=== PATIENT | female | born 1995 | race Caucasian/White ===

== ENCOUNTER 2018-06-13 21:42 | Emergency (ER) | payer OTHER ==
[2018-06-13 23:50] LABS: Absolute Monocytes 0.6 K/uL (0.1-1.3); Absolute Neutrophil 5.9 K/uL (1.8-8.0); Eosinophils % 3.8 % (0-4.4); Hematocrit 41.2 % (36.0-45.0); Lymphocytes % 21.9 % (15.3-44.8); MPV 10.6 fL (7.6-11.3); Monocytes % 7.2 % (3.3-12.3); RBC Red Blood Cell Count 4.42 M/uL (3.86-4.86)
[2018-06-14 00:04] LABS: Protime INR 1.05
[2018-06-14 00:08] LABS: ALT/SGPT 23 U/L (12-78); AST/SGOT 10 U/L (15-37); Albumin 4.3 g/dL (3.4-5.0); Alkaline Phosphatase 73 U/L (45-117); BUN Blood Urea Nitrogen 16 mg/dL (7-18); Bicarbonate 26 mmol/L (21-32); Bilirubin Direct 0.2 mg/dL (0-0.2); Bilirubin Total 0.7 mg/dL (0.2-1.0); Glucose Level 89 mg/dL (74-106); Lipase 139 U/L (73-393); Magnesium 2.2 mg/dL (1.8-2.4); NT PRO-BNP 113 pg/mL (<125); Potassium 3.8 mmol/L (3.5-5.1); Protein, Total 7.5 g/dL (6.4-8.2); Sodium Level 142 mmol/L (136-145); Troponin (Emerg Dept Use Only) < 0.02 ng/mL (0.0-0.045)
[2018-06-14] MEDS ORDERED: MORPHINE 4 MG/ML SYR ONE (01:23)
[2018-06-14] MEDS ORDERED: ONDANSETRON 4 MG/2 ML VIAL ONE (01:24)
--- NOTE | 2018-06-14 01:24 | ER ---
Nurse's Notes [facility] Name: Tiffany Madrid Age: 23 yrs Sex: Female : 1995 Arrival Date: 06/13/2018 Time: 21:46 Bed 24 Private MD: Diagnosis: Malaise and fatigue;Lupus erythematosus Presentation: 06/13 22:17 Presenting complaint: Patient states: Chest pain that is when when she coughs or takes aj1 a deep breath, dizziness, shortness of breath for the past week. Reports non-productive cough, denies fever. Transition of care: patient was not received from another setting of care. Onset of symptoms was June 07, 2017. Risk Assessment: Do you want to hurt yourself or someone else? Patient reports no desire to harm self or others. Initial Sepsis Screen: Does the patient meet any 2 criteria? No. Patient's initial sepsis screen is negative. Does the patient have a suspected source of infection? No. Patient's initial sepsis screen is negative. Care prior to arrival: None. 22:17 Method Of Arrival: Wheelchair aj1 22:17 Acuity: KELSEY 3 aj1 Triage Assessment: 22:20 General: Appears in no apparent distress. uncomfortable, Behavior is calm, cooperative, aj1 appropriate for age. Pain: Complains of pain in chest Pain currently is 8 out of 10 on a pain scale. Neuro: Level of Consciousness is awake, alert, obeys commands. Cardiovascular: Reports chest pain, Patient's skin is warm and dry. Respiratory: Reports cough that is non-productive, Airway is patent Respiratory effort is even, unlabored, Respiratory pattern is regular, symmetrical. 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 - Social history:: Smoking status: Patient/guardian denies using tobacco. - Ebola Screening: : Patient denies travel to an Ebola-affected area in the 21 days before illness onset. - Family history:: not pertinent. Screenin:00 Abuse screen: Denies threats or abuse. Denies injuries from another. Nutritional ca1 screening: No deficits noted. Tuberculosis screening: No symptoms or risk factors identified. Fall Risk None identified. IV access (20 points). Assessment: 23:00 General: Appears in no apparent distress. ill, Behavior is calm, cooperative, ca1 appropriate for age. Pain: Complains of pain in back Pain currently is 7 out of 10 on a pain scale. Neuro: Level of Consciousness is awake, alert, obeys commands, Oriented to person, place, time, situation. Cardiovascular: Heart tones S1 S2 present Capillary refill < 3 seconds Patient's skin is warm and dry. Cardiovascular: Rhythm is sinus rhythm. Respiratory: Airway is patent Respiratory effort is even, unlabored, Respiratory pattern is regular, symmetrical, Breath sounds are clear bilaterally. GI: Abdomen is round non-distended, Bowel sounds present X 4 quads. Abd is soft and non tender X 4 quads. : No signs and/or symptoms were reported regarding the genitourinary system. EENT: No signs and/or symptoms were reported regarding the EENT system. Derm: Skin is intact, Skin is pink, warm \T\ dry. Musculoskeletal: Circulation, motion, and sensation intact. 06/14 00:15 Reassessment: Patient appears in no apparent distress at this time. Patient and/or ca1 family updated on plan of care and expected duration. Pain level reassessed. Patient is alert, oriented x 3, equal unlabored respirations, skin warm/dry/pink. Vital Signs: 06/13 22:20 BP 105 / 66; Pulse 75; Resp 18; Temp 98.4(TE); Pulse Ox 100% on R/A; Height 5 ft. 11 aj1 in. (180.34 cm) (R); Pain 8/10; 23:27 BP 106 / 63; Pulse 65; Resp 18; Pulse Ox 100% on R/A; ca1 06/14 00:15 BP 101 / 76; Pulse 62; Resp 19; Pulse Ox 100% on R/A; ca1 00:43 BP 98 / 66; Pulse 62; Resp 18; Pulse Ox 100% on R/A; ca1 01:29 BP 97 / 75; Pulse 65; Resp 19; Temp 97.6; Pulse Ox 99% ; lt1 ED Course: 06/13 21:46 Patient arrived in ED. ag3 22:19 Triage completed. aj1 22:20 Arm band placed on Patient placed in waiting room. aj1 23:00 Patient has correct armband on for positive identification. Placed in gown. Bed in low ca1 position. Call light in reach. Side rails up X 1. classroom monitor on. Pulse ox on. NIBP on. Warm blanket given. 23:03 Demarco Valentine MD is Attending Physician. saman 23:27 Deana Hussein, ALEX is Primary Nurse. ca1 23:30 Inserted saline lock: 20 gauge in right antecubital area, using aseptic technique. ca1 Blood collected. 23:41 XRAY Chest (1 view) In Process Unspecified. EDMS 02 01:41 No provider procedures requiring assistance completed. IV discontinued, intact, mg2 bleeding controlled, No redness/swelling at site. Pressure dressing applied. Administered Medications: 01:15 Drug: morphine 4 mg Route: IVP; Site: right antecubital; ca1 01:41 Follow up: Response: No adverse reaction; Marked relief of symptoms mg2 01:20 Not Given (Patient Refused; pt has adverse reaction to Zofran, drops BP. ): Zofran 4 mg ca1 IVP once; over 2 minutes 01:40 Drug: SOLU-Medrol 125 mg Route: IVP; Site: right antecubital; mg2 01:41 Follow up: Response: No adverse reaction; Medication administered at discharge. mg2 Outcome: 01:24 Discharge ordered by . saman 01:41 Discharged to home ambulatory, with family. mg2 01:41 Condition: stable 01:41 Discharge instructions given to patient, family, Instructed on discharge instructions, follow up and referral plans. medication usage, Demonstrated understanding of instructions, follow-up care, medications, Prescriptions given X 2. 02:01 Patient left the ED. mg2 Signatures: Dispatcher [employer] EDIN Aislinn Miller RN RN aj1 Demarco Valentine MD MD cha Gardose, Michele, RN RN mg2 Nuha [address] ag3 Deana Hussein RN RN ca1 PerdueBety 1
--- NOTE | 2018-06-14 01:25 | EDPHYS ---
Physician Documentation [facility] Name: Tiffany Madrid Age: 23 yrs Sex: Female : 1995 Arrival Date: 06/13/2018 Time: 21:46 Bed 24 Private MD: ED Physician Demarco Valentine HPI: 06/13 23:19 This 23 yrs old Female presents to ER via Wheelchair with complaints of Pain saman All Over. 23:19 maliase. Onset: The symptoms/episode began/occurred today. Severity of symptoms: At saman their worst the symptoms were moderate in the emergency department the symptoms are unchanged. The patient has not experienced similar symptoms in the past. 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 - Social history:: Smoking status: Patient/guardian denies using tobacco. - Ebola Screening: : Patient denies travel to an Ebola-affected area in the 21 days before illness onset. - Family history:: not pertinent. ROS: 23:19 Constitutional: Negative for fever, chills, and weight loss, Eyes: Negative for injury, saman pain, redness, and discharge, ENT: Negative for injury, pain, and discharge, Neck: Negative for injury, pain, and swelling, Cardiovascular: Negative for chest pain, palpitations, and edema, Respiratory: Negative for shortness of breath, cough, wheezing, and pleuritic chest pain, Abdomen/GI: Negative for abdominal pain, nausea, vomiting, diarrhea, and constipation, Back: Negative for injury and pain, : Negative for injury, bleeding, discharge, and swelling, MS/Extremity: Negative for injury and deformity, Skin: Negative for injury, rash, and discoloration, Neuro: Negative for headache, weakness, numbness, tingling, and seizure, Psych: Negative for depression, anxiety, suicide ideation, homicidal ideation, and hallucinations, Allergy/Immunology: Negative for hives, rash, and allergies, Endocrine: Negative for neck swelling, polydipsia, polyuria, polyphagia, and marked weight changes, Hematologic/Lymphatic: Negative for swollen nodes, abnormal bleeding, and unusual bruising. Exam: 23:19 Constitutional: This is a well developed, well nourished patient who is awake, alert, saman and in no acute distress. Head/Face: Normocephalic, atraumatic. Eyes: Pupils equal round and reactive to light, extra-ocular motions intact. Lids and lashes normal. Conjunctiva and sclera are non-icteric and not injected. Cornea within normal limits. Periorbital areas with no swelling, redness, or edema. ENT: Nares patent. No nasal discharge, no septal abnormalities noted. Tympanic membranes are normal and external auditory canals are clear. Oropharynx with no redness, swelling, or masses, exudates, or evidence of obstruction, uvula midline. Mucous membranes moist. Neck: Trachea midline, no thyromegaly or masses palpated, and no cervical lymphadenopathy. Supple, full range of motion without nuchal rigidity, or vertebral point tenderness. No Meningismus. Chest/axilla: Normal chest wall appearance and motion. Nontender with no deformity. No lesions are appreciated. Cardiovascular: Regular rate and rhythm with a normal S1 and S2. No gallops, murmurs, or rubs. Normal PMI, no JVD. No pulse deficits. Respiratory: Lungs have equal breath sounds bilaterally, clear to auscultation and percussion. No rales, rhonchi or wheezes noted. No increased work of breathing, no retractions or nasal flaring. Abdomen/GI: Soft, non-tender, with normal bowel sounds. No distension or tympany. No guarding or rebound. No evidence of tenderness throughout. Back: No spinal tenderness. No costovertebral tenderness. Full range of motion. Skin: Warm, dry with normal turgor. Normal color with no rashes, no lesions, and no evidence of cellulitis. MS/ Extremity: Pulses equal, no cyanosis. Neurovascular intact. Full, normal range of motion. Neuro: Awake and alert, GCS 15, oriented to person, place, time, and situation. Cranial nerves II-XII grossly intact. Motor strength 5/5 in all extremities. Sensory grossly intact. Cerebellar exam normal. Normal gait. Psych: Awake, alert, with orientation to person, place and time. Behavior, mood, and affect are within normal limits. 06/14 01:24 Musculoskeletal/extremity: DVT Exam: No signs of deep vein thrombosis. no pain, no saman swelling, no tenderness, negative Homans' sign noted on exam, no appreciated bluish discoloration, no erythema, no increased warmth. Vital Signs: 06/13 22:20 BP 105 / 66; Pulse 75; Resp 18; Temp 98.4(TE); Pulse Ox 100% on R/A; Height 5 ft. 11 aj1 in. (180.34 cm) (R); Pain 8/10; 23:27 BP 106 / 63; Pulse 65; Resp 18; Pulse Ox 100% on R/A; ca1 06/14 00:15 BP 101 / 76; Pulse 62; Resp 19; Pulse Ox 100% on R/A; ca1 00:43 BP 98 / 66; Pulse 62; Resp 18; Pulse Ox 100% on R/A; ca1 01:29 BP 97 / 75; Pulse 65; Resp 19; Temp 97.6; Pulse Ox 99% ; lt1 MDM: 06/13 23:03 Patient medically screened. [facility] 23:20 Data reviewed: vital signs, nurses notes, lab test result(s), EKG, radiologic studies, saman plain films. 06/13 23:18 Order name: Basic Metabolic Panel; Complete Time: 01:20 [facility] 06/13 23:18 Order name: CBC with Diff; Complete Time: 01:20 [facility] 06/13 23:18 Order name: LFT's; Complete Time: 01:20 [facility] 06/13 23:18 Order name: Magnesium; Complete Time: :20 [facility] 06/13 23:18 Order name: NT PRO-BNP; Complete Time: 01:20 [facility] 06/13 23:18 Order name: PT-INR; Complete Time: 01:20 [facility] 06/13 23:18 Order name: Troponin (emerg Dept Use Only); Complete Time: :20 [facility] 06/13 23:18 Order name: XRAY Chest (1 view) [facility] 06/13 23:18 Order name: Lipase; Complete Time: 01:20 [facility] 06/13 23:18 Order name: Flu; Complete Time: 01:20 [facility] 06/13 23:18 Order name: UDS [facility] 06/13 23:18 Order name: D-Dimer; Complete Time: 01:20 [facility] 06/14 00:46 Order name: Urine Dipstick--Ancillary (enter results) [facility] 06/14 00:46 Order name: Urine --Ancillary (enter results) [facility] 06/13 23:18 Order name: EKG; Complete Time: 23:19 [facility] 06/13 23:18 Order name: Cardiac monitoring; Complete Time: 23:34 [facility] 06/13 23:18 Order name: EKG - Nurse/Tech; Complete Time: 00:34 [facility] 06/13 23:18 Order name: IV Saline Lock; Complete Time: 00:34 [facility] 06/13 23:18 Order name: Labs collected and sent; Complete Time: 00:34 [facility] 06/13 23:18 Order name: O2 Per Protocol; Complete Time: :34 [facility] 06/13 23:18 Order name: O2 Sat Monitoring; Complete Time: 00:35 [facility] 06/13 23:18 Order name: Urine Dipstick-Ancillary (obtain specimen); Complete Time: 00: [facility] 06/13 23:18 Order name: Urine Test (obtain specimen); Complete Time: 00:34 [facility] Administered Medications: 06/14 01:15 Drug: morphine 4 mg Route: IVP; Site: right antecubital; ca1 01:41 Follow up: Response: No adverse reaction; Marked relief of symptoms mg2 01:20 Not Given (Patient Refused; pt has adverse reaction to Zofran, drops BP. ): Zofran 4 mg ca1 IVP once; over 2 minutes 01:40 Drug: SOLU-Medrol 125 mg Route: IVP; Site: right antecubital; mg2 01:41 Follow up: Response: No adverse reaction; Medication administered at discharge. mg2 Disposition: 06/14/18 01:24 Discharged to Home. Impression: Malaise and fatigue, Lupus erythematosus. - Condition is Stable. - Discharge Instructions: Systemic Lupus Erythematosus, Adult, Weakness, Weakness, [id number]. - Prescriptions for Ibuprofen 600 mg Oral Tablet - take 1 tablet by ORAL route every 6 hours As needed take with food; 20 tablet. Medrol (Romie) 4 mg Oral Tablets, Dose Pack - take 1 tablet by ORAL route as directed - follow package instructions; 1 packet. - Medication Reconciliation Form, Thank You Letter, Antibiotic Education, Prescription Opioid Use, Work release form form. - Follow up: Private Physician; When: 2 - 3 days; Reason: Recheck today's complaints, Continuance of care, Re-evaluation by your physician. - Problem is new. - Symptoms have improved. Signatures: Dispatcher [employer] Aislinn Rivero RN RN aj1 Demarco Valentine MD MD cha Gardose, Michele, RN RN mg2 Jovita, ALEX Leblanc RN ca1 Corrections: (The following items were deleted from the chart) 02:01 01:24 06/14/2018 01:24 Discharged to Home. Impression: Malaise and fatigue; Lupus mg2 erythematosus. Condition is Stable. Forms are Medication Reconciliation Form, Thank You Letter, Antibiotic Education, Prescription Opioid Use. Follow up: Private Physician; When: 2 - 3 days; Reason: Recheck today's complaints, Continuance of care, Re-evaluation by your physician. Problem is new. Symptoms have improved. saman
[2018-06-14 01:34] LABS: Urine Blood NEGATIVE (NEG); Urine Glucose NEGATIVE (NEG); Urine Protein NEGATIVE (NEG); Urine Specific Gravity >1.030 (1.005-1.030); Urine pH 5.5 (5.0-7.0)
[2018-06-14] MEDS ORDERED: METHYLPREDNISOLONE 125 MG INJ ONE (01:44)
[2018-06-14 01:48] LABS: Barbiturates NEGATIVE (NEGATIVE); Benzodiazepines NEGATIVE (NEGATIVE); Cocaine NEGATIVE (NEGATIVE); METHAMPHETAM NEGATIVE (NEGATIVE); Methadone NEGATIVE (NEGATIVE); Opiates NEGATIVE (NEGATIVE); Phencyclidine NEGATIVE (NEGATIVE); THC Cannibis POSITIVE (NEGATIVE)
--- NOTE | 2018-06-14 07:03 | RAD REPORT ---
EXAM DESCRIPTION: RAD - Chest Single View - 06/13/2018 11:43 pm CLINICAL HISTORY: Cough, chest pain COMPARISON: November 2014 TECHNIQUE: AP portable chest image was obtained 2339 hours . FINDINGS: Lungs are clear. Heart and vasculature are normal. No measurable pleural effusion and no p neumothorax. No acute bony abnormality seen. No acute aortic findings suspected. IMPRESSION: No acute cardiopulmonary process. No suspicious change from comparison.
--- NOTE | 2018-06-14 09:49 | EKG ---
Test Date: 2018-06-13 Test Time: 23:52:28 Bar Examiner: THEO MEASUREMENT RESULTS: Intervals: Rate: 57 IA: 136 QRSD: 74 QT: 408 QTc: 397 Aiken: P: 39 IA: 136 QRS: -5 T: 8 INTERPRETIVE STATEMENTS: Sinus bradycardia with sinus arrhythmia Otherwise normal ECG Compared to ECG 12/12/2014 13:47:47 Sinus tachycardia no longer present Electronically Signed On 06-14-18 08:33:24 SERVICE OBSERVER CHIEF by Fernie Maguire
== END 2018-06-14 02:01 | disposition home or self-care (01) ==
LOC: ER 21:42
DX: L93.0 Discoid lupus erythematosus (principal); R53.83 Other fatigue; Z88.8 Allergy status to other drugs, medicaments and biological substances
CPT/HCPCS: 36415; 71045; 80048; 80076; 80307; 81003; 81025; 83690; 83735; 83880; 84484; 85025; 85379; 85610; 87804; 93005; 96374; 96375; 99284; J2405; J2930

== ENCOUNTER 2018-07-18 16:32 | Emergency (ER) | payer OTHER ==
[2018-07-18 18:09] LABS: Urine Bacteria <20 /HPF (<20); Urine Culture Reflex Order NOT NEEDED; Urine RBC NONE SEEN /HPF (NONE SEEN)
[2018-07-18] MEDS ORDERED: KETOROLAC 30 MG/ML INJ ONE (18:20)
--- NOTE | 2018-07-18 18:40 | RAD REPORT ---
EXAM DESCRIPTION: RAD - Chest Pa And Lat (2 Views) - 07/18/2018 6:33 pm CLINICAL HISTORY: lump to chest Chest pain. COMPARISON: Chest Single View dated 06/13/2018; CHEST PA AND LAT 2 VIEW dated 12/12/2014 FINDINGS: The lungs are clear. The heart is normal in size. No displaced fractures. IMPRESSION: No acute or concerning finding suspected.
[2018-07-18] MEDS ORDERED: CYCLOBENZAPRINE 10 MG TAB ONE (19:15)
[2018-07-18 19:16] LABS: Urine Blood NEGATIVE (NEG); Urine Glucose NEGATIVE (NEG); Urine Protein NEGATIVE (NEG); Urine Specific Gravity 1.025 (1.005-1.030)
--- NOTE | 2018-07-18 20:21 | ER ---
Nurse's Notes [facility] Name: Tiffany Madrid Age: 23 yrs Sex: Female : 1995 Arrival Date: 07/18/2018 Time: 16:34 Bed 17 Private MD: Mansoor Hein Diagnosis: Muscle spasm Presentation: 07/18 16:38 Presenting complaint: Patient states: "I have a lump on my shoulder, it showed up 2.5 sv weeks ago." Pt is pointing to the right upper chest wall. Transition of care: patient was not received from another setting of care. Onset of symptoms was June 2018. Care prior to arrival: None. 16:38 Method Of Arrival: Ambulatory sv 16:38 Acuity: KELSEY 4 sv 19:30 Risk Assessment: Do you want to hurt yourself or someone else? Patient reports no jd3 desire to harm self or others. Initial Sepsis Screen: Does the patient meet any 2 criteria? No. Patient's initial sepsis screen is negative. Does the patient have a suspected source of infection? No. Patient's initial sepsis screen is negative. 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 - Social history:: Smoking status: Patient/guardian denies using tobacco. - Ebola Screening: : Patient negative for fever greater than or equal to 101.5 degrees Fahrenheit, and additional compatible Ebola Virus Disease symptoms. Screenin:00 Abuse screen: Denies threats or abuse. Denies injuries from another. Nutritional ss screening: No deficits noted. Tuberculosis screening: Never had TB. Fall Risk None identified. Assessment: 18:00 General: Appears in no apparent distress. comfortable, well groomed, well developed, ss well nourished, Behavior is calm, cooperative. Pain: Complains of pain in anterior aspect of right upper chest Pain currently is 5 out of 10 on a pain scale. Quality of pain is described as tender, Pain began 2.5 weeks ago Is continuous. Neuro: Level of Consciousness is awake, alert, obeys commands, Oriented to person, place, time, situation, Speech is normal. Cardiovascular: Capillary refill < 3 seconds is brisk in bilateral fingers. Respiratory: Reports pain with respiration Airway is patent Respiratory effort is even, unlabored, Respiratory pattern is regular, symmetrical, Breath sounds are clear bilaterally. Denies cough. GI: No signs and/or symptoms were reported involving the gastrointestinal system. : No signs and/or symptoms were reported regarding the genitourinary system. EENT: Nares are clear Oral mucosa is moist. Throat is clear. Derm: Skin is intact, is healthy with good turgor, Skin is dry. Musculoskeletal: Circulation, motion, and sensation intact. Range of motion: intact in all extremities, Swelling present in mild swelling noted to R upper anterior chest wall. Denies injury. No crepitus noted. 19:10 Reassessment: Patient appears in no apparent distress at this time. Patient and/or ss family updated on plan of care and expected duration. Pain level reassessed. Patient is alert, oriented x 3, equal unlabored respirations, skin warm/dry/pink. PT reports that her pain is not any better yet, Flexeril administered as ordered. 19:27 Reassessment: Patient appears in no apparent distress at this time. No changes from jd3 previously documented assessment. Patient and/or family updated on plan of care and expected duration. Pain level reassessed. Patient is alert, oriented x 3, equal unlabored respirations, skin warm/dry/pink. 20:35 Reassessment: Patient appears in no apparent distress at this time. Patient and/or jd3 family updated on plan of care and expected duration. Pain level reassessed. Patient is alert, oriented x 3, equal unlabored respirations, skin warm/dry/pink. Vital Signs: 16:39 BP 123 / 79; Pulse 92; Resp 18; Temp 98.7(O); Pulse Ox 100% ; Height 5 ft. 10 in. sv (177.80 cm); 19:27 Pulse 60; Resp 16 S; Pulse Ox 100% on R/A; jd3 20:36 BP 104 / 68; Pulse 59; Resp 17 S; Pulse Ox 100% on R/A; jd3 ED Course: 16:34 Patient arrived in ED. mr 16:35 Cecilio Hein MD is Private Physician. mr 16:35 Mansoor Hein DO is Private Physician. mr 16:38 Triage completed. sv 16:39 Arm band placed on. sv 17:04 [facility] Virgen [facility]C [facility]. snw 17:05 Demarco Valentine MD is Attending Physician. snw 17:40 Shaniqua Delgado, ALEX is Primary Nurse. ss 17:54 Urine collected: clean catch specimen, clear. mh5 17:55 Patient has correct armband on for positive identification. Placed in gown. Bed in low mh5 position. Call light in reach. Side rails up X 1. Adult w/ patient. Warm blanket given. Pulse ox on. NIBP on. 17:55 Urine Microscopic Only Sent. mh5 18:32 Chest Pa And Lat (2 Views) XRAY In Process Unspecified. EDMS 20:20 Mansoor Hein DO is Referral Physician. snw 20:35 No provider procedures requiring assistance completed. Patient did not have IV access jd3 during this emergency room visit. Administered Medications: 18:13 Drug: TORadol 60 mg Route: IM; Site: right gluteus; ss 19:09 Follow up: Response: No adverse reaction ss 19:09 Drug: Flexeril 10 mg Route: PO; ss 20:37 Follow up: Response: No adverse reaction jd3 Outcome: 20:20 Discharge ordered by . snw 20:36 Discharged to home ambulatory, with family. jd3 20:36 Condition: stable 20:36 Discharge instructions given to patient, family, Instructed on discharge instructions, follow up and referral plans. medication usage, Demonstrated understanding of instructions, follow-up care, medications, Prescriptions given X 2. 20:37 Patient left the ED. jd3 Signatures: Dispatcher [employer] EDNV Suyapa Sol RN RN Loretta Virgen FNP-C HEDIS MANAGER-[facility] Enriqueta Olivarez mr Shaniqua Delgado, ALEX JOHNSON Madison Cash [facility] Gildardo Ma RN RN jd3 Corrections: (The following items were deleted from the chart) 19:11 19:10 Reassessment: Patient appears in no apparent distress at this time. Patient ss and/or family updated on plan of care and expected duration. Pain level reassessed. Patient is alert, oriented x 3, equal unlabored respirations, skin warm/dry/pink. ss
--- NOTE | 2018-07-18 20:21 | EDPHYS ---
Physician Documentation [facility] Name: Tiffany Madrid Age: 23 yrs Sex: Female : 1995 Arrival Date: 07/18/2018 Time: 16:34 Bed 17 Private MD: Laila Heinh ED Physician Demarco Valentine HPI: 07/18 17:23 This 23 yrs old Female presents to ER via Ambulatory with complaints of Lump snw on chest. 17:23 Onset: The symptoms/episode began/occurred 2.5 week(s) ago, and became persistent. snw Associated signs and symptoms: Pertinent positives: The patient does not have any pertinent positive signs or symptoms associated with pediatric illness. Modifying factors: the patient symptoms are aggravated by movement. The patient has not experienced similar symptoms in the past. It is unknown whether or not the patient has recently seen a physician. 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 - Social history:: Smoking status: Patient/guardian denies using tobacco. - Ebola Screening: : Patient negative for fever greater than or equal to 101.5 degrees Fahrenheit, and additional compatible Ebola Virus Disease symptoms. ROS: 17:22 Constitutional: Negative for fever, chills, and weight loss, Eyes: Negative for injury, snw pain, redness, and discharge, ENT: Negative for injury, pain, and discharge, Neck: Negative for injury, pain, and swelling, Cardiovascular: Negative for chest pain, palpitations, and edema, Respiratory: Negative for shortness of breath, cough, wheezing, and pleuritic chest pain, Abdomen/GI: Negative for abdominal pain, nausea, vomiting, diarrhea, and constipation, Back: Negative for injury and pain, : Negative for injury, bleeding, discharge, and swelling, MS/Extremity: Negative for injury and deformity, right chest wall with tenderness, decreased ROM, palpable area of tenderness and edema Skin: Negative for injury, rash, and discoloration, Neuro: Negative for headache, weakness, numbness, tingling, and seizure. Exam: 17:20 Constitutional: This is a well developed, well nourished patient who is awake, alert, snw and in no acute distress. Head/Face: Normocephalic, atraumatic. Eyes: Pupils equal round and reactive to light, extra-ocular motions intact. Lids and lashes normal. Conjunctiva and sclera are non-icteric and not injected. Cornea within normal limits. Periorbital areas with no swelling, redness, or edema. ENT: Nares patent. No nasal discharge, no septal abnormalities noted. Tympanic membranes are normal and external auditory canals are clear. Oropharynx with no redness, swelling, or masses, exudates, or evidence of obstruction, uvula midline. Mucous membranes moist. Neck: Trachea midline, no thyromegaly or masses palpated, and no cervical lymphadenopathy. Supple, full range of motion without nuchal rigidity, or vertebral point tenderness. No Meningismus. Chest/axilla: tender chest wall with normal appearance, decreased motion to right upper chest and extremity. tender with no deformity. No lesions are appreciated. Cardiovascular: Regular rate and rhythm with a normal S1 and S2. No gallops, murmurs, or rubs. Normal PMI, no JVD. No pulse deficits. Respiratory: Lungs have equal breath sounds bilaterally, clear to auscultation and percussion. No rales, rhonchi or wheezes noted. No increased work of breathing, no retractions or nasal flaring. Abdomen/GI: Soft, non-tender, with normal bowel sounds. No distension or tympany. No guarding or rebound. No evidence of tenderness throughout. Back: No spinal tenderness. No costovertebral tenderness. Full range of motion. Skin: Warm, dry with normal turgor. Normal color with no rashes, no lesions, and no evidence of cellulitis. MS/ Extremity: Pulses equal, no cyanosis. Neurovascular intact. Full, normal range of motion. Neuro: Awake and alert, GCS 15, oriented to person, place, time, and situation. Cranial nerves II-XII grossly intact. Motor strength 5/5 in all extremities. Sensory grossly intact. Cerebellar exam normal. Normal gait. Vital Signs: 16:39 BP 123 / 79; Pulse 92; Resp 18; Temp 98.7(O); Pulse Ox 100% ; Height 5 ft. 10 in. sv (177.80 cm); 19:27 Pulse 60; Resp 16 S; Pulse Ox 100% on R/A; jd3 20:36 BP 104 / 68; Pulse 59; Resp 17 S; Pulse Ox 100% on R/A; jd3 MDM: 17:11 Patient medically screened. snw 20:22 Data reviewed: vital signs, nurses notes. Data interpreted: Pulse oximetry: on room air snw is 100 %. Interpretation: normal. Counseling: I had a detailed discussion with the patient and/or guardian regarding: the historical points, exam findings, and any diagnostic results supporting the discharge/admit diagnosis, lab results, radiology results, the need for outpatient follow up, to return to the emergency department if symptoms worsen or persist or if there are any questions or concerns that arise at home. Special discussion: Based on the history and exam findings, there is no indication for further emergent testing or inpatient evaluation. I discussed with the patient/guardian the need to see the primary care provider for further evaluation of the symptoms. 07/18 17:20 Order name: Urine Microscopic Only; Complete Time: 18:13 snw 07/18 18:17 Order name: Urine Dipstick--Ancillary (enter results); Complete Time: 19:17 bd 07/18 17:20 Order name: Chest Pa And Lat (2 Views) XRAY; Complete Time: 18:47 snw 07/18 18:17 Order name: Urine --Ancillary (enter results); Complete Time: 19:17 bd 07/18 17:20 Order name: Urine Test (obtain specimen); Complete Time: 17:55 snw 07/18 17:20 Order name: Urine Dipstick-Ancillary (obtain specimen); Complete Time: 17:55 snw Administered Medications: 18:13 Drug: TORadol 60 mg Route: IM; Site: right gluteus; ss 19:09 Follow up: Response: No adverse reaction ss 19:09 Drug: Flexeril 10 mg Route: PO; ss 20:37 Follow up: Response: No adverse reaction jd3 Disposition: 07/19 08:07 Co-signature as Attending Physician, Demarco Valentine MD I agree with the assessment and saman plan of care. Disposition: 07/18/18 20:20 Discharged to Home. Impression: Muscle spasm. - Condition is Stable. - Discharge Instructions: Muscle Cramps and Spasms, Muscle Strain, Heat Therapy. - Prescriptions for Diclofenac Sodium 75 mg Oral Tablet Sustained Release - take 1 tablet by ORAL route 2 times per day; 30 tablet. orphenadrine citrate 100 mg Oral Tablet Sustained Release - take 1 tablet by ORAL route 2 times per day As needed; 20 tablet. - Medication Reconciliation Form, Thank You Letter, Antibiotic Education, Prescription Opioid Use form. - Work release form (07/19/18 09:12). [email or web address] - Follow up: Mansoor Hein DO; When: Tomorrow; Reason: Recheck today's complaints, Continuance of care, Re-evaluation by your physician. Follow up: Emergency Department; When: As needed; Reason: Worsening of condition. Signatures: Dispatcher [employer] EDSuyapa Gonzalez, RN RN Demarco Givens MD MD cha Therrien, Shelly, QUARRY EXTRACTION WORKER-C QUARRY EXTRACTION WORKER-Csnw Shaniqua Delgado RN RN ss Davies, Jonathon, RN RN jd3 Jackson, Kandis [email or web address] Corrections: (The following items were deleted from the chart) 07/18 18:18 18:17 URINE DIPSTICK--ANCILLARY+U.LAB.BRZ ordered. [facility] 20:37 20:20 07/18/2018 20:20 Discharged to Home. Impression: Muscle spasm. Condition is jd3 Stable. Forms are Medication Reconciliation Form, Thank You Letter, Antibiotic Education, Prescription Opioid Use. Follow up: Mansoor Hein; When: Tomorrow; Reason: Recheck today's complaints, Continuance of care, Re-evaluation by your physician. Follow up: Emergency Department; When: As needed; Reason: Worsening of condition. snw
== END 2018-07-18 20:37 | disposition home or self-care (01) ==
LOC: ER 16:32
DX: M62.838 Other muscle spasm (principal); Z88.8 Allergy status to other drugs, medicaments and biological substances
CPT/HCPCS: 71046; 81003; 81015; 81025; 96372; 99284

== ENCOUNTER 2018-08-26 01:01 | Emergency (ER) | payer OTHER ==
[2018-08-26] MEDS ORDERED: IPRATROPIUM BROM 0.5MG/2.5ML ONE (01:24)
[2018-08-26] MEDS ORDERED: ALBUTEROL 2.5 MG/3 ML NEB SOL ONE (01:24)
[2018-08-26] MEDS ORDERED: METHYLPREDNISOLONE 125 MG INJ ONE (01:57)
[2018-08-26] MEDS ORDERED: MORPHINE 2 MG/ML SYR ONE (02:25)
[2018-08-26 02:35] LABS: Protime INR 1.11
[2018-08-26 03:17] LABS: ALT/SGPT 28 U/L (12-78); AST/SGOT 13 U/L (15-37); Alkaline Phosphatase 78 U/L (45-117); BUN Blood Urea Nitrogen 15 mg/dL (7-18); Bicarbonate 24 mmol/L (21-32); Bilirubin Direct 0.2 mg/dL (0-0.2); Bilirubin Total 0.8 mg/dL (0.2-1.0); Glucose Level 89 mg/dL (74-106); Magnesium 2.3 mg/dL (1.8-2.4); NT PRO-BNP 149 pg/mL (<125); Potassium 3.5 mmol/L (3.5-5.1); Protein, Total 7.8 g/dL (6.4-8.2); Sodium Level 143 mmol/L (136-145); Troponin (Emerg Dept Use Only) < 0.02 ng/mL (0.0-0.045)
[2018-08-26] MEDS ORDERED: LEVALBUTEROL 1.25 MG/3 ML NEB ONE (03:21)
--- NOTE | 2018-08-26 03:42 | ER ---
Nurse's Notes [facility] Name: Tiffany Madrid Age: 23 yrs Sex: Female : 1995 Arrival Date: 08/26/2018 Time: 01:04 Bed 4 Private MD: Diagnosis: Unspecified asthma with (acute) exacerbation Presentation: 08/26 01:05 Presenting complaint: Patient states: that she has been having shortness of breath on fc and off x 4 days. It got really bad today after she got into an argument with S.O. and had a panic attack. 01:05 Transition of care: patient was not received from another setting of care. Onset of fc symptoms was August 23, 2018. Risk Assessment: Do you want to hurt yourself or someone else? Patient reports no desire to harm self or others. Initial Sepsis Screen: Does the patient meet any 2 criteria? RR > 20 per min. Yes Does the patient have a suspected source of infection? No. Patient's initial sepsis screen is negative. Care prior to arrival: None. 01:05 Method Of Arrival: Ambulatory 01:05 Acuity: KELSEY 3 fc Triage Assessment: 01:05 General: Appears uncomfortable, obese, Behavior is cooperative, appropriate for age, fc anxious. Pain: Complains of pain in chest Pain currently is 2 out of 10 on a pain scale. Quality of pain is described as aching, Pain began gradually, Is episodic. EENT: No deficits noted. Neuro: Level of Consciousness is awake, alert, obeys commands, Oriented to person, place, time, situation, Appropriate for age. Cardiovascular: Reports chest pain, shortness of breath, Heart tones S1 S2 Capillary refill < 3 seconds Pulses are all present. Rhythm is regular Chest pain is described as vague, quality is aching is located in chest wall began 1 hour prior to arrival. Respiratory: Reports shortness of breath labored breathing Airway is patent Trachea midline Respiratory effort is gasping, weak, Respiratory pattern is regular, tachypnea Breath sounds with wheezes bilaterally. Onset: The symptoms/episode began/occurred gradually, the patient has moderate shortness of breath. GI: No deficits noted. : No deficits noted. Derm: Skin is intact, Skin is clammy, Skin is pale, Skin temperature is warm. Musculoskeletal: Circulation, motion, and sensation intact. Capillary refill < 3 seconds, Range of motion: intact in all extremities. 01:33 General: Appears in no apparent distress. Behavior is calm, cooperative. Pain: Denies ak1 pain. EENT: No signs and/or symptoms were reported regarding the EENT system. Neuro: Level of Consciousness is awake, alert, obeys commands, Oriented to person, place, time, situation, Moves all extremities. Speech is normal. Cardiovascular: No deficits noted. Respiratory: Reports shortness of breath after argument with S.O. Respiratory: Onset: The symptoms/episode began/occurred today, the patient has mild shortness of breath. GI: No signs and/or symptoms were reported involving the gastrointestinal system. : No signs and/or symptoms were reported regarding the genitourinary system. Derm: No signs and/or symptoms reported regarding the dermatologic system. Musculoskeletal: No signs and/or symptoms reported regarding the musculoskeletal system. Historical: - Allergies: 01:25 Lorazepam; 01:25 meloxicam; 01:25 Phenergan; 01:25 Zofran; fc - Home Meds: 01:25 Metoprolol Tartrate Oral 2 times per day [Active]; albuterol sulfate 90 mcg/actuation Inhl HFAA 1 puff every 4-6 hours [Active]; - PMHx: 01:25 Asthma; Lupus; Anxiety; 01:28 [place]-H[place] Syndrome; fc - PSHx: 01:25 heart surg; bone marrow; fc - Immunization history:: Last tetanus immunization: up to date. - Social history:: Smoking status: Patient/guardian denies using tobacco, Patient/guardian denies using alcohol, street drugs. - Ebola Screening: : Patient negative for fever greater than or equal to 101.5 degrees Fahrenheit, and additional compatible Ebola Virus Disease symptoms Patient denies exposure to infectious person Patient denies travel to an Ebola-affected area in the 21 days before illness onset. Screenin:27 Abuse screen: Denies threats or abuse. Nutritional screening: No deficits noted. Tuberculosis screening: No symptoms or risk factors identified. Fall Risk None identified. Assessment: 01:20 Reassessment: Pt states that she had the CXR and does not want any other testing until fc her neb tx's are done and she see's how she feels. 01:34 Respiratory: Airway is patent pt receiving neb treatment Respiratory effort is ak1 unlabored. 03:53 Reassessment: Patient appears in no apparent distress at this time. No changes from ak1 previously documented assessment. pt resp even and unlabored. Vital Signs: 01:05 BP 111 / 75; Pulse 85; Resp 26; Temp 97.8(O); Pulse Ox 98% on R/A; Weight 99.79 kg (R); fc Height 5 ft. 10 in. (177.80 cm) (R); Pain 2/10; 02:04 BP 118 / 83; Pulse 98; Resp 26; Temp 98; Pulse Ox 96% on R/A; ak1 03:11 BP 117 / 77; Pulse 84; Resp 28; Pulse Ox 100% on R/A; ak1 03:11 Temp 97.6(T); ak1 03:43 BP 121 / 93; Pulse 89; Resp 18; Pulse Ox 97% on R/A; ak1 01:05 Body Mass Index 31.57 (99.79 kg, 177.80 cm) ED Course: 01:04 Patient arrived in ED. mr 01:05 Arm band placed on Patient placed in an exam room, on a stretcher. fc 01:05 Patient has correct armband on for positive identification. Placed in gown. Bed in low fc position. Call light in reach. environmental monitoring specialist on. Pulse ox on. NIBP on. 01:07 Ari Fuller NP is PHCP. pm1 01:07 Demarco Valentine MD is Attending Physician. pm1 01:18 X-ray(s) taken. fc 01:26 Chest Single View XRAY In Process Unspecified. EDMS 01:26 Triage completed. fc 01:34 Chante Calvo, RN is Primary Nurse. ak1 01:56 Initial lab(s) drawn, by ED staff, sent to lab. EKG done, by ED staff, reviewed by [email or web address] Demarco Valentine MD. Inserted saline lock: 20 gauge in right antecubital area, using aseptic technique. ,using aseptic technique. placed by Anselmo Nance Blood collected. 03:42 Live Smith MD is Referral Physician. pm1 03:44 No provider procedures requiring assistance completed. ak1 03:53 IV discontinued, intact, bleeding controlled, No redness/swelling at site. Pressure ak1 dressing applied. Administered Medications: 01:15 Drug: Albuterol - atroVENT (3:1) (2.5 mg - 0.5 mg) 3 ml Route: Nebulizer; fc 01:48 Follow up: Response: No adverse reaction; Wheezing diminished fc 01:38 CANCELLED (Patient Refused): SOLU-Medrol 125 mg IM once ak1 01:56 Drug: SOLU-Medrol 125 mg Route: IVP; Site: right antecubital; ak1 02:18 Follow up: Response: No adverse reaction ak1 02:18 Drug: morphine 2 mg Route: IVP; Site: right antecubital; ak1 03:01 Follow up: Response: No adverse reaction ak1 03:10 Drug: Xopenex 1.25 mg Route: Inhalation; ak1 Outcome: 03:42 Discharge ordered by MD. pm1 03:44 Discharged to home via wheelchair, with family. ak1 03:44 Condition: improved 03:44 Discharge instructions given to patient, family, Instructed on discharge instructions, follow up and referral plans. no drinking with medication, no driving heavy equipment, medication usage, Demonstrated understanding of instructions, follow-up care, medications, Prescriptions given X 4. 03:54 Patient left the ED. ak1 Signatures: Dispatcher [employer] Enriqueta Stovall Felicia, RN RN fc Krenek, Amber, RN RN ak1 Ari Fuller, SCREEN CUTTER AND TRIMMER SCREEN CUTTER AND TRIMMER pm1
--- NOTE | 2018-08-26 03:42 | EDPHYS ---
Physician Documentation [facility] Name: Tiffany Madrid Age: 23 yrs Sex: Female : 1995 Arrival Date: 08/26/2018 Time: 01:04 Bed 4 Private MD: ED Physician Demarco Valentine HPI: 08/26 02:15 This 23 yrs old Female presents to ER via Ambulatory with complaints of pm1 Breathing Difficulty. 02:15 The patient has shortness of breath at rest. Onset: The symptoms/episode began/occurred pm1 4 day(s) ago. Duration: The symptoms are intermittent. The patient's shortness of breath is aggravated by anxiety attack and argument with significant other today prior to arrival made her shortness of breath worse. Patient has asthma attacks at least two times per week. Patient takes albuterol inhaler only for asthma management. Associated signs and symptoms: Pertinent positives: non-productive cough, Pertinent negatives: productive cough, dizziness, fever, nausea, vomiting. Severity of symptoms: in the emergency department the symptoms are worse. The patient has experienced similar episodes in the past, multiple times. The patient has not recently seen a physician. 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 - Social history:: Smoking status: Patient/guardian denies using tobacco, Patient/guardian denies using alcohol, street drugs. - Ebola Screening: : Patient negative for fever greater than or equal to 101.5 degrees Fahrenheit, and additional compatible Ebola Virus Disease symptoms Patient denies exposure to infectious person Patient denies travel to an Ebola-affected area in the 21 days before illness onset. ROS: 02:15 Constitutional: Negative for fever, chills, and weight loss, Eyes: Negative for injury, pm1 pain, redness, and discharge, ENT: Negative for injury, pain, and discharge, Neck: Negative for injury, pain, and swelling, Abdomen/GI: Negative for abdominal pain, nausea, vomiting, diarrhea, and constipation, Back: Negative for injury and pain. 02:15 : Negative for injury, bleeding, discharge, and swelling. 02:15 MS/Extremity: Negative for injury and deformity, Skin: Negative for injury, rash, and discoloration, Neuro: Negative for headache, weakness, numbness, tingling, and seizure. 02:15 Cardiovascular: Positive for chest pain, Negative for edema, palpitations. 02:15 Respiratory: Positive for cough, with no reported sputum, shortness of breath, wheezing. 02:15 Psych: Positive for anxiety, Negative for drug dependence, alcohol dependence, auditory hallucinations, visual hallucinations, insomnia, suicide gesture, suicidal ideation. Exam: 02:15 Constitutional: This is a well developed, well nourished patient who is awake, alert, pm1 and in no acute distress. Head/Face: Normocephalic, atraumatic. Eyes: Pupils equal round and reactive to light, extra-ocular motions intact. Lids and lashes normal. Conjunctiva and sclera are non-icteric and not injected. Cornea within normal limits. Periorbital areas with no swelling, redness, or edema. ENT: Nares patent. No nasal discharge, no septal abnormalities noted. Tympanic membranes are normal and external auditory canals are clear. Oropharynx with no redness, swelling, or masses, exudates, or evidence of obstruction, uvula midline. Mucous membranes moist. Neck: Trachea midline, no thyromegaly or masses palpated, and no cervical lymphadenopathy. Supple, full range of motion without nuchal rigidity, or vertebral point tenderness. No Meningismus. Chest/axilla: Normal chest wall appearance and motion. Nontender with no deformity. No lesions are appreciated. Cardiovascular: Regular rate and rhythm with a normal S1 and S2. No gallops, murmurs, or rubs. Normal PMI, no JVD. No pulse deficits. 02:15 Abdomen/GI: Soft, non-tender, with normal bowel sounds. No distension or tympany. No guarding or rebound. No evidence of tenderness throughout. Back: No spinal tenderness. No costovertebral tenderness. Full range of motion. Skin: Warm, dry with normal turgor. Normal color with no rashes, no lesions, and no evidence of cellulitis. MS/ Extremity: Pulses equal, no cyanosis. Neurovascular intact. Full, normal range of motion. 02:15 Respiratory: the patient does not display signs of respiratory distress, Respirations: normal, Breath sounds: wheezing: expiratory is heard diffusely. 02:15 Neuro: Orientation: is normal, Motor: is normal, moves all fours, Sensation: is normal, no obvious gross deficits, Gait: is steady, at a normal pace, without difficulty. Vital Signs: 01:05 BP 111 / 75; Pulse 85; Resp 26; Temp 97.8(O); Pulse Ox 98% on R/A; Weight 99.79 kg (R); fc Height 5 ft. 10 in. (177.80 cm) (R); Pain 2/10; 02:04 BP 118 / 83; Pulse 98; Resp 26; Temp 98; Pulse Ox 96% on R/A; ak1 03:11 BP 117 / 77; Pulse 84; Resp 28; Pulse Ox 100% on R/A; ak1 03:11 Temp 97.6(T); ak1 03:43 BP 121 / 93; Pulse 89; Resp 18; Pulse Ox 97% on R/A; ak1 01:05 Body Mass Index 31.57 (99.79 kg, 177.80 cm) fc MDM: 01:09 Patient medically screened. saman 01:30 ED course: Patient did not want to get cardiac work up until breathing treatment pm1 completed. 03:36 Data reviewed: vital signs. Data interpreted: Pulse oximetry: on room air is 100 %. pm1 Interpretation: normal. Counseling: I had a detailed discussion with the patient and/or guardian regarding: the historical points, exam findings, and any diagnostic results supporting the discharge/admit diagnosis, lab results, radiology results, the need for outpatient follow up, to return to the emergency department if symptoms worsen or persist or if there are any questions or concerns that arise at home. 08/26 01:36 Order name: Basic Metabolic Panel; Complete Time: 03:21 pm1 08/26 01:36 Order name: LFT's; Complete Time: 03:21 pm1 08/26 01:36 Order name: Magnesium; Complete Time: 03:21 pm1 08/26 01:36 Order name: NT PRO-BNP; Complete Time: 03:21 pm08/26 01:36 Order name: PT-INR; Complete Time: 03:21 08/26 01:19 Order name: Chest Single View XRAY 08/26 01:36 Order name: Troponin (emerg Dept Use Only); Complete Time: 03:21 08/26 01:38 Order name: Acetaminophen; Complete Time: 03:36 pm08/26 01:38 Order name: ETOH Level; Complete Time: 03:36 pm08/26 01:38 Order name: Salicylate; Complete Time: 03:21 pm08/26 01:38 Order name: Urine Drug Screen 08/26 03:27 Order name: Urine Dipstick--Ancillary (enter results) 08/26 03:30 Order name: Urine --Ancillary (enter results) 08/26 01:36 Order name: EKG; Complete Time: 01:37 08/26 01:36 Order name: Cardiac monitoring; Complete Time: 01:47 08/26 01:36 Order name: EKG - Nurse/Tech; Complete Time: 01:55 08/26 01:36 Order name: IV Saline Lock; Complete Time: 01:47 08/26 01:36 Order name: Labs collected and sent; Complete Time: 01:47 08/26 01:36 Order name: O2 Per Protocol; Complete Time: 01:38 08/26 01:36 Order name: O2 Sat Monitoring; Complete Time: 01:38 pm08/26 03:10 Order name: Urine Dipstick-Ancillary (obtain specimen); Complete Time: 03:10 ak Administered Medications: 01:15 Drug: Albuterol - atroVENT (3:1) (2.5 mg - 0.5 mg) 3 ml Route: Nebulizer; fc 01:48 Follow up: Response: No adverse reaction; Wheezing diminished fc 01:38 CANCELLED (Patient Refused): SOLU-Medrol 125 mg IM once ak1 01:56 Drug: SOLU-Medrol 125 mg Route: IVP; Site: right antecubital; ak1 02:18 Follow up: Response: No adverse reaction ak1 02:18 Drug: morphine 2 mg Route: IVP; Site: right antecubital; ak1 03:01 Follow up: Response: No adverse reaction ak1 03:10 Drug: Xopenex 1.25 mg Route: Inhalation; ak1 Disposition: 08/26/18 03:42 Discharged to Home. Impression: Unspecified asthma with (acute) exacerbation. - Condition is Stable. - Discharge Instructions: Asthma, Adult, How to Use an Inhaler. - Prescriptions for Prednisone 20 mg Oral Tablet - take 3 tablet by ORAL route once daily for 5 days; 15 tablet. Albuterol Sulfate 90 mcg/actuation - inhale 1-2 puff by INHALATION route every 4-6 hours; 1 Inhaler. Zithromax Z- Romie 250 mg Oral Tablet - take 1 tablet by ORAL route as directed for 5 days Day 1 - take two (2) tablets one time. Day 2, 3, 4 , 5 take one (1) tablet once daily.; 6 tablet. Tramadol 50 mg Oral Tablet - take 1 tablet by ORAL route every 8 hours as needed; 12 tablet. - Medication Reconciliation Form, Thank You Letter, Antibiotic Education, Prescription Opioid Use form. - Work release form (08/26/18 03:59). fc - Follow up: Emergency Department; When: As needed; Reason: Worsening of condition. Follow up: Private Physician; When: 2 - 3 days; Reason: Recheck today's complaints, Continuance of care, Re-evaluation by your physician. Follow up: Live Smith MD; When: 2 - 3 days; Reason: Recheck today's complaints, Continuance of care, Re-evaluation by your physician. Addendum: 08/28/2018 11:02 Co-signature as Attending Physician, Demarco Valentine MD I agree with the assessment and c peters plan of care. Signatures: Dispatcher [employer] Demarco Ceron MD MD cha Chretien, Felicia, RN RN Chante Calvo RN RN ak1 Ari Fuller NP MANAGER QUALITY pm1 Corrections: (The following items were deleted from the chart) 08/26 01:38 01:11 SOLU-Medrol 125 mg IM once ordered. pm1 ak1 03:54 03:42 08/26/2018 03:42 Discharged to Home. Impression: Unspecified asthma with (acute) ak1 exacerbation. Condition is Stable. Forms are Medication Reconciliation Form, Thank You Letter, Antibiotic Education, Prescription Opioid Use. Follow up: Emergency Department; When: As needed; Reason: Worsening of condition. Follow up: Private Physician; When: 2 - 3 days; Reason: Recheck today's complaints, Continuance of care, Re-evaluation by your physician. Follow up: Live Smith; When: 2 - 3 days; Reason: Recheck today's complaints, Continuance of care, Re-evaluation by your physician. pm1
[2018-08-26 04:33] LABS: Barbiturates NEGATIVE (NEGATIVE); Benzodiazepines NEGATIVE (NEGATIVE); Cocaine NEGATIVE (NEGATIVE); METHAMPHETAM NEGATIVE (NEGATIVE); Methadone NEGATIVE (NEGATIVE); Opiates NEGATIVE (NEGATIVE); Phencyclidine NEGATIVE (NEGATIVE); THC Cannibis POSITIVE (NEGATIVE)
[2018-08-26 04:41] LABS: Urine Blood NEGATIVE (NEG); Urine Glucose NEGATIVE (NEG); Urine Protein NEGATIVE (NEG)
--- NOTE | 2018-08-26 07:47 | EKG ---
Test Date: 2018-08-26 Test Time: 01:50:44 Director Database: DAREN MEASUREMENT RESULTS: Intervals: Rate: 93 DC: 120 QRSD: 84 QT: 360 QTc: 447 [place]: P: 7 DC: 120 QRS: 21 T: 266 INTERPRETIVE STATEMENTS: Sinus rhythm with marked sinus arrhythmia ST & T wave abnormality, consider inferolateral ischemia Abnormal ECG Compared to ECG 06/13/2018 23:52:28 ST (T wave) deviation now present Possible ischemia now present Sinus bradycardia no longer present Electronically Signed On 08-26-18 07:46:32 CDT by Anderson Harrison
--- NOTE | 2018-08-26 11:15 | RAD REPORT ---
EXAM DESCRIPTION: RAD - Chest Single View - 08/26/2018 1:27 am CLINICAL HISTORY: COUGH Chest pain. COMPARISON: Chest Pa And Lat (2 Views) dated 07/18/2018; Chest Single View dated 06/13/2018; CHEST PA AND LAT 2 VIEW dated 12/12/2014 FINDINGS: Portable technique limits examination quality. Right parahilar lung markings are prominent suggesting a small infiltrate/ pneumonia in the right sup rahilar region. The lungs are otherwise clear. The heart is normal in size. No displaced fractures.
== END 2018-08-26 03:54 | disposition home or self-care (01) ==
LOC: ER 01:01
DX: J45.901 Unspecified asthma with (acute) exacerbation (principal); F41.9 Anxiety disorder, unspecified; M30.1 Polyarteritis with lung involvement [Churg-Strauss]; Z88.6 Allergy status to analgesic agent; Z88.8 Allergy status to other drugs, medicaments and biological substances
CPT/HCPCS: 36415; 71045; 80048; 80076; 80307; 80320; 80329; 81003; 81025; 83735; 83880; 84484; 85610; 93005; J2270; J2930

== ENCOUNTER 2018-09-30 23:03 | Emergency (ER) | payer OTHER ==
[2018-10-01 00:37] LABS: Protime INR 0.99
[2018-10-01 00:38] LABS: Absolute Lymphocytes (CBC) 1.6 K/uL (0.7-4.9); Absolute Monocytes 0.6 K/uL (0.1-1.3); Absolute Neutrophil 4.5 K/uL (1.8-8.0); Basophils % 1.3 % (0-1.3); Eosinophils % 4.8 % (0-4.4); Hematocrit 40.1 % (36.0-45.0); Lymphocytes % 22.5 % (15.3-44.8); MPV 10.5 fL (7.6-11.3); Monocytes % 8.4 % (3.3-12.3); RBC Red Blood Cell Count 4.43 M/uL (3.86-4.86)
[2018-10-01 00:44] LABS: Barbiturates NEGATIVE (NEGATIVE); Benzodiazepines NEGATIVE (NEGATIVE); Cocaine NEGATIVE (NEGATIVE); METHAMPHETAM NEGATIVE (NEGATIVE); Methadone NEGATIVE (NEGATIVE); Opiates NEGATIVE (NEGATIVE); Phencyclidine NEGATIVE (NEGATIVE); THC Cannibis POSITIVE (NEGATIVE)
[2018-10-01 01:01] LABS: ALT/SGPT 33 U/L (12-78); AST/SGOT 15 U/L (15-37); Albumin 3.6 g/dL (3.4-5.0); Alkaline Phosphatase 68 U/L (45-117); BUN Blood Urea Nitrogen 20 mg/dL (7-18); Bicarbonate 23 mmol/L (21-32); Bilirubin Direct 0.1 mg/dL (0-0.2); Bilirubin Total 0.6 mg/dL (0.2-1.0); Glucose Level 92 mg/dL (74-106); Magnesium 2.2 mg/dL (1.8-2.4); Potassium 3.9 mmol/L (3.5-5.1); Sodium Level 141 mmol/L (136-145); Troponin (Emerg Dept Use Only) < 0.02 ng/mL (0.0-0.045)
[2018-10-01] MEDS ORDERED: FENTANYL CITR 100 MCG/2 ML ONE (01:10)
[2018-10-01] MEDS ORDERED: NA CHLORIDE 0.9% 1,000 ML ONE (01:11)
[2018-10-01 01:33] LABS: Urine Blood NEGATIVE (NEG); Urine Glucose NEGATIVE (NEG); Urine Protein NEGATIVE (NEG); Urine Specific Gravity 1.025 (1.005-1.030); Urine pH 6.5 (5.0-7.0)
--- NOTE | 2018-10-01 02:00 | ER ---
Nurse's Notes [facility] Name: Tiffany Madrid Age: 23 yrs Sex: Female : 1995 Arrival Date: 09/30/2018 Time: 23:05 Bed 25 Private MD: Mansoor Hein Diagnosis: Vomiting;Cannabis abuse;Chest pain, unspecified Presentation: 10/01 00:14 Presenting complaint: Patient states: I have been vomiting for 24 hours. I am also ca1 having pain in my back, my chest and a headache. Transition of care: patient was not received from another setting of care. Onset of symptoms was October 01, 2018. Risk Assessment: Do you want to hurt yourself or someone else? Patient reports no desire to harm self or others. Initial Sepsis Screen: Does the patient meet any 2 criteria? No. Patient's initial sepsis screen is negative. Does the patient have a suspected source of infection? No. Patient's initial sepsis screen is negative. Care prior to arrival: None. 00:14 Method Of Arrival: Wheelchair ca1 00:14 Acuity: KELSEY 3 ca1 Triage Assessment: 00:20 General: Appears in no apparent distress. uncomfortable, Behavior is calm, cooperative, ca1 appropriate for age. Pain: Complains of pain in face, scalp, back and chest Pain currently is 8 out of 10 on a pain scale. Pain began 1 day ago. Neuro: Level of Consciousness is awake, alert, obeys commands, Oriented to person, place, time, situation, Reports headache. 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 - Social history:: Smoking status: Patient/guardian denies using tobacco. - Ebola Screening: : Patient negative for fever greater than or equal to 101.5 degrees Fahrenheit, and additional compatible Ebola Virus Disease symptoms Patient denies exposure to infectious person Patient denies travel to an Ebola-affected area in the 21 days before illness onset. Screenin:28 Abuse screen: Denies threats or abuse. Denies injuries from another. Nutritional ca1 screening: No deficits noted. Tuberculosis screening: No symptoms or risk factors identified. Fall Risk None identified. Assessment: 00:22 General: Appears in no apparent distress. comfortable, Behavior is calm, cooperative, ca1 appropriate for age. Pain: Complains of pain in chest and back and scalp and face Pain currently is 8 out of 10 on a pain scale. Pain began 1 day ago. Neuro: Level of Consciousness is awake, alert, obeys commands, Oriented to person, place, time, situation. Cardiovascular: Heart tones S1 S2 present Capillary refill < 3 seconds Patient's skin is warm and dry. Rhythm is sinus rhythm. Respiratory: Airway is patent Respiratory effort is even, unlabored, Respiratory pattern is regular, symmetrical, Breath sounds are clear bilaterally. GI: Abdomen is flat, non-distended, Bowel sounds present X 4 quads. Abd is soft and non tender X 4 quads. : No deficits noted. No signs and/or symptoms were reported regarding the genitourinary system. EENT: No deficits noted. No signs and/or symptoms were reported regarding the EENT system. Derm: Skin is intact, is healthy with good turgor, Skin is pink, warm \T\ dry. Musculoskeletal: 01:18 Reassessment: Patient appears in no apparent distress at this time. Patient and/or rv family updated on plan of care and expected duration. Pain level reassessed. Patient is alert, oriented x 3, equal unlabored respirations, skin warm/dry/pink. Vital Signs: 09/30 23:33 BP 103 / 73; Pulse 74; Resp 20; Temp 98.1(O); Pulse Ox 99% ; lt1 10/01 00:28 BP 113 / 69; Pulse 64; Resp 17 S; Pulse Ox 99% on R/A; ca1 00:42 BP 108 / 71; Pulse 64; Resp 18 S; Pulse Ox 98% on R/A; ca1 01:18 BP 104 / 66; Pulse 71; Resp 15; Pulse Ox 97% on R/A; rv 02:00 BP 106 / 73; Pulse 66; Resp 16; Temp 98; Pulse Ox 99% ; rv ED Course: 0602 23:05 Patient arrived in ED. es 23:07 Cecilio Hein MD is Private Physician. es 23:07 Mansoor Hein DO is Private Physician. es 23:33 EKG done, by ED staff. lt1 23:47 Ari Fuller NP is PHCP. pm1 23:47 Thompson Erickson MD is Attending Physician. pm1 06/03 00:00 Denaa Hussein, ALEX is Primary Nurse. ca1 00:08 No provider procedures requiring assistance completed. Inserted saline lock: 20 gauge ca1 in left antecubital area, using aseptic technique. Blood collected. 00:16 Triage completed. ca1 00:20 Arm band placed on right wrist. ca1 00:21 X-ray completed. Portable x-ray completed in exam room. Patient tolerated procedure kw well. 00:23 XRAY Chest (1 view) In Process Unspecified. EDMS 00:28 Patient has correct armband on for positive identification. Placed in gown. Bed in low ca1 position. Call light in reach. Side rails up X 1. clinical research monitor on. Pulse ox on. NIBP on. Warm blanket given. 02:40 IV discontinued, intact, bleeding controlled, No redness/swelling at site. Pressure rv dressing applied. Administered Medications: 00:58 Drug: NS 0.9% 1000 ml Route: IV; Rate: 1000 ml; Site: left antecubital; ca1 02:43 Follow up: IV Status: Completed infusion rv 00:59 Drug: fentaNYL (PF) 25 mcg Route: IVP; Site: left antecubital; ca1 02:43 Follow up: Response: Pain is decreased rv Outcome: 02:00 Discharge ordered by . pm1 02:40 Discharged to home ambulatory. rv 02:40 Condition: good 02:40 Discharge instructions given to patient, Instructed on discharge instructions, follow up and referral plans. medication usage, Demonstrated understanding of instructions, follow-up care, medications, Prescriptions given X 1. 02:42 Patient left the ED. rv Signatures: Dispatcher [employer] EDMS Danika Hall Kimberlee Ari Fuller NP CALCULATING MACHINE MECHANIC pm1 El Nagy RN RN rv Acob, Deana, RN RN ca1 Perdue, Bety lt1
--- NOTE | 2018-10-01 02:01 | EDPHYS ---
Physician Documentation [facility] Name: Tiffany Madrid Age: 23 yrs Sex: Female : 1995 Arrival Date: 09/30/2018 Time: 23:05 Bed 25 Private MD: Angel Luis [facility] ED Physician Thompson Erickson HPI: 10/01 00:05 This 23 yrs old Female presents to ER via Wheelchair with complaints of Chest pm1 pain. 00:05 The patient or guardian reports chest pain that is located primarily in the chest pm1 diffusely. The pain does not radiate. Associated signs and symptoms: Pertinent positives: headache, shortness of breath, vomiting, Back pain, Pertinent negatives: abdominal pain, cough, dizziness, nausea, palpitations, vomiting. The chest pain is described as sharp. Duration: The patient or guardian reports a single episode. Modifying factors: The symptoms are alleviated by nothing. the symptoms are aggravated by nothing. Severity of pain: in the emergency department the pain is unchanged. The patient has experienced similar episodes in the past, several times. The patient has not recently seen a physician. 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 - Social history:: Smoking status: Patient/guardian denies using tobacco. - Ebola Screening: : Patient negative for fever greater than or equal to 101.5 degrees Fahrenheit, and additional compatible Ebola Virus Disease symptoms Patient denies exposure to infectious person Patient denies travel to an Ebola-affected area in the 21 days before illness onset. ROS: 00:05 Constitutional: Negative for fever, chills, and weight loss, Eyes: Negative for injury, pm1 pain, redness, and discharge, ENT: Negative for injury, pain, and discharge, Neck: Negative for injury, pain, and swelling. 00:05 Abdomen/GI: Negative for abdominal pain, nausea, vomiting, diarrhea, and constipation, : Negative for injury, bleeding, discharge, and swelling. 00:05 MS/Extremity: Negative for injury and deformity, Skin: Negative for injury, rash, and discoloration, Neuro: Negative for headache, weakness, numbness, tingling, and seizure. 00:05 Cardiovascular: Positive for chest pain, Negative for edema, orthopnea, palpitations. 00:05 Respiratory: Positive for shortness of breath, Negative for cough, sputum production, wheezing. 00:05 Back: Positive for of the diffusely. Exam: 00:05 Constitutional: This is a well developed, well nourished patient who is awake, alert, pm1 and in no acute distress. Head/Face: Normocephalic, atraumatic. Eyes: Pupils equal round and reactive to light, extra-ocular motions intact. Lids and lashes normal. Conjunctiva and sclera are non-icteric and not injected. Cornea within normal limits. Periorbital areas with no swelling, redness, or edema. ENT: Nares patent. No nasal discharge, no septal abnormalities noted. Tympanic membranes are normal and external auditory canals are clear. Oropharynx with no redness, swelling, or masses, exudates, or evidence of obstruction, uvula midline. Mucous membranes moist. Neck: Trachea midline, no thyromegaly or masses palpated, and no cervical lymphadenopathy. Supple, full range of motion without nuchal rigidity, or vertebral point tenderness. No Meningismus. Cardiovascular: Regular rate and rhythm with a normal S1 and S2. No gallops, murmurs, or rubs. Normal PMI, no JVD. No pulse deficits. Respiratory: Lungs have equal breath sounds bilaterally, clear to auscultation and percussion. No rales, rhonchi or wheezes noted. No increased work of breathing, no retractions or nasal flaring. Abdomen/GI: Soft, non-tender, with normal bowel sounds. No distension or tympany. No guarding or rebound. No evidence of tenderness throughout. Back: No spinal tenderness. No costovertebral tenderness. Full range of motion. 00:05 Skin: Warm, dry with normal turgor. Normal color with no rashes, no lesions, and no evidence of cellulitis. MS/ Extremity: Pulses equal, no cyanosis. Neurovascular intact. Full, normal range of motion. 00:05 Chest/axilla: Inspection: normal, Palpation: crepitus, is not appreciated, tenderness, that is mild, of the mid-sternal area, that totally reproduces the patient's complaints. 00:05 Neuro: Orientation: is normal, Motor: is normal, moves all fours. Vital Signs: 09/30 23:33 BP 103 / 73; Pulse 74; Resp 20; Temp 98.1(O); Pulse Ox 99% ; lt1 10/01 00:28 BP 113 / 69; Pulse 64; Resp 17 S; Pulse Ox 99% on R/A; ca1 00:42 BP 108 / 71; Pulse 64; Resp 18 S; Pulse Ox 98% on R/A; ca1 01:18 BP 104 / 66; Pulse 71; Resp 15; Pulse Ox 97% on R/A; rv 02:00 BP 106 / 73; Pulse 66; Resp 16; Temp 98; Pulse Ox 99% ; rv MDM: 09/30 23:49 Patient medically screened. pm1 10/01 01:59 Data reviewed: vital signs. Data interpreted: Pulse oximetry: on room air is 97 %. pm1 Interpretation: normal. Counseling: I had a detailed discussion with the patient and/or guardian regarding: the historical points, exam findings, and any diagnostic results supporting the discharge/admit diagnosis, lab results, radiology results, the need for outpatient follow up, to return to the emergency department if symptoms worsen or persist or if there are any questions or concerns that arise at home. 10/01 00:04 Order name: Basic Metabolic Panel; Complete Time: 01:08 pm1 10/01 00:04 Order name: CBC with Diff; Complete Time: 00:46 pm1 10/01 00:04 Order name: LFT's; Complete Time: 01:08 pm1 10/01 00:04 Order name: Magnesium; Complete Time: 01:08 pm1 10/01 00:04 Order name: PT-INR; Complete Time: 00:46 pm1 10/01 00:04 Order name: Troponin (emerg Dept Use Only); Complete Time: 01:08 pm1 10/01 00:04 Order name: XRAY Chest (1 view) pm1 10/01 00:04 Order name: EKG; Complete Time: 00:08 pm10/01 00:04 Order name: Cardiac monitoring; Complete Time: 00:27 pm10/01 00:04 Order name: UDS; Complete Time: 01:08 pm10/01 00:45 Order name: Urine Dipstick--Ancillary (enter results); Complete Time: 01:58 mw2 10/01 00:45 Order name: Urine --Ancillary (enter results); Complete Time: 01:58 mw2 10/01 00:04 Order name: EKG - Nurse/Tech; Complete Time: 00:27 pm 06/ 00:04 Order name: IV Saline Lock; Complete Time: 00:27 pm10/01 00:04 Order name: Labs collected and sent; Complete Time: 00:27 pm10/01 00:04 Order name: O2 Per Protocol; Complete Time: 00:28 pm10/01 00:04 Order name: O2 Sat Monitoring; Complete Time: 00:28 pm03 00:04 Order name: Urine Dipstick-Ancillary (obtain specimen); Complete Time: 00:36 pm03 00:04 Order name: Urine Test (obtain specimen); Complete Time: 00:36 pm1 Administered Medications: 00:58 Drug: NS 0.9% 1000 ml Route: IV; Rate: 1000 ml; Site: left antecubital; ca1 02:43 Follow up: IV Status: Completed infusion rv 00:59 Drug: fentaNYL (PF) 25 mcg Route: IVP; Site: left antecubital; ca1 02:43 Follow up: Response: Pain is decreased rv Disposition: 02:50 Co-signature as Attending Physician, Thompson Erickson MD. [email or web address] Disposition: 10/01/18 02:00 Discharged to Home. Impression: Vomiting, Cannabis abuse, Chest pain, unspecified. - Condition is Stable. - Discharge Instructions: Nonspecific Chest Pain, Cannabis Use Disorder, Nausea and Vomiting, Adult. - Prescriptions for Skelaxin 800 mg Oral Tablet - take 1 tablet by ORAL route every 8 hours As needed; 30 tablet. - Medication Reconciliation Form, Thank You Letter, Antibiotic Education, Prescription Opioid Use, Work release form form. - Follow up: Emergency Department; When: As needed; Reason: Worsening of condition. Follow up: Private Physician; When: 2 - 3 days; Reason: Recheck today's complaints, Continuance of care, Re-evaluation by your physician. - Problem is new. - Symptoms have improved. Signatures: Dispatcher [employer] EDMS Thompson Erickson MD MD pkl Marinas, Patrick, TAX ECONOMIST TAX ECONOMIST pm1 El Nagy, ALEX RN rv Jovita, Deana RN RN ca1 Corrections: (The following items were deleted from the chart) 02:00 02:00 10/01/2018 02:00 Discharged to Home. Impression: Vomiting; Cannabis abuse. pm1 Condition is Stable. Forms are Medication Reconciliation Form, Thank You Letter, Antibiotic Education, Prescription Opioid Use. Follow up: Emergency Department; When: As needed; Reason: Worsening of condition. Follow up: Private Physician; When: 2 - 3 days; Reason: Recheck today's complaints, Continuance of care, Re-evaluation by your physician. Problem is new. Symptoms have improved. pm1 02:42 02:00 10/01/2018 02:00 Discharged to Home. Impression: Vomiting; Cannabis abuse; Chest rv pain, unspecified. Condition is Stable. Forms are Medication Reconciliation Form, Thank You Letter, Antibiotic Education, Prescription Opioid Use. Follow up: Emergency Department; When: As needed; Reason: Worsening of condition. Follow up: Private Physician; When: 2 - 3 days; Reason: Recheck today's complaints, Continuance of care, Re-evaluation by your physician. Problem is new. Symptoms have improved. pm1
--- NOTE | 2018-10-01 06:27 | EKG ---
Test Date: 2018-09-30 Test Time: 23:30:17 Transporter Radiology: IVÁN MEASUREMENT RESULTS: Intervals: Rate: 62 WY: 136 QRSD: 92 QT: 410 QTc: 416 [place]: P: 18 WY: 136 QRS: 13 T: 46 INTERPRETIVE STATEMENTS: Normal sinus rhythm Low voltage QRS Borderline ECG Compared to ECG 08/26/2018 01:50:44 Low QRS voltage now present Sinus arrhythmia no longer present ST (T wave) deviation no longer present Possible ischemia no longer present Electronically Signed On 10-01-18 06:26:35 CDT by Fernie Maguire
--- NOTE | 2018-10-01 08:36 | RAD REPORT ---
EXAM DESCRIPTION: RAD - Chest Single View - 10/01/2018 12:24 am CLINICAL HISTORY: CHEST PAIN Chest pain. COMPARISON: Chest Single View dated 08/26/2018; Chest Pa And Lat (2 Views) dated 07/18/2018; Chest Sin gle View dated 06/13/2018; CHEST PA AND LAT 2 VIEW dated 12/12/2014 FINDINGS: Portable technique limits examination quality. The lungs are grossly clear. The heart is normal in size. No displaced fractures. IMPRESSION: No acute intrathoracic process suspected.
== END 2018-10-01 02:42 | disposition home or self-care (01) ==
LOC: ER 23:03
DX: F12.10 Cannabis abuse, uncomplicated (principal); R11.10 Vomiting, unspecified; F41.9 Anxiety disorder, unspecified; M30.1 Polyarteritis with lung involvement [Churg-Strauss]; Z88.6 Allergy status to analgesic agent; Z88.8 Allergy status to other drugs, medicaments and biological substances
CPT/HCPCS: 36415; 71045; 80048; 80076; 80307; 81003; 81025; 83735; 84484; 85025; 85610; 93005; 96361; 96374; 99285; J3010; J7030

== ENCOUNTER 2018-10-25 22:16 | Emergency (ER) | payer OTHER, BC ==
[2018-10-25 23:35] LABS: Absolute Lymphocytes (CBC) 2.1 K/uL (0.7-4.9); Eosinophils % 26.4 % (0-4.4); Hematocrit 43.6 % (36.0-45.0); Lymphocytes % 16.6 % (15.3-44.8); MPV 10.3 fL (7.6-11.3); RBC Red Blood Cell Count 4.77 M/uL (3.86-4.86)
[2018-10-25] MEDS ORDERED: NA CHLORIDE 0.9% 1,000 ML ONE (23:35)
[2018-10-25 23:40] LABS: Protime INR 1.05
[2018-10-25] MEDS ORDERED: FENTANYL CITR 100 MCG/2 ML ONE (23:49)
[2018-10-26 00:03] LABS: ALT/SGPT 28 U/L (12-78); AST/SGOT 17 U/L (15-37); Alkaline Phosphatase 81 U/L (45-117); BUN Blood Urea Nitrogen 21 mg/dL (7-18); Bicarbonate 25 mmol/L (21-32); Bilirubin Direct 0.1 mg/dL (0-0.2); Bilirubin Total 0.5 mg/dL (0.2-1.0); Glucose Level 80 mg/dL (74-106); Lipase 160 U/L (73-393); Magnesium 2.2 mg/dL (1.8-2.4); NT PRO-BNP 379 pg/mL (<125); Potassium 3.7 mmol/L (3.5-5.1); Protein, Total 7.6 g/dL (6.4-8.2); Sodium Level 141 mmol/L (136-145); Troponin (Emerg Dept Use Only) < 0.02 ng/mL (0.0-0.045)
--- NOTE | 2018-10-26 00:16 | RAD REPORT ---
EXAM DESCRIPTION: Mandi Single View10/26/2018 12:11 am CLINICAL HISTORY: Cough COMPARISON: October 01, 2018 FINDINGS: The lungs appear clear of acute infiltrate. The heart is normal size IMPRESSION: No acute abnormalities displayed
[2018-10-26] MEDS ORDERED: METHYLPREDNISOLONE 125 MG INJ ONE (00:22)
[2018-10-26] MEDS ORDERED: IPRATROPIUM BROM 0.5MG/2.5ML ONE (00:23)
[2018-10-26] MEDS ORDERED: predniSONE 20 MG TAB ONE (00:23)
[2018-10-26] MEDS ORDERED: LEVALBUTEROL 1.25 MG/3 ML NEB ONE (00:23)
[2018-10-26] MEDS ORDERED: ASPIRIN 81 MG CHEWABLE TABLET ONE (01:09)
[2018-10-26 01:45] LABS: Blood Morphology Comment NOT SEEN (NOT SEEN); Platelet Estimate ADEQ
[2018-10-26 01:46] LABS: Urine Blood NEGATIVE (NEG); Urine Glucose NEGATIVE (NEG); Urine Protein NEGATIVE (NEG); Urine Specific Gravity 1.025 (1.005-1.030)
--- NOTE | 2018-10-26 01:51 | ER ---
Nurse's Notes [facility] Name: Tiffany Madrid Age: 23 yrs Sex: Female : 1995 Arrival Date: 10/25/2018 Time: 22:18 Bed 17 Private MD: Mansoor Hein Diagnosis: Dyspnea;Dizziness and giddiness;Lupus erythematosus Presentation: 10/25 22:34 Presenting complaint: Patient states: Body aches and shortness of breath x 2 days, tl2 increased usage of inhaler. cough, congestion, and sore throat. Denies fever. Transition of care: patient was not received from another setting of care. Onset of symptoms was October 23, 2018. Risk Assessment: Do you want to hurt yourself or someone else? Patient reports no desire to harm self or others. Initial Sepsis Screen: Does the patient meet any 2 criteria? No. Patient's initial sepsis screen is negative. Does the patient have a suspected source of infection? No. Patient's initial sepsis screen is negative. Care prior to arrival: None. 22:34 Method Of Arrival: Ambulatory tl2 22:34 Acuity: KELSEY 3 tl2 Triage Assessment: 22:36 Respiratory: Reports shortness of breath cough that is Onset: The symptoms/episode tl2 began/occurred yesterday, the patient has mild shortness of breath. 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 - Social history:: Smoking status: Patient uses tobacco products, Vape. - Ebola Screening: : No symptoms or risks identified at this time. - Family history:: not pertinent. Screenin:37 Abuse screen: Denies threats or abuse. Nutritional screening: No deficits noted. tl2 Tuberculosis screening: No symptoms or risk factors identified. Fall Risk None identified. Assessment: 22:38 Respiratory: Respiratory effort is. tl2 23:00 General: Appears in no apparent distress. uncomfortable, Behavior is calm, cooperative, jb4 appropriate for age. Pain: Complains of pain in left hip, right hip, right leg and left leg Pain does not radiate. Pain currently is 9 out of 10 on a pain scale. Quality of pain is described as aching. Neuro: Level of Consciousness is awake, alert, obeys commands, Oriented to person, place, time, situation. Cardiovascular: Patient's skin is warm and dry. Respiratory: Airway is patent Respiratory effort is even, unlabored, Respiratory pattern is regular, symmetrical, Breath sounds are clear bilaterally. Breath sounds are diminished bilaterally. GI: Reports nausea. : No signs and/or symptoms were reported regarding the genitourinary system. EENT: No signs and/or symptoms were reported regarding the EENT system. Derm: Skin is intact, Skin is pink, warm \T\ dry. Musculoskeletal: Circulation, motion, and sensation intact. 23:10 Cardiovascular: Rhythm is irregular. jb4 23:10 Reassessment: EKG taken to provider. jb4 23:57 Reassessment: Patient appears in no apparent distress at this time. Patient and/or jb4 family updated on plan of care and expected duration. Pain level reassessed. Patient is alert, oriented x 3, equal unlabored respirations, skin warm/dry/pink. Patient states feeling better. 10/26 00:58 Reassessment: Patient appears in no apparent distress at this time. Patient and/or jb4 family updated on plan of care and expected duration. Pain level reassessed. Patient is alert, oriented x 3, equal unlabored respirations, skin warm/dry/pink. Patient states feeling better. Respiratory: Breath sounds are clear bilaterally. 01:30 Reassessment: Pt reports an increase in back pain, provider notified, no new orders at jb4 this time. 01:58 Reassessment: Patient appears in no apparent distress at this time. Patient and/or jb4 family updated on plan of care and expected duration. Pain level reassessed. Patient is alert, oriented x 3, equal unlabored respirations, skin warm/dry/pink. 02:38 Reassessment: Patient appears in no apparent distress at this time. Patient and/or jb4 family updated on plan of care and expected duration. Pain level reassessed. Patient is alert, oriented x 3, equal unlabored respirations, skin warm/dry/pink. PT leaving ED ambulatory with significant other, steady gait, verbalized understanding of d/c and follow up instructions, denies questions or concerns. Patient states feeling better. Vital Signs: 10/25 22:36 BP 101 / 67; Pulse 81; Resp 18; Temp 97.9(O); Pulse Ox 95% on R/A; Weight 102.06 kg; tl2 Height 5 ft. 11 in. (180.34 cm); Pain 5/10; 23:00 BP 99 / 67; Pulse 74; Resp 18; Pulse Ox 98% on R/A; jb4 10/26 00:00 BP 106 / 65; Pulse 73; Resp 16; Pulse Ox 100% on R/A; jb4 01:45 BP 100 / 63; Pulse 77; Resp 20; Pulse Ox 96% on R/A; jb4 10/25 22:36 Body Mass Index 31.38 (102.06 kg, 180.34 cm) tl2 ED Course: 10/25 22:18 Patient arrived in ED. mr 22:18 Cecilio Hein MD is Private Physician. mr 22:19 Mansoor Hein DO is Private Physician. mr 22:27 Demarco Valentine MD is Attending Physician. saman 22:35 Triage completed. tl2 22:36 Arm band placed on right wrist. tl2 23:00 Patient has correct armband on for positive identification. Placed in gown. Bed in low jb4 position. Call light in reach. Side rails up X 1. 23:08 Karthik Beaulieu, RN is Primary Nurse. jb4 23:42 EKG done, by ED staff, reviewed by Demarco Valentine MD Flu and/or RSV swab sent to lab. ag4 Missed attempt(s): 22 gauge in right antecubital area. Inserted saline lock: 22 gauge in left antecubital area, using aseptic technique. Blood collected. 10/26 00:15 XRAY Chest (1 view) In Process Unspecified. EDMS 01:50 Mansoor Hein DO is Referral Physician. saman 01:50 Fernie Maguire MD is Referral Physician. saman 02:39 No provider procedures requiring assistance completed. IV discontinued, intact, jb4 bleeding controlled, No redness/swelling at site. Administered Medications: 10/25 23:30 Drug: NS 0.9% 1000 ml Route: IV; Rate: 1 bolus; Site: left antecubital; jb4 23:40 Drug: fentaNYL (PF) 25 mcg Route: IVP; Site: left antecubital; jb4 10/26 00:20 Follow up: Response: No adverse reaction; Pain is decreased jb4 10/25 23:50 Drug: fentaNYL (PF) 25 mcg Route: IVP; Site: left antecubital; jb4 10/26 00:20 Follow up: Response: No adverse reaction; Pain is decreased jb4 00:10 Drug: SOLU-Medrol 125 mg Route: IVP; Site: left antecubital; jb4 01:51 Follow up: Response: No adverse reaction jb4 00:10 Drug: Xopenex 1.25 mg Route: Inhalation; jb4 00:25 Follow up: Response: No adverse reaction; Marked relief of symptoms jb4 00:10 Drug: AtroVENT Aerosol 0.5 mg Route: Inhalation; jb4 00:25 Follow up: Response: No adverse reaction jb4 00:15 Drug: predniSONE 20 mg Route: PO; jb4 01:51 Follow up: Response: No adverse reaction jb4 00:58 Drug: Aspirin 162 mg Route: PO; jb4 01:49 Follow up: Response: No adverse reaction jb4 Outcome: 01:50 Discharge ordered by . saman 02:40 Discharged to home ambulatory, with significant other. jb4 02:40 Condition: stable 02:40 Discharge instructions given to patient, significant other, Instructed on discharge instructions, follow up and referral plans. medication usage, Demonstrated understanding of instructions, follow-up care, medications, Prescriptions given X 2. 02:40 Patient left the ED. jb4 Signatures: Dispatcher [employer] EDMS Demarco Valentine MD MD cha Rivera, Lala Jauregui RN RN tl2 Karthik Beaulieu RN RN jb4 Anselmo Hayes ag4 Corrections: (The following items were deleted from the chart) 00:00 10/25 23:50 fentaNYL (PF) 25 mcg IVP in right antecubital jb4 jb4
--- NOTE | 2018-10-26 01:51 | EDPHYS ---
Physician Documentation [facility] Name: Tiffany Madrid Age: 23 yrs Sex: Female : 1995 Arrival Date: 10/25/2018 Time: 22:18 Bed 17 Private MD: Angel Luis [facility] ED Physician Demarco Valentine HPI: 10/25 23:14 This 23 yrs old Female presents to ER via Ambulatory with complaints of saman Shortness Of Breath, Dizziness. 23:14 The patient has shortness of breath at rest, with light activity. Onset: The saman symptoms/episode began/occurred 2 day(s) ago. Duration: The symptoms are intermittent, with no pattern. The patient's shortness of breath has no apparent modifying factors. Associated signs and symptoms: The patient has no apparent associated signs or symptoms. Severity of symptoms: At their worst the symptoms were mild in the emergency department the symptoms are unchanged. The patient has not experienced similar symptoms in the past. PERMANENT WAVER: 22:36 LMP 10/19/2018 tl2 Historical: - Allergies: 22:36 Lorazepam; tl2 22:36 meloxicam; tl2 22:36 Phenergan; tl2 22:36 Zofran; tl2 - Home Meds: 22:36 Azathioprine Oral [Active]; Metoprolol Tartrate 150 mg Oral 1 tab 2 times per day tl2 [Active]; albuterol sulfate inhalation Inhl [Active]; - PMHx: 22:36 Anxiety; Asthma; Churg-Hudson Syndrome; Lupus; tl2 - PSHx: 22:36 Ear Tubes; tl2 - Immunization history:: Adult Immunizations up to date. - Social history:: Smoking status: Patient uses tobacco products, Vape. - Ebola Screening: : No symptoms or risks identified at this time. - Family history:: not pertinent. ROS: 23:14 Constitutional: Negative for fever, chills, and weight loss, Eyes: Negative for injury, saman pain, redness, and discharge, ENT: Negative for injury, pain, and discharge, Neck: Negative for injury, pain, and swelling, Cardiovascular: Negative for chest pain, palpitations, and edema, Abdomen/GI: Negative for abdominal pain, nausea, vomiting, diarrhea, and constipation, Back: Negative for injury and pain, : Negative for injury, bleeding, discharge, and swelling, MS/Extremity: Negative for injury and deformity, Skin: Negative for injury, rash, and discoloration, Neuro: Negative for headache, weakness, numbness, tingling, and seizure, Psych: Negative for depression, anxiety, suicide ideation, homicidal ideation, and hallucinations, Allergy/Immunology: Negative for hives, rash, and allergies, Endocrine: Negative for neck swelling, polydipsia, polyuria, polyphagia, and marked weight changes, Hematologic/Lymphatic: Negative for swollen nodes, abnormal bleeding, and unusual bruising. 23:14 Respiratory: Positive for cough, shortness of breath. Exam: 23:14 Constitutional: This is a well developed, well nourished patient who is awake, alert, saman and in no acute distress. Head/Face: Normocephalic, atraumatic. Eyes: Pupils equal round and reactive to light, extra-ocular motions intact. Lids and lashes normal. Conjunctiva and sclera are non-icteric and not injected. Cornea within normal limits. Periorbital areas with no swelling, redness, or edema. ENT: Nares patent. No nasal discharge, no septal abnormalities noted. Tympanic membranes are normal and external auditory canals are clear. Oropharynx with no redness, swelling, or masses, exudates, or evidence of obstruction, uvula midline. Mucous membranes moist. Neck: Trachea midline, no thyromegaly or masses palpated, and no cervical lymphadenopathy. Supple, full range of motion without nuchal rigidity, or vertebral point tenderness. No Meningismus. Chest/axilla: Normal chest wall appearance and motion. Nontender with no deformity. No lesions are appreciated. Cardiovascular: Regular rate and rhythm with a normal S1 and S2. No gallops, murmurs, or rubs. Normal PMI, no JVD. No pulse deficits. Respiratory: Lungs have equal breath sounds bilaterally, clear to auscultation and percussion. No rales, rhonchi or wheezes noted. No increased work of breathing, no retractions or nasal flaring. Abdomen/GI: Soft, non-tender, with normal bowel sounds. No distension or tympany. No guarding or rebound. No evidence of tenderness throughout. Back: No spinal tenderness. No costovertebral tenderness. Full range of motion. Female : Normal external genitalia. Skin: Warm, dry with normal turgor. Normal color with no rashes, no lesions, and no evidence of cellulitis. MS/ Extremity: Pulses equal, no cyanosis. Neurovascular intact. Full, normal range of motion. Neuro: Awake and alert, GCS 15, oriented to person, place, time, and situation. Cranial nerves II-XII grossly intact. Motor strength 5/5 in all extremities. Sensory grossly intact. Cerebellar exam normal. Normal gait. Psych: Awake, alert, with orientation to person, place and time. Behavior, mood, and affect are within normal limits. 23:30 Musculoskeletal/extremity: DVT Exam: No signs of deep vein thrombosis. no pain, no saman swelling, no tenderness, negative Homans' sign noted on exam, no appreciated bluish discoloration, no erythema, no increased warmth. Vital Signs: 22:36 BP 101 / 67; Pulse 81; Resp 18; Temp 97.9(O); Pulse Ox 95% on R/A; Weight 102.06 kg; tl2 Height 5 ft. 11 in. (180.34 cm); Pain 5/10; 23:00 BP 99 / 67; Pulse 74; Resp 18; Pulse Ox 98% on R/A; jb4 10/26 00:00 BP 106 / 65; Pulse 73; Resp 16; Pulse Ox 100% on R/A; jb4 01:45 BP 100 / 63; Pulse 77; Resp 20; Pulse Ox 96% on R/A; [facility] 10/25 22:36 Body Mass Index 31.38 (102.06 kg, 180.34 cm) tl2 MDM: 10/25 22:27 Patient medically screened. [facility] 23:18 Data reviewed: vital signs, nurses notes, lab test result(s), EKG, radiologic studies, [facility] CT scan, plain films. 10/25 23:13 Order name: Basic Metabolic Panel [facility] 10/25 23:13 Order name: CBC with Diff [facility] 10/25 23:13 Order name: LFT's [facility] 10/25 23:13 Order name: Magnesium [facility] 10/25 23:13 Order name: NT PRO-BNP; Complete Time: 00:08 [facility] 10/25 23:13 Order name: PT-INR; Complete Time: 23:55 [facility] 10/25 23:13 Order name: Troponin (emerg Dept Use Only); Complete Time: 00:08 [facility] 10/25 23:13 Order name: Lipase; Complete Time: 00:08 [facility] 10/25 23:13 Order name: Urine Culture [facility] 10/25 23:13 Order name: D-Dimer; Complete Time: 23:55 [facility] 10/25 23:14 Order name: Basic Metabolic Panel; Complete Time: 00:08 [facility] 10/25 23:14 Order name: CBC with Automated Diff; Complete Time: 01:49 [facility] 10/25 23:14 Order name: Liver (Hepatic) Function; Complete Time: 00:08 [facility] 10/25 23:14 Order name: Magnesium; Complete Time: 00:08 [facility] 10/25 23:13 Order name: XRAY Chest (1 view); Complete Time: 00:25 [facility] 10/25 23:30 Order name: Sed Rate [facility] 10/25 23:30 Order name: Sedimentation Rate, Westergren; Complete Time: 00:25 [facility] 10/25 23:48 Order name: Manual Differential; Complete Time: 01:49 [facility] 10/26 00:08 Order name: Flu [facility] 10/26 00:29 Order name: Troponin (emerg Dept Use Only): 100 am; Complete Time: 02:00 [facility] 10/26 01:25 Order name: Urine Dipstick--Ancillary (enter results); Complete Time: 01:49 [facility] 10/26 01:25 Order name: Urine --Ancillary (enter results); Complete Time: 01:49 [facility] 10/26 01:29 Order name: UDS; Complete Time: 02:00 [facility] 10/25 23:13 Order name: EKG; Complete Time: 23:15 [facility] 10/25 23:13 Order name: Cardiac monitoring; Complete Time: 23:41 [facility] 10/25 23:13 Order name: EKG - Nurse/Tech; Complete Time: 23:41 [facility] 10/25 23:13 Order name: IV Saline Lock; Complete Time: 23:27 [facility] 10/25 23:13 Order name: Labs collected and sent; Complete Time: 23:27 [facility] 10/25 23:13 Order name: O2 Per Protocol; Complete Time: 23:27 [facility] 10/25 23:13 Order name: O2 Sat Monitoring; Complete Time: 23:27 [facility] 10/25 23:13 Order name: Urine Dipstick-Ancillary (obtain specimen); Complete Time: 01:28 [facility] 10/25 23:30 Order name: Urine Test (obtain specimen); Complete Time: 02:37 [facility] 10/26 00:29 Order name: EKG; Complete Time: 00:30 [facility] 10/26 00:29 Order name: EKG - Nurse/Tech; Complete Time: 01:05 [facility] Administered Medications: 23:30 Drug: NS 0.9% 1000 ml Route: IV; Rate: 1 bolus; Site: left antecubital; [facility] 23:40 Drug: fentaNYL (PF) 25 mcg Route: IVP; Site: left antecubital; jb4 10/26 00:20 Follow up: Response: No adverse reaction; Pain is decreased [facility] 10/25 23:50 Drug: fentaNYL (PF) 25 mcg Route: IVP; Site: left antecubital; 4 10/26 00:20 Follow up: Response: No adverse reaction; Pain is decreased jb4 00:10 Drug: SOLU-Medrol 125 mg Route: IVP; Site: left antecubital; jb4 01:51 Follow up: Response: No adverse reaction jb4 00:10 Drug: Xopenex 1.25 mg Route: Inhalation; jb4 00:25 Follow up: Response: No adverse reaction; Marked relief of symptoms jb4 00:10 Drug: AtroVENT Aerosol 0.5 mg Route: Inhalation; jb4 00:25 Follow up: Response: No adverse reaction jb4 00:15 Drug: predniSONE 20 mg Route: PO; jb4 01:51 Follow up: Response: No adverse reaction jb4 00:58 Drug: Aspirin 162 mg Route: PO; jb4 01:49 Follow up: Response: No adverse reaction [facility] Disposition: 10/26/18 01:50 Discharged to Home. Impression: Dyspnea, Dizziness and giddiness, Lupus erythematosus. - Condition is Stable. - Discharge Instructions: Back Pain, Adult, Dizziness, Systemic Lupus Erythematosus, Adult, Back Pain, Adult, [id number], Aspirin and Your Heart, Dizziness, Uobx-uk-[id number]. - Prescriptions for Tylenol- Codeine #3 300-30 mg Oral Tablet - take 2 tablets by ORAL route every 6 hours As needed; 20 tablet. Medrol (Romie) 4 mg Oral Tablets, Dose Pack - take 1 tablet by ORAL route as directed - follow package instructions; 1 packet. - Medication Reconciliation Form, Thank You Letter, Antibiotic Education, Prescription Opioid Use, Work release form form. - Follow up: Mansoor Hein; When: 1 - 2 days; Reason: Recheck today's complaints, Continuance of care, Re-evaluation by your physician. Follow up: Fernie Maguire; When: 2 - 3 days; Reason: Recheck today's complaints, Re-evaluation by your physician. - Problem is new. - Symptoms have improved. Signatures: Dispatcher [employer] EDDE Demarco Valentine MD MD cha Knox, Taylor, RN RN tl2 Karthik Beaulieu, ALEX RN jb4 Corrections: (The following items were deleted from the chart) 02:40 01:50 10/26/2018 01:50 Discharged to Home. Impression: Dyspnea; Dizziness and jb4 giddiness; Lupus erythematosus. Condition is Stable. Discharge Instructions: Back Pain, Adult, Dizziness, Systemic Lupus Erythematosus, Adult, Back Pain, Adult, Cyoh-sr-Dffw, Dizziness, Lxde-ei-[id number], Aspirin and Your Heart. Prescriptions for Tylenol-Codeine #3 300-30 mg Oral Tablet - take 2 tablets by ORAL route every 6 hours As needed; 20 tablet, Medrol (Romie) 4 mg Oral Tablets, Dose Pack - take 1 tablet by ORAL route as directed - follow package instructions; 1 packet. and Forms are Medication Reconciliation Form, Thank You Letter, Antibiotic Education, Prescription Opioid Use. Follow up: Mansoor Hein; When: 1 - 2 days; Reason: Recheck today's complaints, Continuance of care, Re-evaluation by your physician. Follow up: Fernie Maguire; When: 2 - 3 days; Reason: Recheck today's complaints, Re-evaluation by your physician. Problem is new. Symptoms have improved. saman
[2018-10-26 01:58] LABS: Barbiturates NEGATIVE (NEGATIVE); Benzodiazepines NEGATIVE (NEGATIVE); Cocaine NEGATIVE (NEGATIVE); METHAMPHETAM NEGATIVE (NEGATIVE); Methadone NEGATIVE (NEGATIVE); Opiates NEGATIVE (NEGATIVE); Phencyclidine NEGATIVE (NEGATIVE); THC Cannibis NEGATIVE (NEGATIVE)
--- NOTE | 2018-10-26 08:25 | EKG ---
Test Date: 2018-10-26 Test Time: 01:02:05 Aws Developer: [email or web address] MEASUREMENT RESULTS: Intervals: Rate: 78 OK: 144 QRSD: 86 QT: 424 QTc: 483 [place]: P: 54 OK: 144 QRS: 36 T: 17 INTERPRETIVE STATEMENTS: Normal sinus rhythm Low voltage QRS Nonspecific ST and T wave abnormality Prolonged QT Abnormal ECG Compared to ECG 10/25/2018 23:34:36 Prolonged QT interval now present Sinus arrhythmia no longer present ST (T wave) deviation still present Electronically Signed On 10-26-18 08:24:44 CDT by Anderson Harrison
--- NOTE | 2018-10-26 08:26 | EKG ---
Test Date: 2018-10-25 Test Time: 23:34:36 Thoracic Medicine Specialist: [email or web address] MEASUREMENT RESULTS: Intervals: Rate: 73 KS: 128 QRSD: 82 QT: 406 QTc: 447 [place]: P: 21 KS: 128 QRS: 44 T: 51 INTERPRETIVE STATEMENTS: Normal sinus rhythm with sinus arrhythmia Low voltage QRS Nonspecific ST and T wave abnormality Abnormal ECG Compared to ECG 09/30/2018 23:30:17 ST (T wave) deviation now present Electronically Signed On 10-26-18 08:24:48 CDT by Anderson Harrison
== END 2018-10-26 02:40 | disposition home or self-care (01) ==
LOC: ER 22:16
DX: R42 Dizziness and giddiness (principal); L93.0 Discoid lupus erythematosus; F41.9 Anxiety disorder, unspecified; Z72.0 Tobacco use; Z88.6 Allergy status to analgesic agent; Z88.8 Allergy status to other drugs, medicaments and biological substances
CPT/HCPCS: 36415; 71045; 80048; 80076; 80307; 81003; 81025; 83690; 83735; 83880; 84484; 85025; 85379; 85610; 85652; 87086; 87088; 87804; 93005; 96374; 96375; 99284; J2930; J3010; J7030; J7512

== ENCOUNTER 2018-11-12 23:09 | Emergency (ER) | payer OTHER, BC ==
[2018-11-12] MEDS ORDERED: KETOROLAC 30 MG/ML INJ ONE (23:51)
--- NOTE | 2018-11-13 | ER ---
Nurse's Notes [facility] Name: Tiffany Madrid Age: 23 yrs Sex: Female : 1995 Arrival Date: 11/12/2018 Time: 23:14 Bed 17 Private MD: Diagnosis: Lower back pain;Paraspinal spasm Presentation: 11/12 23:31 Presenting complaint: Patient states: mid back pain, hx of chronic back pain related to lp1 Lupus, patient states pain is more severe at this time; Denies any trauma. Transition of care: patient was not received from another setting of care. Onset of symptoms was November 12, 2018. Risk Assessment: Do you want to hurt yourself or someone else? Patient reports no desire to harm self or others. Initial Sepsis Screen: Does the patient meet any 2 criteria? No. Patient's initial sepsis screen is negative. Does the patient have a suspected source of infection? No. Patient's initial sepsis screen is negative. Care prior to arrival: None. 23:31 Method Of Arrival: Wheelchair lp1 23:31 Acuity: KELSEY 4 lp1 Triage Assessment: 23:17 General: Appears in no apparent distress. uncomfortable, Behavior is cooperative, cc3 crying. Pain: Complains of pain in mid-back Pain currently is 10 out of 10 on a pain scale. EENT: No signs and/or symptoms were reported regarding the EENT system. Neuro: Level of Consciousness is awake, alert, obeys commands, Oriented to person, place, time, situation, Appropriate for age. Cardiovascular: Denies chest pain, Capillary refill < 3 seconds Patient's skin is warm and dry. Respiratory: Airway is patent Respiratory effort is even, unlabored, Respiratory pattern is regular, symmetrical. GI: Abdomen is round non-distended. : No signs and/or symptoms were reported regarding the genitourinary system. Derm: Skin is intact, is healthy with good turgor, Skin is pink, warm \T\ dry. normal. Musculoskeletal: Range of motion: limited in bilateral legs due to severe back pain. Historical: - Allergies: 23:37 Lorazepam; lp1 23:37 meloxicam; lp1 23:37 Phenergan; lp1 23:37 Zofran; lp1 - Home Meds: 23:37 Azathioprine Oral [Active]; Metoprolol Tartrate 150 mg Oral 1 tab 2 times per day lp1 [Active]; - PMHx: 23:37 Anxiety; Asthma; Churg-Hudosn Syndrome; Lupus; lp1 - PSHx: 23:37 Ear Tubes; lp1 - Immunization history:: Adult Immunizations up to date. - Social history:: Smoking status: Patient/guardian denies using tobacco. - Ebola Screening: : No symptoms or risks identified at this time. Screenin:38 Abuse screen: Denies threats or abuse. Denies injuries from another. Nutritional lp1 screening: No deficits noted. Tuberculosis screening: No symptoms or risk factors identified. Fall Risk None identified. Assessment: 23:17 General: see triage assessment. cc3 23:55 Reassessment: Patient appears in no apparent distress at this time. Patient and/or cc3 family updated on plan of care and expected duration. Pain level reassessed. Patient is alert, oriented x 3, equal unlabored respirations, skin warm/dry/pink. Patient tolerated to stand and walk around now and said she felt so much better, Dr. Lester informed. Patient states feeling better. Patient states symptoms have improved. 11/13 00:05 Reassessment: Patient appears in no apparent distress at this time. Patient and/or cc3 family updated on plan of care and expected duration. Pain level reassessed. Patient is alert, oriented x 3, equal unlabored respirations, skin warm/dry/pink. Dr. Lester discharged the patient home with prescriptions given. No IV cannula in situ. Patient left ER vitally stable and ambulatory with her friends. No valuables left in the patient's room. Patient states feeling better. Patient states symptoms have improved. Vital Signs: 11/12 23:37 Pulse 102; Resp 18; Pulse Ox 98% on R/A; Weight 102.06 kg; Height 5 ft. 11 in. (180.34 lp1 cm); Pain 10/10; 23:45 BP 114 / 72; cc3 11/13 00:00 BP 112 / 77; Pulse 97; Resp 17 S; Pulse Ox 98% on R/A; cc3 11/12 23:37 Body Mass Index 31.38 (102.06 kg, 180.34 cm) lp1 ED Course: 11/12 23:14 Patient arrived in ED. es 23:15 Guicho Lester MD is Attending Physician. ps1 23:17 Yuliya Mendez is Primary Nurse. cc3 23:35 Triage completed. lp1 23:37 Arm band placed on. lp1 23:38 Patient has correct armband on for positive identification. lp1 11/13 00:05 No provider procedures requiring assistance completed. Patient did not have IV access cc3 during this emergency room visit. Administered Medications: 11/12 23:35 Drug: TORadol 30 mg Route: IM; Site: left gluteus; cc3 23:50 Follow up: Response: No adverse reaction; Pain is decreased cc3 Outcome: 23:59 Discharge ordered by . ps1 11/13 00:05 Discharged to home ambulatory, with friend. cc3 Condition: stable Discharge instructions given to patient, Instructed on discharge instructions, follow up and referral plans. medication usage, Demonstrated understanding of instructions, follow-up care, medications, Prescriptions given X 3. 00:07 Patient left the ED. cc3 Signatures: Danika Hall Laura, RN RN lp1 Guicho Lester MD MD ps1 Yuliya Mendez cc3
--- NOTE | 2018-11-13 00:01 | EDPHYS ---
Physician Documentation [facility] Name: Tiffany Madrid Age: 23 yrs Sex: Female : 1995 Arrival Date: 11/12/2018 Time: 23:14 Bed 17 Private MD: ED Physician Guicho Lester HPI: 11/12 23:35 This 23 yrs old Female presents to ER via Wheelchair with complaints of Back ps1 Pain. 23:35 Back pain is atruamatic. Was bothering her all day but tensed up and had lower lumbar ps1 paraspinal spasm. She has a history of SLE and churgg hudson. On azathioprine. Pain rated as moderate. No fever. No urinary complaitns. Historical: - Allergies: 23:37 Lorazepam; lp1 23:37 meloxicam; lp1 23:37 Phenergan; lp1 23:37 Zofran; lp1 - Home Meds: 23:37 Azathioprine Oral [Active]; Metoprolol Tartrate 150 mg Oral 1 tab 2 times per day lp1 [Active]; - PMHx: 23:37 Anxiety; Asthma; Churg-Hudson Syndrome; Lupus; lp1 - PSHx: 23:37 Ear Tubes; lp1 - Immunization history:: Adult Immunizations up to date. - Social history:: Smoking status: Patient/guardian denies using tobacco. - Ebola Screening: : No symptoms or risks identified at this time. ROS: 23:35 Constitutional: Negative for fever, chills, and weight loss, Eyes: Negative for injury, ps1 pain, redness, and discharge, Cardiovascular: Negative for chest pain, palpitations, and edema, Respiratory: Negative for shortness of breath, cough, wheezing, and pleuritic chest pain, Abdomen/GI: Negative for abdominal pain, nausea, vomiting, diarrhea, and constipation, Skin: Negative for injury, rash, and discoloration, Neuro: Negative for headache, weakness, numbness, tingling, and seizure. 23:35 MS/Extremity: Negative for injury and deformity. 23:35 Back: Positive for decreased range of motion, pain with movement, of the left low back and left mid back. 23:35 MS/extremity: Exam: 23:35 Constitutional: This is a well developed, well nourished patient who is awake, alert, ps1 and in no acute distress. Head/Face: Normocephalic, atraumatic. Eyes: Pupils equal round and reactive to light, extra-ocular motions intact. Lids and lashes normal. Conjunctiva and sclera are non-icteric and not injected. Chest/axilla: Normal chest wall appearance and motion. Nontender with no deformity. No lesions are appreciated. Cardiovascular: Regular rate and rhythm. No gallops, murmurs, or rubs. Normal PMI, no JVD. No pulse deficits. Respiratory: Lungs have equal breath sounds bilaterally, clear to auscultation and percussion. No rales, rhonchi or wheezes noted. No increased work of breathing, no retractions or nasal flaring. Skin: Warm, dry with normal turgor. Normal color with no rashes, no lesions, and no evidence of cellulitis. MS/ Extremity: Pulses equal, no cyanosis. Neurovascular intact. Full, normal range of motion. 23:35 Back: pain, that is moderate, ROM is decreased, CVA tenderness, is absent, muscle spasm, is appreciated in the left low back and left mid back. Vital Signs: 23:37 Pulse 102; Resp 18; Pulse Ox 98% on R/A; Weight 102.06 kg; Height 5 ft. 11 in. (180.34 lp1 cm); Pain 10/10; 23:45 BP 114 / 72; cc3 07/16 00:00 BP 112 / 77; Pulse 97; Resp 17 S; Pulse Ox 98% on R/A; cc3 11/12 23:37 Body Mass Index 31.38 (102.06 kg, 180.34 cm) lp1 Procedures: 11/12 23:35 Performed osteopathic manipulation. patient evaluated in prone and seated position. Has ps1 paraspinal spasm in lumbar spine 2/2 L3-5 SRRL with compensatory changes in the thoracic spine. HVLA performed with increased ROM and reduction of pain. Patient tolerated procedure well. . MDM: 23:35 Data reviewed: vital signs, nurses notes, and as a result, I will discharge patient. ps1 Counseling: I had a detailed discussion with the patient and/or guardian regarding: the historical points, exam findings, and any diagnostic results supporting the discharge/admit diagnosis, to return to the emergency department if symptoms worsen or persist or if there are any questions or concerns that arise at home. 23:59 Patient medically screened. ps1 Administered Medications: 23:35 Drug: TORadol 30 mg Route: IM; Site: left gluteus; cc3 23:50 Follow up: Response: No adverse reaction; Pain is decreased cc3 Disposition: 11/12/18 23:59 Discharged to Home. Impression: Lower back pain, Paraspinal spasm. - Condition is Stable. - Prescriptions for Anaprox DS 550 mg Oral Tablet - take 1 tablet by ORAL route every 12 hours As needed; 20 tablet. Robaxin 500 mg Oral Tablet - take 2 tablet by ORAL route every 6 hours As needed; 40 tablet. Medrol (Romie) 4 mg Oral Tablets, Dose Pack - take 1 tablet by ORAL route as directed - follow package instructions; 1 packet. - Medication Reconciliation Form, Thank You Letter, Antibiotic Education, Prescription Opioid Use form. - Follow up: Private Physician; When: As needed; Reason: Recheck today's complaints, Continuance of care, Re-evaluation by your physician. Follow up: Emergency Department; When: As needed; Reason: Fever > 102 F, Worsening of condition. - Problem is new. - Symptoms have improved. Signatures: Kimberly Carney RN RN lp1 Guicho Lester MD MD ps1 Yuliya Mendez cc3 Corrections: (The following items were deleted from the chart) 11/13 00:07 11/12 23:59 11/12/2018 23:59 Discharged to Home. Impression: Lower back pain; cc3 Paraspinal spasm. Condition is Stable. Forms are Medication Reconciliation Form, Thank You Letter, Antibiotic Education, Prescription Opioid Use. Follow up: Private Physician; When: As needed; Reason: Recheck today's complaints, Continuance of care, Re-evaluation by your physician. Follow up: Emergency Department; When: As needed; Reason: Fever > 102 F, Worsening of condition. Problem is new. Symptoms have improved. ps1
== END 2018-11-13 00:07 | disposition home or self-care (01) ==
LOC: ER 23:09
DX: M54.5 Low back pain (principal); M62.830 Muscle spasm of back; F41.9 Anxiety disorder, unspecified; J45.909 Unspecified asthma, uncomplicated; Z88.6 Allergy status to analgesic agent; Z88.8 Allergy status to other drugs, medicaments and biological substances
CPT/HCPCS: 96372; 99283

== ENCOUNTER 2019-01-16 17:20 | Emergency (ER) | payer OTHER, BC ==
[2019-01-16] MEDS ORDERED: METHYLPREDNISOLONE 40 MG INJ ONE (18:34)
[2019-01-16] MEDS ORDERED: IPRATROPIUM BROM 0.5MG/2.5ML ONE (18:35)
[2019-01-16] MEDS ORDERED: ALBUTEROL 2.5 MG/3 ML NEB SOL ONE (18:35)
[2019-01-16 18:46] LABS: Urine Blood NEGATIVE (NEG); Urine Glucose NEGATIVE (NEG); Urine Protein NEGATIVE (NEG); Urine Specific Gravity 1.025 (1.005-1.030)
[2019-01-16 19:11] LABS: Protime INR 1.08
[2019-01-16 19:12] LABS: Absolute Lymphocytes (CBC) 1.9 K/uL (0.7-4.9); Basophils % 1.5 % (0-1.3); Hematocrit 44.1 % (36.0-45.0); Lymphocytes % 18.6 % (15.3-44.8); MPV 11.2 fL (7.6-11.3); RBC Red Blood Cell Count 4.72 M/uL (3.86-4.86)
[2019-01-16 19:23] LABS: ALT/SGPT 30 U/L (12-78); AST/SGOT 13 U/L (15-37); Alkaline Phosphatase 78 U/L (45-117); BUN Blood Urea Nitrogen 18 mg/dL (7-18); Bicarbonate 27 mmol/L (21-32); Bilirubin Direct 0.2 mg/dL (0-0.2); Bilirubin Total 0.6 mg/dL (0.2-1.0); Glucose Level 82 mg/dL (74-106); Magnesium 2.2 mg/dL (1.8-2.4); NT PRO-BNP 140 pg/mL (<125); Protein, Total 7.5 g/dL (6.4-8.2); Sodium Level 141 mmol/L (136-145); Troponin (Emerg Dept Use Only) < 0.02 ng/mL (0.0-0.045)
[2019-01-16] MEDS ORDERED: ACETAMINOPHEN 500 MG TAB ONE (19:32)
--- NOTE | 2019-01-16 21:18 | ER ---
Nurse's Notes [facility] Name: Tiffany Madrid Age: 24 yrs Sex: Female : 1995 Arrival Date: 01/16/2019 Time: 17:23 Bed 20 Private MD: Diagnosis: Unspecified asthma with (acute) exacerbation;Acute upper respiratory infection, unspecified;Syncope and collapse;Other chest pain Presentation: 01/16 17:28 Presenting complaint: Productive cough, pain with cough, SOB, subjective fever, and hb dizziness x 3-4 days, syncopal episode and sharp left sided chest pain today. Transition of care: patient was not received from another setting of care. Onset of symptoms was January 12, 2019. Risk Assessment: Do you want to hurt yourself or someone else? Patient reports no desire to harm self or others. Initial Sepsis Screen: Does the patient meet any 2 criteria? No. Patient's initial sepsis screen is negative. Does the patient have a suspected source of infection? No. Patient's initial sepsis screen is negative. Care prior to arrival: None. 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 - Social history:: Smoking status: Patient/guardian denies using tobacco. - Ebola Screening: : No symptoms or risks identified at this time. Screenin:42 Abuse screen: Denies threats or abuse. Denies injuries from another. Nutritional ca1 screening: No deficits noted. Tuberculosis screening: No symptoms or risk factors identified. Fall Risk None identified. Assessment: 17:42 General: Appears in no apparent distress. comfortable, Behavior is calm, cooperative, ca1 appropriate for age. General: Reports fever for 12-24 hours. Pain: Complains of pain in back Pain does not radiate. Pain currently is 8 out of 10 on a pain scale. Quality of pain is described as sharp, Pain began 1 day ago. Is intermittent. Neuro: Level of Consciousness is awake, alert, obeys commands, Oriented to person, place, time, situation, Appropriate for age. Cardiovascular: Heart tones S1 S2 present Capillary refill < 3 seconds Patient's skin is warm and dry. Pulses are all present. Rhythm is sinus rhythm. Respiratory: Reports cough that is non-productive, since 4 days ago pain with cough Airway is patent Respiratory effort is even, unlabored, Respiratory pattern is regular, symmetrical, Breath sounds with wheezes bilaterally. GI: Abdomen is round non-distended, Bowel sounds present X 4 quads. Abd is soft and non tender X 4 quads. : No deficits noted. No signs and/or symptoms were reported regarding the genitourinary system. EENT: No deficits noted. No signs and/or symptoms were reported regarding the EENT system. Derm: Skin is intact, is healthy with good turgor, Skin is pink, warm \T\ dry. Musculoskeletal: Circulation, motion, and sensation intact. Capillary refill < 3 seconds, Range of motion: intact in all extremities. 18:49 Reassessment: Patient appears in no apparent distress at this time. Patient and/or ca1 family updated on plan of care and expected duration. Pain level reassessed. Patient is alert, oriented x 3, equal unlabored respirations, skin warm/dry/pink. 19:47 Reassessment: Patient and/or family updated on plan of care and expected duration. Pain ea level reassessed. Patient is alert, oriented x 3, equal unlabored respirations, skin warm/dry/pink. Patient states feeling better. General: Appears in no apparent distress. Behavior is calm, cooperative, appropriate for age. Pain: Complains of pain in low back area. Neuro: Level of Consciousness is awake, alert, obeys commands, Oriented to person, place, time, situation. Cardiovascular: Patient's skin is warm and dry. Respiratory: Airway is patent Respiratory effort is even, unlabored, Respiratory pattern is regular, symmetrical. GI: Abdomen is non-distended, Bowel sounds. Derm: Skin is pink, warm \T\ dry. Musculoskeletal: Circulation, motion, and sensation intact. 20:55 Reassessment: Patient and/or family updated on plan of care and expected duration. Pain ea level reassessed. Patient is alert, oriented x 3, equal unlabored respirations, skin warm/dry/pink. Patient states feeling better. 21:43 Reassessment: Patient and/or family updated on plan of care and expected duration. Pain ea level reassessed. Patient is alert, oriented x 3, equal unlabored respirations, skin warm/dry/pink. Discharge instruction given to patient, verbalized the understanding of instruction pt left ED ambulatory accompanied by family, pt tolerating well. Patient states feeling better. Vital Signs: 17:30 BP 127 / 79; Pulse 91; Resp 20; Temp 98.1; Pulse Ox 95% on R/A; Weight 97.52 kg; Height hb 5 ft. 11 in. (180.34 cm); Pain 7/10; 18:49 BP 109 / 53; Pulse 84; Resp 16 S; Pulse Ox 100% on Nebulizer Mask; ca1 19:50 BP 120 / 74; Pulse 91; Resp 18; Temp 98; Pulse Ox 98% on R/A; ea 21:24 BP 116 / 67; Pulse 74; Resp 16; Pulse Ox 97% on R/A; mt 17:30 Body Mass Index 29.99 (97.52 kg, 180.34 cm) hb ED Course: 17:23 Patient arrived in ED. mr 17:24 Cecilio Hein MD is Private Physician. mr 17:29 Triage completed. hb 17:30 Arm band placed on. hb 17:34 Deana Hussein, RN is Primary Nurse. ca1 17:42 Patient has correct armband on for positive identification. Placed in gown. Bed in low ca1 position. Call light in reach. Side rails up X 1. surveillance system monitor on. Pulse ox on. NIBP on. Warm blanket given. Pillow given. 17:42 Patient maintains SpO2 saturation greater than 95% on room air. ca1 17:47 Demarco Carrasco PA is PHCP. cp 17:47 Jaleel Mathur MD is Attending Physician. cp 18:09 Strep Sent. 5 18:09 Flu Sent. mh5 18:09 Flu and/or RSV swab sent to lab. Strep swab sent to lab. 5 18:20 No provider procedures requiring assistance completed. Initial lab(s) drawn, by me, ca1 sent to lab. Inserted saline lock: 22 gauge in right antecubital area, using aseptic technique. Blood collected. 20:58 XRAY Chest Pa And Lat (2 Views) In Process Unspecified. EDMS 21:40 IV discontinued, intact, bleeding controlled, No redness/swelling at site. Pressure ea dressing applied. Administered Medications: 18:38 Drug: Albuterol - atroVENT (3:1) (2.5 mg - 0.5 mg) 3 ml Route: Nebulizer; ca1 19:35 Follow up: Response: No adverse reaction ea 18:45 Drug: SOLU-Medrol 60 mg Route: IVP; Site: right antecubital; ca1 19:34 Follow up: Response: No adverse reaction ea 19:34 Drug: Tylenol 1000 mg Route: PO; ea 20:30 Follow up: Response: No adverse reaction ea Outcome: 21:17 Discharge ordered by MD. cp 21:44 Discharged to home ambulatory, with family. ea 21:44 Condition: stable 21:44 Discharge instructions given to patient, Instructed on discharge instructions, follow up and referral plans. medication usage, Demonstrated understanding of instructions, follow-up care, medications, Prescriptions given X 3. 21:48 Patient left the ED. ea Signatures: Dispatcher [employer] EDMS Olivarez, Enriqueta CarrascoDemarco, PA PA Lorrie Castro, Madison Laurent RN [facility] [place], [facility] Vikki Frye RN RN ea Acob, Cheryl, RN RN ca1
--- NOTE | 2019-01-16 21:19 | EDPHYS ---
Physician Documentation [facility] Name: Tiffany Madrid Age: 24 yrs Sex: Female : 1995 Arrival Date: 01/16/2019 Time: 17:23 Bed 20 Private MD: ED Physician Jaleel Mathur HPI: 01/16 18:20 This 24 yrs old Female presents to ER via Ambulatory with complaints of Chest cp Pain, Dizziness, Breathing Difficulty. 18:20 The patient or guardian reports cough, with productive sputum, difficulty breathing. cp 18:20 Onset: The symptoms/episode began/occurred started 3-4 days ago. Associated signs and cp symptoms: Pertinent positives: chest pain, dizziness. Severity of symptoms: in the emergency department the symptoms are unchanged despite home interventions. 18:20 Patient reports increased chest pain today and syncopal episode. 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 - Social history:: Smoking status: Patient/guardian denies using tobacco. - Ebola Screening: : No symptoms or risks identified at this time. ROS: 18:25 Constitutional: Negative for body aches, chills, fever, poor PO intake. cp 18:25 Eyes: Negative for injury, pain, redness, and discharge. cp 18:25 ENT: Positive for Negative for drainage from ear(s), ear pain, difficulty swallowing, difficulty handling secretions. 18:25 Cardiovascular: Positive for chest pain, Negative for edema, palpitations. 18:25 Respiratory: Positive for cough, "sounds productive", shortness of breath. 18:25 Abdomen/GI: Negative for abdominal pain, vomiting, diarrhea, constipation. 18:25 Back: Negative for pain at rest, pain with movement. 18:25 Skin: Negative for cellulitis, rash. 18:25 Neuro: Positive for syncope, Negative for altered mental status, headache, weakness. 18:25 All other systems are negative. Exam: 18:30 Constitutional: The patient appears in no acute distress, alert, awake, cp non-diaphoretic, non-toxic, well developed, well nourished. 18:30 Head/Face: Normocephalic, atraumatic. cp 18:30 Eyes: Periorbital structures: appear normal, Conjunctiva: normal, no exudate, no injection, Sclera: no appreciated abnormality, Lids and lashes: appear normal, bilaterally. 18:30 ENT: External ear(s): are unremarkable, Ear canal(s): are normal, clear, TM's: bulging, is not appreciated, bilaterally, dullness, bilaterally, erythema, is not appreciated, bilaterally, Nose: is normal, Mouth: Lips: moist, Oral mucosa: pink and intact, moist, Posterior pharynx: Airway: no evidence of obstruction, patent, Tonsils: no enlargement, no exudate. 18:30 Chest/axilla: Inspection: normal, Palpation: is normal, no crepitus, no tenderness. 18:30 Cardiovascular: Rate: normal, Rhythm: regular, Heart sounds: murmur, not appreciated, Edema: is not appreciated, JVD: is not appreciated. 18:30 Respiratory: the patient does not display signs of respiratory distress, Respirations: labored breathing, is not present, splinting, is not noted, tachypnea, is not appreciated, Breath sounds: decreased breath sounds, are not appreciated, stridor, is not appreciated, wheezing: that is mild, is heard diffusely. 18:30 Abdomen/GI: Inspection: abdomen appears normal, Palpation: abdomen is soft and non-tender, in all quadrants. 18:30 Skin: no rash present. 18:30 Neuro: Orientation: to person, place \\T\\ time. Mentation: is normal, Cerebellar function: is grossly normal, Motor: moves all fours, strength is normal, Sensation: is normal. 19:25 ECG was reviewed by the Attending Physician. Vital Signs: 17:30 BP 127 / 79; Pulse 91; Resp 20; Temp 98.1; Pulse Ox 95% on R/A; Weight 97.52 kg; Height hb 5 ft. 11 in. (180.34 cm); Pain 7/10; 18:49 BP 109 / 53; Pulse 84; Resp 16 S; Pulse Ox 100% on Nebulizer Mask; ca1 19:50 BP 120 / 74; Pulse 91; Resp 18; Temp 98; Pulse Ox 98% on R/A; ea 21:24 BP 116 / 67; Pulse 74; Resp 16; Pulse Ox 97% on R/A; mt 17:30 Body Mass Index 29.99 (97.52 kg, 180.34 cm) hb MDM: 17:57 Patient medically screened. cp 21:10 Data reviewed: vital signs, nurses notes, lab test result(s), EKG, radiologic studies, cp plain films. Test interpretation: by ED physician or midlevel provider: ECG, chest xray negative for focal infiltrates. 01/16 17:53 Order name: Flu; Complete Time: 19:35 ca1 01/16 17:53 Order name: Strep; Complete Time: 19:35 ca1 01/16 18:16 Order name: Basic Metabolic Panel; Complete Time: 19:35 cp 01/16 20:54 Interpretation: Normal except: GFR 64. cp 01/16 18:16 Order name: CBC with Diff; Complete Time: 19:35 cp 01/16 18:16 Order name: LFT's; Complete Time: 19:35 cp 01/16 18:16 Order name: Magnesium; Complete Time: 19:35 cp 01/16 18:16 Order name: NT PRO-BNP; Complete Time: 19:35 cp 18 20:55 Interpretation: Abnormal: NT PRO-BNP 140. cp 01/16 18:16 Order name: PT-INR; Complete Time: 20:54 cp 01/16 18:16 Order name: Troponin (emerg Dept Use Only); Complete Time: 19:35 cp 01/16 18:43 Order name: Throat Culture EDMS 01/16 18:43 Order name: Urine Dipstick--Ancillary (enter results); Complete Time: 19:35 bd 01/16 18:43 Order name: Urine --Ancillary (enter results); Complete Time: 19:35 bd 01/16 19:37 Order name: LAB Add On cp 01/16 18:16 Order name: EKG; Complete Time: 18:18 cp 01/16 18:16 Order name: Cardiac monitoring; Complete Time: 18:32 cp 01/16 18:16 Order name: EKG - Nurse/Tech; Complete Time: 19:16 cp 18 18:16 Order name: IV Saline Lock; Complete Time: 18:32 cp 01/16 18:16 Order name: Labs collected and sent; Complete Time: 18:32 cp 18 18:16 Order name: O2 Per Protocol; Complete Time: 18:33 cp 01/16 18:16 Order name: O2 Sat Monitoring; Complete Time: 18:32 cp 01/16 18:16 Order name: Urine Dipstick-Ancillary (obtain specimen); Complete Time: 18:38 cp 01/16 18:16 Order name: Urine Test (obtain specimen); Complete Time: 18:38 cp 01/16 19:41 Order name: D-Dimer; Complete Time: 20:54 EDMS 01/16 20:54 Interpretation: Reviewed. 01/16 20:46 Order name: XRAY Chest Pa And Lat (2 Views); Complete Time: 21:08 cp EC:25 Rate is 86 beats/min. Rhythm is regular. IA interval is normal. QRS interval is normal. cp QT interval is normal. Interpreted by me. Reviewed by me. Administered Medications: 18:38 Drug: Albuterol - atroVENT (3:1) (2.5 mg - 0.5 mg) 3 ml Route: Nebulizer; ca1 19:35 Follow up: Response: No adverse reaction ea 18:45 Drug: SOLU-Medrol 60 mg Route: IVP; Site: right antecubital; ca1 19:34 Follow up: Response: No adverse reaction ea 19:34 Drug: Tylenol 1000 mg Route: PO; ea 20:30 Follow up: Response: No adverse reaction ea Disposition: 01/17 08:54 Co-signature as Attending Physician, Jaleel Mathur MD I agree with the assessment and kdr plan of care. Disposition: 01/16/19 21:17 Discharged to Home. Impression: Unspecified asthma with (acute) exacerbation, Acute upper respiratory infection, unspecified, Syncope and collapse, Other chest pain. - Condition is Stable. - Discharge Instructions: Asthma, Adult, Nonspecific Chest Pain, Syncope, Upper Respiratory Infection, Adult. - Prescriptions for Prednisone 20 mg Oral Tablet - take 2 tablet by ORAL route once daily for 5 days; 10 tablet. Tessalon Perles 100 mg Oral Capsule - take 2 capsule by ORAL route every 8 hours As needed; 20 capsule. Albuterol Sulfate 90 mcg/actuation - inhale 1-2 puff by INHALATION route every 4-6 hours; 1 Inhaler. - Medication Reconciliation Form, Thank You Letter, Antibiotic Education, Prescription Opioid Use form. - Follow up: Private Physician; When: 2 - 3 days; Reason: Worsening of condition. - Problem is an acute exacerbation. - Symptoms have improved. Signatures: Dispatcher [employer] [facility] Jaleel Mathur MD MD [facility] Demarco Carrasco PA PA cp Lorrie Henry RN RN hb Vikki Frye RN RN ea Acob, Cheryl, RN RN ca1 Corrections: (The following items were deleted from the chart) 01/16 19:52 19:38 D-DIMER+[id number].BRZ ordered. [facility] 21:20 21:17 01/16/2019 21:17 Discharged to Home. Impression: Unspecified asthma with (acute) cp exacerbation. Condition is Stable. Forms are Medication Reconciliation Form, Thank You Letter, Antibiotic Education, Prescription Opioid Use. Follow up: Private Physician; When: 2 - 3 days; Reason: Worsening of condition. Problem is an acute exacerbation. Symptoms have improved. cp 21:22 21:20 01/16/2019 21:17 Discharged to Home. Impression: Unspecified asthma with (acute) cp exacerbation; Acute upper respiratory infection, unspecified. Condition is Stable. Discharge Instructions: Asthma, Adult, Upper Respiratory Infection, Adult. Prescriptions for Prednisone 20 mg Oral Tablet - take 2 tablet by ORAL route once daily for 5 days; 10 tablet, Tessalon Perles 100 mg Oral Capsule - take 2 capsule by ORAL route every 8 hours As needed; 20 capsule, Albuterol Sulfate 90 mcg/actuation - inhale 1-2 puff by INHALATION route every 4-6 hours; 1 Inhaler. and Forms are Medication Reconciliation Form, Thank You Letter, Antibiotic Education, Prescription Opioid Use. Follow up: Private Physician; When: 2 - 3 days; Reason: Worsening of condition. Problem is an acute exacerbation. Symptoms have improved. cp 21:48 21:22 01/16/2019 21:17 Discharged to Home. Impression: Unspecified asthma with (acute) ea exacerbation; Acute upper respiratory infection, unspecified; Syncope and collapse; Other chest pain. Condition is Stable. Discharge Instructions: Asthma, Adult, Upper Respiratory Infection, Adult. Prescriptions for Prednisone 20 mg Oral Tablet - take 2 tablet by ORAL route once daily for 5 days; 10 tablet, Tessalon Perles 100 mg Oral Capsule - take 2 capsule by ORAL route every 8 hours As needed; 20 capsule, Albuterol Sulfate 90 mcg/actuation - inhale 1-2 puff by INHALATION route every 4-6 hours; 1 Inhaler. and Forms are Medication Reconciliation Form, Thank You Letter, Antibiotic Education, Prescription Opioid Use. Follow up: Private Physician; When: 2 - 3 days; Reason: Worsening of condition. Problem is an acute exacerbation. Symptoms have improved. cp
--- NOTE | 2019-01-16 22:25 | RAD REPORT ---
EXAM DESCRIPTION: RAD - Chest Pa And Lat (2 Views) - 01/16/2019 9:00 pm CLINICAL HISTORY: COUGH Chest pain. COMPARISON: Chest Single View dated 12/23/2018; Chest Single View dated 10/25/2018; Chest Single View dated 10/01/2018; Chest Single View dated 08/26/2018 FINDINGS: Interstitial markings are mildly prominent, which may indicate reactive airway disease, vi ral pneumonitis or bronchitis. No focal consolidation typical of bacterial pneumonia is seen. The hea rt is normal in size. No displaced fractures.
[2019-01-17 03:24] VITALS: TEMP 98
[2019-01-17 03:25] VITALS: BP 116/67; O2SAT 97
--- NOTE | 2019-01-18 10:37 | EKG ---
Test Date: 2019-01-16 Test Time: 19:14:55 Aerial Lineman: CRISTOPHER MEASUREMENT RESULTS: Intervals: Rate: 86 CT: 126 QRSD: 82 QT: 382 QTc: 457 [place]: P: 3 CT: 126 QRS: 10 T: 77 INTERPRETIVE STATEMENTS: Normal sinus rhythm Nonspecific T wave abnormality Abnormal ECG Compared to ECG 12/23/2018 03:44:57 No significant changes Electronically Signed On 01-18-19 10:32:12 CDT by Anderson Harrison
== END 2019-01-16 21:48 | disposition home or self-care (01) ==
LOC: ER 17:20
DX: J45.901 Unspecified asthma with (acute) exacerbation (principal); J06.9 Acute upper respiratory infection, unspecified; R55 Syncope and collapse; Z88.6 Allergy status to analgesic agent; Z88.8 Allergy status to other drugs, medicaments and biological substances
CPT/HCPCS: 93005; 87070; 85025; 80048; 36415; 83735; 81025; 85610; 85379; 80076; 87081; 81003; 84484; 83880; 87804 ×2; 71046; 94640; 96374; 99285; J2920

== ENCOUNTER 2019-01-19 11:39 | Emergency (ER) | payer OTHER, BC ==
--- NOTE | 2019-01-19 14:34 | ER ---
Nurse's Notes [facility] Name: Tiffany Madrid Age: 24 yrs Sex: Female : 1995 Arrival Date: 01/19/2019 Time: 11:42 Bed 25 Private MD: Mansoor Hein Diagnosis: Acute upper respiratory infection, unspecified Presentation: 01/19 12:07 Presenting complaint: Patient states: I have a few ill contacts that have strep, I came la1 here a few days ago and they tested me and it was negative but I feel worse now. Transition of care: patient was not received from another setting of care. Resp Distress? No respiratory distress is noted at this time. Onset of symptoms was January 19, 2019. Risk Assessment: Do you want to hurt yourself or someone else? Patient reports no desire to harm self or others. Initial Sepsis Screen: Does the patient meet any 2 criteria? No. Patient's initial sepsis screen is negative. Does the patient have a suspected source of infection? No. Patient's initial sepsis screen is negative. Care prior to arrival: None. 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 - Social history:: Smoking status: Patient/guardian denies using tobacco. - Ebola Screening: : No symptoms or risks identified at this time. Screenin:30 Abuse screen: Denies threats or abuse. Denies injuries from another. Nutritional mg2 screening: No deficits noted. Tuberculosis screening: No symptoms or risk factors identified. Fall Risk None identified. Assessment: 13:30 General: Appears in no apparent distress. comfortable, Behavior is calm, cooperative. mg2 Pain: Complains of pain in throat Pain does not radiate. Pain currently is 3 out of 10 on a pain scale. Quality of pain is described as aching, Pain began gradually. Neuro: Level of Consciousness is awake, alert, obeys commands, Oriented to person, place, time, situation. Cardiovascular: Capillary refill < 3 seconds Patient's skin is warm and dry. Respiratory: Airway is patent Respiratory effort is even, unlabored, Respiratory pattern is regular, symmetrical, Breath sounds are clear bilaterally. Respiratory: Reports congestion. GI: No signs and/or symptoms were reported involving the gastrointestinal system. : No signs and/or symptoms were reported regarding the genitourinary system. EENT: No signs and/or symptoms were reported regarding the EENT system. Derm: Skin is intact, is healthy with good turgor, Skin is pink, warm \T\ dry. normal. Musculoskeletal: Circulation, motion, and sensation intact. Capillary refill < 3 seconds. Vital Signs: 12:08 BP 108 / 80; Pulse 69; Resp 16; Temp 97.4; Pulse Ox 100% on R/A; Weight 99.79 kg; la1 Height 5 ft. 11 in. (180.34 cm); 13:00 BP 106 / 78; Pulse 71; Resp 18; Pulse Ox 100% ; mg2 14:00 BP 110 / 80; Pulse 70; Resp 18; Temp 98; Pulse Ox 100% on R/A; mg2 12:08 Body Mass Index 30.68 (99.79 kg, 180.34 cm) la1 ED Course: 11:42 Patient arrived in ED. as 11:42 Mansoor Hein DO is Private Physician. as 11:42 Lydia Bates FNP-C is [facility]. kb 11:42 Idris Damico MD is Attending Physician. kb 12:08 Triage completed. la1 12:08 Arm band placed on left wrist. la1 12:48 Luisito Benson, ALEX is Primary Nurse. mg2 13:30 Patient has correct armband on for positive identification. mg2 13:30 No provider procedures requiring assistance completed. mg2 13:30 Patient did not have IV access during this emergency room visit. mg2 Administered Medications: No medications were administered Outcome: 14:33 Discharge ordered by . kb 14:45 Discharged to home ambulatory, with family. mg2 14:45 Condition: stable 14:45 Discharge instructions given to patient, family, Instructed on discharge instructions, mg2 follow up and referral plans. medication usage, Demonstrated understanding of instructions, follow-up care, medications, Prescriptions given X 1. 15:00 Patient left the ED. mg2 Signatures: Lydia Bates FNP-C ARMORED SERVICE TECHNICIAN-Juani Pickens Lee, RN RN la1 Luisito Benson, RN RN mg2
--- NOTE | 2019-01-19 14:34 | EDPHYS ---
Physician Documentation [facility] Name: Tiffany Madrid Age: 24 yrs Sex: Female : 1995 Arrival Date: 01/19/2019 Time: 11:42 Bed 25 Private MD: Mansoor Hein ED Physician Idris Damico HPI: 01/19 14:10 This 24 yrs old Female presents to ER via Ambulatory with complaints of kb Congestion, Sore Throat. 14:10 The patient or guardian reports cough, that is intermittent, described as moderate, kb with no sputum, flu symptoms, low-grade fever, myalgias. Onset: The symptoms/episode began/occurred 5 day(s) ago. Severity of symptoms: At their worst the symptoms were moderate, in the emergency department the symptoms are unchanged. Modifying factors: The symptoms are alleviated by nothing, the symptoms are aggravated by nothing. Associated signs and symptoms: Pertinent positives: rhinorrhea, sore throat, Pertinent negatives: chest pain, diarrhea, ear ache, nausea, vomiting. The patient has not experienced similar symptoms in the past. The patient has been recently seen at the [facility] Emergency Department. 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 - Social history:: Smoking status: Patient/guardian denies using tobacco. - Ebola Screening: : No symptoms or risks identified at this time. ROS: 14:09 Neck: Negative for injury, pain, and swelling, Cardiovascular: Negative for chest pain, kb palpitations, and edema, Abdomen/GI: Negative for abdominal pain, nausea, vomiting, diarrhea, and constipation, Back: Negative for injury and pain, MS/Extremity: Negative for injury and deformity, Skin: Negative for injury, rash, and discoloration, Neuro: Negative for headache, weakness, numbness, tingling, and seizure. 14:09 Constitutional: Positive for body aches, chills, fatigue, fever, malaise. 14:09 ENT: Positive for rhinorrhea, sinus congestion, sore throat. 14:09 Respiratory: Positive for cough, Negative for dyspnea on exertion, hemoptysis, orthopnea, pleurisy, shortness of breath, sputum production, wheezing. Exam: 14:10 Constitutional: This is a well developed, well nourished patient who is awake, alert, kb and in no acute distress. Head/Face: Normocephalic, atraumatic. ENT: Nares patent. No nasal discharge, no septal abnormalities noted. Tympanic membranes are normal and external auditory canals are clear. Oropharynx with no redness, swelling, or masses, exudates, or evidence of obstruction, uvula midline. Mucous membranes moist. Neck: Trachea midline, no thyromegaly or masses palpated, and no cervical lymphadenopathy. Supple, full range of motion without nuchal rigidity, or vertebral point tenderness. No Meningismus. Chest/axilla: Normal chest wall appearance and motion. Nontender with no deformity. No lesions are appreciated. Cardiovascular: Regular rate and rhythm with a normal S1 and S2. No gallops, murmurs, or rubs. Normal PMI, no JVD. No pulse deficits. Abdomen/GI: Soft, non-tender, with normal bowel sounds. No distension or tympany. No guarding or rebound. No evidence of tenderness throughout. Back: No spinal tenderness. No costovertebral tenderness. Full range of motion. Skin: Warm, dry with normal turgor. Normal color with no rashes, no lesions, and no evidence of cellulitis. MS/ Extremity: Pulses equal, no cyanosis. Neurovascular intact. Full, normal range of motion. Neuro: Awake and alert, GCS 15, oriented to person, place, time, and situation. Cranial nerves II-XII grossly intact. Motor strength 5/5 in all extremities. Sensory grossly intact. Cerebellar exam normal. Normal gait. 14:10 Respiratory: the patient does not display signs of respiratory distress, Respirations: normal, Breath sounds: + upper airway congestion. Vital Signs: 12:08 BP 108 / 80; Pulse 69; Resp 16; Temp 97.4; Pulse Ox 100% on R/A; Weight 99.79 kg; la1 Height 5 ft. 11 in. (180.34 cm); 13:00 BP 106 / 78; Pulse 71; Resp 18; Pulse Ox 100% ; mg2 14:00 BP 110 / 80; Pulse 70; Resp 18; Temp 98; Pulse Ox 100% on R/A; mg2 12:08 Body Mass Index 30.68 (99.79 kg, 180.34 cm) la1 MDM: 12:48 Patient medically screened. kb 14:08 Data reviewed: vital signs, nurses notes. Data interpreted: Pulse oximetry: on room air kb is 100 %. Interpretation: normal. Counseling: I had a detailed discussion with the patient and/or guardian regarding: the historical points, exam findings, and any diagnostic results supporting the discharge/admit diagnosis, lab results, the need for outpatient follow up, a family practitioner, to return to the emergency department if symptoms worsen or persist or if there are any questions or concerns that arise at home. 14:35 ED course: Antibiotics given due to pt's history and multiple visits for same concerns kb without any improvement with previous treatment. 01/19 12:08 Order name: Strep; Complete Time: 12:48 la1 01/19 12:59 Order name: Flu; Complete Time: 13:58 kb 01/19 12:59 Order name: [place] Screen Profile; Complete Time: 13:58 kb 01/19 13:35 Order name: Throat Culture EDMS Administered Medications: No medications were administered Disposition: 01/20 07:10 Co-signature as Attending Physician, Idris Damico MD. ma2 Disposition: 01/19/19 14:33 Discharged to Home. Impression: Acute upper respiratory infection, unspecified. - Condition is Stable. - Discharge Instructions: Upper Respiratory Infection, Adult, Bguo-wx-Intm. - Prescriptions for Amoxicillin 875 mg Oral Tablet - take 1 tablet by ORAL route every 12 hours for 10 days; 20 tablet. - Medication Reconciliation Form, Thank You Letter, Antibiotic Education, Prescription Opioid Use, Work release form form. - Follow up: Emergency Department; When: As needed; Reason: Worsening of condition. Follow up: Private Physician; When: 2 - 3 days; Reason: Recheck today's complaints, Continuance of care, Re-evaluation by your physician. Signatures: Dispatcher [employer] EDMS Lydia Bates FNP-C FNP-Ckb Attema, Lee, RN RN la1 Idris Damico MD MD nm2 Luisito Benson RN RN mg2 Corrections: (The following items were deleted from the chart) 01/19 15:00 14:33 01/19/2019 14:33 Discharged to Home. Impression: Acute upper respiratory mg2 infection, unspecified. Condition is Stable. Forms are Medication Reconciliation Form, Thank You Letter, Antibiotic Education, Prescription Opioid Use. Follow up: Emergency Department; When: As needed; Reason: Worsening of condition. Follow up: Private Physician; When: 2 - 3 days; Reason: Recheck today's complaints, Continuance of care, Re-evaluation by your physician. kb
[2019-01-19 15:17] VITALS: O2SAT 100
[2019-01-19 15:20] VITALS: BP 110/80; TEMP 98
== END 2019-01-19 15:00 | disposition home or self-care (01) ==
LOC: ER 11:39
DX: J06.9 Acute upper respiratory infection, unspecified (principal)
CPT/HCPCS: 36415; 86308; 87070; 87081; 87804; 99282

== ENCOUNTER 2019-01-21 22:18 | Inpatient (IN) | payer OTHER, BC ==
[2019-01-21] MEDS ORDERED: METHYLPREDNISOLONE 125 MG INJ ONE (23:07)
[2019-01-21] MEDS ORDERED: ALBUTEROL 2.5 MG/3 ML NEB SOL ONE (23:07)
[2019-01-21] MEDS ORDERED: IPRATROPIUM BROM 0.5MG/2.5ML ONE (23:07)
[2019-01-21 23:27] LABS: Absolute Lymphocytes (CBC) 0.7 K/uL (0.7-4.9); Basophils % 0.4 % (0-1.3); Hematocrit 42.3 % (36.0-45.0); Lymphocytes % 4.7 % (15.3-44.8); MPV 10.4 fL (7.6-11.3); RBC Red Blood Cell Count 4.62 M/uL (3.86-4.86)
[2019-01-21 23:34] LABS: Protime INR 1.04
[2019-01-21] MEDS ORDERED: FENTANYL CITR 100 MCG/2 ML ONE (23:48)
[2019-01-21 23:58] LABS: ALT/SGPT 26 U/L (12-78); AST/SGOT 13 U/L (15-37); Albumin 3.9 g/dL (3.4-5.0); Alkaline Phosphatase 79 U/L (45-117); BUN Blood Urea Nitrogen 18 mg/dL (7-18); Bicarbonate 22 mmol/L (21-32); Bilirubin Direct 0.1 mg/dL (0-0.2); Bilirubin Total 0.5 mg/dL (0.2-1.0); Glucose Level 106 mg/dL (74-106); Magnesium 2.1 mg/dL (1.8-2.4); NT PRO-BNP 243 pg/mL (<125); Potassium 4.1 mmol/L (3.5-5.1); Protein, Total 7.2 g/dL (6.4-8.2); Sodium Level 140 mmol/L (136-145); Troponin (Emerg Dept Use Only) < 0.02 ng/mL (0.0-0.045)
[2019-01-22 00:12] LABS: Blood Morphology Comment NOT SEEN (NOT SEEN); Platelet Estimate ADEQ; Urine White Blood Cell Casts OK
[2019-01-22] MEDS ORDERED: NA CHLORIDE 0.9% 250 ML ONE (00:25)
[2019-01-22] MEDS ORDERED: LEVALBUTEROL 1.25 MG/3 ML NEB ONE (00:25)
[2019-01-22] MEDS ORDERED: Magnesium Sulfate 2gm IVPB 2 G/50 ML BAG IV ONE (00:26)
[2019-01-22] MEDS ORDERED: DIAZEPAM 10 MG/2 ML INJ SYRINGE ONE (02:01)
--- NOTE | 2019-01-22 02:10 | ER ---
Nurse's Notes [facility] Name: Tiffany Madrid Age: 24 yrs Sex: Female : 1995 Arrival Date: 01/21/2019 Time: 22:24 Bed 8 Private MD: Diagnosis: Mild intermittent asthma with (acute) exacerbation Presentation: 01/21 22:27 Presenting complaint: Patient states: "I have been here 3x in the last week for the ca1 same thing. I have been coughing for a week now and I have been having trouble breathing. The last time I was here, I was sent home with antibiotics, inhalers and steroids but nothing is helping". Pt also c/o of vomiting since last night from all the coughing. Transition of care: patient was not received from another setting of care. Onset of symptoms was January 21, 2019. Risk Assessment: Do you want to hurt yourself or someone else? Patient reports no desire to harm self or others. Initial Sepsis Screen: Does the patient meet any 2 criteria? No. Patient's initial sepsis screen is negative. Does the patient have a suspected source of infection? No. Patient's initial sepsis screen is negative. Care prior to arrival: None. 22:27 Method Of Arrival: Wheelchair ca1 22:27 Acuity: KELSEY 3 ca1 Triage Assessment: 23:24 General: Behavior is calm, cooperative, appropriate for age. Respiratory: Reports wh shortness of breath cough that is Onset: The symptoms/episode began/occurred at an unknown time. the patient has mild shortness of breath. 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 - Social history:: Smoking status: Patient/guardian denies using tobacco. - Ebola Screening: : Patient negative for fever greater than or equal to 101.5 degrees Fahrenheit, and additional compatible Ebola Virus Disease symptoms Patient denies exposure to infectious person Patient denies travel to an Ebola-affected area in the 21 days before illness onset No symptoms or risks identified at this time. Screenin:22 Abuse screen: Denies threats or abuse. Denies injuries from another. Nutritional wh screening: No deficits noted. Tuberculosis screening: No symptoms or risk factors identified. Fall Risk None identified. Assessment: 23:22 General: Appears in no apparent distress. Pain: Denies pain. Neuro: Level of wh Consciousness is awake, alert, obeys commands. Cardiovascular: Heart tones S1 S2 Rhythm is regular. Respiratory: Airway is patent Respiratory effort is even, unlabored, Respiratory pattern is regular, symmetrical, Breath sounds with wheezes bilaterally. GI: Abdomen is flat, non-distended, Abd is soft and non tender X 4 quads. : No signs and/or symptoms were reported regarding the genitourinary system. EENT: No signs and/or symptoms were reported regarding the EENT system. Derm: Skin is intact, is healthy with good turgor, Skin is pink, warm \\T\\ dry. normal. Musculoskeletal: Circulation, motion, and sensation intact. 23:54 Reassessment: Patient appears in no apparent distress at this time. No changes from ca1 previously documented assessment. Patient and/or family updated on plan of care and expected duration. Pain level reassessed. Patient is alert, oriented x 3, equal unlabored respirations, skin warm/dry/pink. 01/22 00:32 Reassessment: patient's status has not changed since after the breathing treatment and rv steroid dose. still complaining of SOB, wheezes on both lungs. checked vital signs and referred to Sharona. another dose of breathing treatment administered. 01:18 Reassessment: No changes from previously documented assessment. still having wheezes on rv both lungs. verbalized comfort after the 2nd breathing treatment, but still feels the tightness on the chest. 02:05 Reassessment: patient's oxygen saturation mostly at 91-92% but sometimes goes up to rv 96-97%. referred to Sharona. Sharona tried to talk to the patient regarding plan of care, emotional right now and crying at bedside. given Valium as ordered. 03:46 Reassessment: Patient appears in no apparent distress at this time. Patient and/or jd3 family updated on plan of care and expected duration. Pain level reassessed. Patient is alert, oriented x 3, equal unlabored respirations, skin warm/dry/pink. report called to Morelia JOHNSON. Vital Signs: 01/21 22:31 BP 103 / 56; Pulse 100; Resp 19 S; Temp 98.2(O); Pulse Ox 94% on R/A; Weight 97.52 kg ca1 (R); Height 5 ft. 10 in. (177.80 cm) (R); Pain 8/10; 23:54 BP 117 / 56; Pulse 99; Resp 18; Pulse Ox 93% on R/A; ca1 01/22 00:35 BP 109 / 62; Pulse 90; Resp 21; Pulse Ox 98% on Nebulizer Mask; rv 01:19 BP 127 / 67; Pulse 101; Resp 20; Pulse Ox 95% on R/A; rv 01:37 BP 114 / 62; Pulse 102; Resp 18; Pulse Ox 95% on R/A; rv 01:52 BP 138 / 89; Pulse 109; Resp 23; Pulse Ox 91% on R/A; rv 02:07 BP 123 / 75; Pulse 106; Resp 21; Pulse Ox 93% on R/A; rv 03:46 BP 110 / 61; Pulse 89; Resp 20 S; Pulse Ox 94% on R/A; jd3 01/21 22:31 Body Mass Index 30.85 (97.52 kg, 177.80 cm) ca1 ED Course: 01/21 22:24 Patient arrived in ED. cf2 22:30 Triage completed. ca1 22:31 Arm band placed on right wrist. ca1 22:35 Rahel Mueller is Primary Nurse. 22:36 Ryan Tabor PA is PHCP. jr8 22:36 Faisal Mata MD is Attending Physician. jr8 23:10 Inserted saline lock: 22 gauge in right antecubital area, using aseptic technique. Blood collected. 23:24 Patient has correct armband on for positive identification. Bed in low position. Call light in reach. Side rails up X 1. Pulse ox on. NIBP on. 23:26 XRAY Chest (1 view) In Process Unspecified. EDMS 01/22 02:09 Idris Quesada MD is Hospitalizing Provider. jr8 03:44 No provider procedures requiring assistance completed. Patient admitted, IV remains in jd3 place. Administered Medications: 01/21 23:09 Drug: Albuterol - atroVENT (3:1) (2.5 mg - 0.5 mg) 3 ml Route: Nebulizer; rv 01/22 00:31 Follow up: Response: No adverse reaction; Wheezing unchanged rv 01/21 23:17 Drug: SOLU-Medrol 125 mg Route: IVP; Site: right antecubital; 01/22 00:31 Follow up: Response: No adverse reaction; Wheezing unchanged rv 01/21 23:53 Drug: fentaNYL (PF) 25 mcg {Note: RASS 0.} Route: IVP; Site: right antecubital; [facility] 01/22 01:16 Follow up: Response: No adverse reaction; Pain is decreased; RASS: Alert and Calm (0) rv 00:30 Drug: Magnesium Sulfate 2 grams Route: IVPB; Infused Over: 2 hrs; Site: right rv antecubital; 02:00 Follow up: Response: No adverse reaction; IV Status: Completed infusion jd3 00:30 Drug: Xopenex (3) 1.25 mg Route: Inhalation; rv 01:17 Follow up: Response: No adverse reaction; feels a little bit better than she came in rv 02:05 Drug: Valium 2 mg Route: IVP; Site: right antecubital; rv 03:00 Follow up: Response: No adverse reaction jd3 Intake: Outcome: 02:09 Decision to Hospitalize by Provider. cristian 03:44 Admitted to Med/surg accompanied by lindsey, via wheelchair, room 225, with chart, Report jd3 called to Morelia JOHNSON 03:44 Condition: stable 03:44 Instructed on the need for admit, Demonstrated understanding of instructions. 03:46 Patient left the ED. jd3 Signatures: Dispatcher [employer] EDMS Ryan Tabor PA PA jr8 Rahel Mueller Gildardo Ma RN RN jEl Cameron RN RN rv Deana Hussein RN RN ca1 Darlene Johnson cf2 Corrections: (The following items were deleted from the chart) 01/21 23:26 22:31 Allergies: Lorazepam; ca1 01/22 00:07 01/21 23:22 Respiratory: Airway is patent Respiratory effort is even, unlabored, ca1 Respiratory pattern is regular, symmetrical, Breath sounds are clear bilaterally. 01/22 01:54 01:37 BP 114 / 62; Pulse 102bpm; Resp 18bpm; Pulse Ox 97% RA; rv rv
--- NOTE | 2019-01-22 02:10 | EDPHYS ---
Physician Documentation [facility] Name: Tiffany Madrid Age: 24 yrs Sex: Female : 1995 Arrival Date: 01/21/2019 Time: 22:24 Bed 8 Private MD: ED Physician Faisal Mata HPI: 01/22 00:02 This 24 yrs old Female presents to ER via Wheelchair with complaints of jr8 Shortness Of Breath, Back Pain. 00:02 The patient has shortness of breath at rest. Onset: The symptoms/episode began/occurred jr8 acutely, 1 week(s) ago, and became persistent. Duration: The symptoms are continuous, and are steadily getting worse. The patient's shortness of breath is aggravated by coughing, exertion. Associated signs and symptoms: Pertinent positives: non-productive cough. Severity of symptoms: At their worst the symptoms were moderate in the emergency department the symptoms are unchanged. It is unknown whether or not the patient has had similar symptoms in the past. The patient has been recently seen by a physician:. 00:03 Patient recently seen on the and of this month for respiratory problems. jr8 Stated that it still is getting worse. Currently on Amoxil and finished steroid treatment. Had been using albuterol inhaler as well . 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 - Social history:: Smoking status: Patient/guardian denies using tobacco. - Ebola Screening: : Patient negative for fever greater than or equal to 101.5 degrees Fahrenheit, and additional compatible Ebola Virus Disease symptoms Patient denies exposure to infectious person Patient denies travel to an Ebola-affected area in the 21 days before illness onset No symptoms or risks identified at this time. ROS: 01/22 00:03 Eyes: Negative for injury, pain, redness, and discharge, ENT: Negative for injury, jr8 pain, and discharge, Neck: Negative for injury, pain, and swelling, Cardiovascular: Negative for chest pain, palpitations, and edema, Abdomen/GI: Negative for abdominal pain, nausea, vomiting, diarrhea, and constipation, Back: Negative for injury and pain, MS/Extremity: Negative for injury and deformity, Skin: Negative for injury, rash, and discoloration, Neuro: Negative for headache, weakness, numbness, tingling, and seizure. Respiratory: Positive for cough, dyspnea on exertion, shortness of breath, wheezing. Exam: 00:03 Eyes: Pupils equal round and reactive to light, extra-ocular motions intact. Lids and jr8 lashes normal. Conjunctiva and sclera are non-icteric and not injected. Cornea within normal limits. Periorbital areas with no swelling, redness, or edema. ENT: Nares patent. No nasal discharge, no septal abnormalities noted. Tympanic membranes are normal and external auditory canals are clear. Oropharynx with no redness, swelling, or masses, exudates, or evidence of obstruction, uvula midline. Mucous membranes moist. Neck: Trachea midline, no thyromegaly or masses palpated, and no cervical lymphadenopathy. Supple, full range of motion without nuchal rigidity, or vertebral point tenderness. No Meningismus. Cardiovascular: Regular rate and rhythm with a normal S1 and S2. No gallops, murmurs, or rubs. Normal PMI, no JVD. No pulse deficits. Abdomen/GI: Soft, non-tender, with normal bowel sounds. No distension or tympany. No guarding or rebound. No evidence of tenderness throughout. Back: No spinal tenderness. No costovertebral tenderness. Full range of motion. Skin: Warm, dry with normal turgor. Normal color with no rashes, no lesions, and no evidence of cellulitis. MS/ Extremity: Pulses equal, no cyanosis. Neurovascular intact. Full, normal range of motion. Neuro: Awake and alert, GCS 15, oriented to person, place, time, and situation. Cranial nerves II-XII grossly intact. Motor strength 5/5 in all extremities. Sensory grossly intact. Cerebellar exam normal. Normal gait. 00:03 Respiratory: the patient does not display signs of respiratory distress, Respirations: normal, symetrical, no use of accessory muscles, no grunting, no evidence of nasal flaring, no prolonged exhalations, no pursed lip breathing, no retractions, no shallow respirations, no splinting, no tachypnea, Breath sounds: wheezing: expiratory that is moderate, is heard diffusely. Vital Signs: 01/21 22:31 BP 103 / 56; Pulse 100; Resp 19 S; Temp 98.2(O); Pulse Ox 94% on R/A; Weight 97.52 kg ca1 (R); Height 5 ft. 10 in. (177.80 cm) (R); Pain 8/10; 23:54 BP 117 / 56; Pulse 99; Resp 18; Pulse Ox 93% on R/A; ca1 01/22 00:35 BP 109 / 62; Pulse 90; Resp 21; Pulse Ox 98% on Nebulizer Mask; rv 01:19 BP 127 / 67; Pulse 101; Resp 20; Pulse Ox 95% on R/A; rv 01:37 BP 114 / 62; Pulse 102; Resp 18; Pulse Ox 95% on R/A; rv 01:52 BP 138 / 89; Pulse 109; Resp 23; Pulse Ox 91% on R/A; rv 02:07 BP 123 / 75; Pulse 106; Resp 21; Pulse Ox 93% on R/A; rv 03:46 BP 110 / 61; Pulse 89; Resp 20 S; Pulse Ox 94% on R/A; jd3 01/21 22:31 Body Mass Index 30.85 (97.52 kg, 177.80 cm) ca1 MDM: 01/21 22:40 Patient medically screened. jr8 01/22 01:55 Data reviewed: vital signs, nurses notes, lab test result(s), EKG, radiologic studies, [facility] plain films. Data interpreted: Pulse oximetry: on room air is 91 %. Interpretation: borderline. Counseling: I had a detailed discussion with the patient and/or guardian regarding: the historical points, exam findings, and any diagnostic results supporting the discharge/admit diagnosis, lab results, radiology results, the need for further work-up and treatment in the hospital. 02:07 ED course: Patient post treatments still with lower then acceptable oxygen saturation. cristian Has been here three times this week for similar complaints. Will admit for observation . 01/21 23:02 Order name: Basic Metabolic Panel; Complete Time: 00:01 jr8 01/21 23:02 Order name: CBC with Diff; Complete Time: 00:15 8 01/21 23:02 Order name: LFT's; Complete Time: 00:01 01/21 23:02 Order name: Magnesium; Complete Time: 00:01 01/21 23:02 Order name: NT PRO-BNP; Complete Time: 00:01 01/21 23:02 Order name: PT-INR; Complete Time: 23:44 01/21 23:02 Order name: Troponin (emerg Dept Use Only); Complete Time: 00:01 [facility] 01/21 23:02 Order name: XRAY Chest (1 view) [facility] 01/22 00:34 Order name: CBC Smear Scan [facility] 01/22 02:27 Order name: Urine Dipstick--Ancillary (enter results) [facility] 01/22 02:27 Order name: Urine --Ancillary (enter results) [facility] 01/22 03:01 Order name: Lipid Profile [facility] 01/22 03:01 Order name: Lipid Profile [facility] 01/21 23:02 Order name: EKG; Complete Time: 23:03 [facility] 01/21 23:02 Order name: Cardiac monitoring; Complete Time: 23:21 01/21 23:02 Order name: EKG - Nurse/Tech; Complete Time: 23:21 01/21 23:02 Order name: IV Saline Lock; Complete Time: 23:21 01/21 23:02 Order name: Labs collected and sent; Complete Time: 23:21 01/21 23:02 Order name: O2 Per Protocol; Complete Time: 23:21 01/21 23:02 Order name: O2 Sat Monitoring; Complete Time: 23:21 [facility] 01/22 02:06 Order name: Urine Test (obtain specimen); Complete Time: 02:23 01/22 02:06 Order name: Urine Dipstick-Ancillary (obtain specimen); Complete Time: 02:23 01/22 03:01 Order name: Heart Healthy EDTN Administered Medications: 01/21 23:09 Drug: Albuterol - atroVENT (3:1) (2.5 mg - 0.5 mg) 3 ml Route: Nebulizer; 01/22 00:31 Follow up: Response: No adverse reaction; Wheezing unchanged 01/21 23:17 Drug: SOLU-Medrol 125 mg Route: IVP; Site: right antecubital; 01/22 00:31 Follow up: Response: No adverse reaction; Wheezing unchanged rv 01/21 23:53 Drug: fentaNYL (PF) 25 mcg {Note: RASS 0.} Route: IVP; Site: right antecubital; ca1 01/22 01:16 Follow up: Response: No adverse reaction; Pain is decreased; RASS: Alert and Calm (0) rv 00:30 Drug: Magnesium Sulfate 2 grams Route: IVPB; Infused Over: 2 hrs; Site: right rv antecubital; 02:00 Follow up: Response: No adverse reaction; IV Status: Completed infusion jd3 00:30 Drug: Xopenex (3) 1.25 mg Route: Inhalation; rv 01:17 Follow up: Response: No adverse reaction; feels a little bit better than she came in rv 02:05 Drug: Valium 2 mg Route: IVP; Site: right antecubital; rv 03:00 Follow up: Response: No adverse reaction jd3 Disposition: 06:16 Co-signature as Attending Physician, Faisal Mata MD. rn Disposition: 01/22/19 02:09 Hospitalization ordered by Idris Quesada for Observation. Preliminary diagnosis is Mild intermittent asthma with (acute) exacerbation. - Bed requested for Telemetry/MedSurg (observation). - Status is Observation. jd3 - Condition is Stable. - Problem is new. - Symptoms have improved. UTI on Admission? No Signatures: Dispatcher [employer] EDMS Faisal Mata MD MD rn Roszak, Josh, PA PA jr8 Elva Choe RN RN Rahel Mueller Gildardo Ma RN RN jEl Cameron RN RN Deana Hussein RN RN ca1 Corrections: (The following items were deleted from the chart) 01/21 23:26 22:31 Allergies: Lorazepam; [facility] 01/22 03:11 02:09 Hospitalization Ordered by Idris Quesada MD for Observation. Preliminary cg diagnosis is Mild intermittent asthma with (acute) exacerbation. Bed requested for Telemetry/MedSurg (observation). Status is Observation. Condition is Stable. Problem is new. Symptoms have improved. UTI on Admission? No. jr8 03:46 03:11 01/22/2019 02:09 Hospitalization Ordered by Idris Quesada MD for Observation. jd3 Preliminary diagnosis is Mild intermittent asthma with (acute) exacerbation. Bed requested for Telemetry/MedSurg (observation). Status is Observation. Condition is Stable. Problem is new. Symptoms have improved. UTI on Admission? No. cg
[2019-01-22] MEDS ORDERED: ONDANSETRON 4 MG/2 ML VIAL IV PRN (02:56)
[2019-01-22] MEDS ORDERED: ACETAMINOPHEN 500 MG TAB PO PRN (02:56)
[2019-01-22 04:05] LABS: Urine Blood NEGATIVE (NEG); Urine Glucose NEGATIVE (NEG); Urine Protein NEGATIVE (NEG); Urine Specific Gravity >1.030 (1.005-1.030)
[2019-01-22 04:27] VITALS: BMI 32.1
[2019-01-22] MEDS ORDERED: FENTANYL CITR 100 MCG/2 ML IV ONE ×2 (04:36→21:00)
[2019-01-22] MEDS: METHYLPREDNISOLONE 125 MG INJ IV SCH ×5 (05:25→23:29)
--- NOTE | 2019-01-22 07:41 | RAD REPORT ---
EXAM DESCRIPTION: RAD - Chest Single View - 01/21/2019 11:25 pm CLINICAL HISTORY: Dyspnea COMPARISON: January 16 TECHNIQUE: AP portable chest image was obtained 2318 hours . FINDINGS: Lungs are clear. No focal lung parenchymal process. Interstitial pattern not outside of no rmal range. Heart and vasculature are normal. No measurable pleural effusion and no pneumothorax. No acute bony abnormality seen. No acute aortic findings suspected. IMPRESSION: No acute cardiopulmonary process. No suspicious change from comparison.
[2019-01-22] MEDS: ALBUTEROL 2.5 MG/3 ML NEB SOL NEB SCH ×3 (07:55→20:00)
[2019-01-22] MEDS: IPRATROPIUM BROM 0.5MG/2.5ML NEB SCH ×3 (07:55→20:00)
--- NOTE | 2019-01-22 08:28 | EKG ---
Test Date: 2019-01-21 Test Time: 23:19:04 Baster Hand: THEO MEASUREMENT RESULTS: Intervals: Rate: 86 WA: 118 QRSD: 72 QT: 350 QTc: 418 [place]: P: 15 WA: 118 QRS: 25 T: 0 INTERPRETIVE STATEMENTS: Normal sinus rhythm Septal infarct, age undetermined Abnormal ECG Compared to ECG 01/16/2019 19:14:55 Myocardial infarct finding now present T-wave abnormality no longer present Electronically Signed On 01-22-19 08:26:55 CDT by Anderson Harrison
[2019-01-22] MEDS ORDERED: CEFTRIAXONE 1 GM/NS 50 ML 1 GM/50 ML BAG IV SCH (09:00)
[2019-01-22] MEDS ORDERED: AZITHROMYCIN IV 500 MG in NA CHLORIDE 0.9% 250 ML IVPB SCH (09:00)
--- NOTE | 2019-01-22 09:19 | P.HP ---
Certification for Inpatient Patient admitted to: Inpatient With expected LOS: >2 Midnights Patient will require the following post-hospital care: None Practitioner: I am a practitioner with admitting privileges, knowledge of patient current condition, hospital course, and medical plan of care. Services: Services provided to patient in accordance with Admission requirements found in Title 42 Section 412.3 of the Code of Federal Regulations Patient History Date of Service: 01/22/19 Reason for admission: Hypoxemia History of Present Illness: Patient is a 24-year-old female with a history of asthma. She states over the last 2-3 days she has been feeling very congested. She relates this to the weather change. She has been coughing and congested. Patient has been vaping pain for the last 4-5 years. Patient has been made for the last few days since she has been sick. She does feel like she is able to breathe better. In the emergency room she was slightly hypoxic satting 89-90% on room air. She was tachypneic. She was given multiple breathing treatments and was not feeling better. Decision was made to admit her to the hospital for further treatment and monitoring. Allergies lorazepam Allergy (Verified 01/22/19 04:03) Unknown meloxicam Allergy (Verified 01/22/19 04:03) seecom promethazine [From Phenergan] Allergy (Verified 01/22/19 04:03) Unknown Zofran (as hydroch Allergy (Uncoded 08/02/16 19:44) Unknown Home Medications: Metoprolol Tartrate 150 mg PO BID 01/22/19 Sertraline [Zoloft] 25 mg PO DAILY 01/22/19 azaTHIOprine [Azathioprine] 75 mg PO BID 01/22/19 - Past Medical/Surgical History Has patient received pneumonia vaccine in the past: No Diabetic: No -: ASHMA -: LUPUS -: ANXIETY -: EAR TUBES REMOVED -: BONE MARROW BIOPSY - Family History Father Medical History: Heart disease Mother Medical History: Lung disease, Cancer - Social History Smoking Status: Current some day smoker Alcohol use: Yes CD- Drugs: No Caffeine use: Yes Place of Residence: Home Review of Systems 10-point ROS is otherwise unremarkable Physical Examination - Vital Signs Temperature: 97.6 F Blood Pressure: 108/62 Pulse: 89 Respirations: 18 Pulse Ox (%): 93 - Physical Exam General: Alert, In no apparent distress, Oriented x3 HEENT: Atraumatic, PERRLA, Mucous membr. moist/pink, EOMI, Sclerae nonicteric Neck: Supple, 2+ carotid pulse no bruit, No LAD, Without JVD or thyroid abnormality Respiratory: Diminished, Expiratory wheezes Cardiovascular: Regular rate/rhythm, Normal S1 S2, No murmurs Gastrointestinal: Normal bowel sounds, Soft and benign, Non-distended, No tenderness Musculoskeletal: No clubbing, No swelling, No tenderness Integumentary: No rashes Neurological: Normal gait, Normal speech, Normal strength at 5/5 x4 extr, Normal tone, Sensation intact, Cranial nerves 3-12 intact, Normal affect Lymphatics: No axilla or inguinal lymphadenopathy - Studies Laboratory Data (last 24 hrs) 01/21/19 23:10: PT 12.3, INR 1.04 01/21/19 23:10: WBC 15.8 H D, Hgb 14.6, Hct 42.3, Plt Count 217 01/21/19 23:10: Sodium 140, Potassium 4.1, BUN 18, Creatinine 1.15, Glucose 106 , Magnesium 2.1, Total Bilirubin 0.5, AST 13 L, ALT 26, Alkaline Phosphatase 79 Assessment & Plan - Problems (Diagnosis) (1) Hypoxemia Current Visit: Yes Status: Acute (2) Asthma exacerbation Current Visit: Yes Status: Acute (3) Non-nicotine vapor product user Current Visit: Yes Status: Acute - Plan -nebs, steroids, and antibiotics -O2 per protocol. -peak flow measurements -outpatient spirometry or pulmonary function testing as an outpt -repeat chest x-ray in AM -pulmonary consultation if worsening Discharge Plan: Home Plan to discharge in: Greater than 2 days - Advance Directives Does patient have a Living Will: No Does patient have a Durable POA for Healthcare: No - Code Status/Comfort Care Code Status Assessed: Yes Code Status: Full Code Critical Care: No Time Spent Managing PTS Care (In Minutes): 45
[2019-01-22] MEDS: ENOXAPARIN 40 MG/0.4 ML SQ SCH (09:22)
[2019-01-22] MEDS: CEFTRIAXONE/SWI 1gm 1 GM/10 ML SYR IV SCH ×2 (09:22→21:39)
[2019-01-22] MEDS ORDERED: NA CHLORIDE 0.9% 500 ML IV ONE (11:16)
[2019-01-22] MEDS ORDERED: TOPIRAMATE 25 MG TAB PO ONE (15:16)
[2019-01-23] MEDS: HYDROCODONE/CHLORPHEN 5 ML/OSYR PO PRN ×2 (00:05→10:35)
[2019-01-23] MEDS: ALBUTEROL 2.5 MG/3 ML NEB SOL NEB SCH ×2 (02:00→07:50)
[2019-01-23] MEDS: IPRATROPIUM BROM 0.5MG/2.5ML NEB SCH ×2 (02:00→07:50)
[2019-01-23] MEDS: ENOXAPARIN 40 MG/0.4 ML SQ SCH (08:52)
[2019-01-23] MEDS: CEFTRIAXONE/SWI 1gm 1 GM/10 ML SYR IV SCH (08:52)
[2019-01-23] MEDS ORDERED: METHYLPREDNISOLONE 125 MG INJ IV SCH (09:00)
[2019-01-23 11:54] VITALS: O2SAT 94
[2019-01-23 12:35] VITALS: BP 99/55; TEMP 97.1
--- NOTE | 2019-01-23 12:53 | P.SSS ---
Patient History Date of Service: 01/23/19 Reason for admission: Hypoxemia History of Present Illness: Patient is a 24-year-old female with a history of asthma. She states over the last 2-3 days she has been feeling very congested. She relates this to the weather change. She has been coughing and congested. Patient has been vaping pain for the last 4-5 years. Patient has been made for the last few days since she has been sick. She does feel like she is able to breathe better. In the emergency room she was slightly hypoxic satting 89-90% on room air. She was tachypneic. She was given multiple breathing treatments and was not feeling better. Decision was made to admit her to the hospital for further treatment and monitoring. Allergies azithromycin Allergy (Verified 01/23/19 03:24) Itching/Hives/Rash lorazepam Allergy (Verified 01/22/19 04:03) Unknown meloxicam Allergy (Verified 01/22/19 04:03) seecom promethazine [From Phenergan] Allergy (Verified 01/22/19 04:03) Unknown Zofran (as hydroch Allergy (Uncoded 08/02/16 19:44) Unknown Home Medications: Metoprolol Tartrate 150 mg PO BID 01/22/19 Sertraline [Zoloft*] 25 mg PO DAILY 01/22/19 azaTHIOprine [Azathioprine] 75 mg PO BID 01/22/19 Benzonatate [Tessalon Perle] 100 mg PO TID #15 cap 01/23/19 predniSONE [Deltasone*] 10 mg PO DAILY #5 tab 01/23/19 - Past Medical/Surgical History Has patient received pneumonia vaccine in the past: No Diabetic: No -: ASHMA -: LUPUS -: ANXIETY -: EAR TUBES REMOVED -: BONE MARROW BIOPSY - Family History Father -: Heart disease Mother -: Lung disease, Cancer - Social History Smoking Status: Current some day smoker Alcohol use: Yes CD- Drugs: No Caffeine use: Yes Place of Residence: Home Review of Systems 10-point ROS is otherwise unremarkable Physical Examination - Vital Signs Temperature: 97.1 F Blood Pressure: 99/55 Pulse: 96 Respirations: 20 Pulse Ox (%): 96 - Physical Exam General: Alert, In no apparent distress HEENT: Atraumatic, PERRLA, Mucous membr. moist/pink, EOMI, Sclerae nonicteric Neck: Supple, 2+ carotid pulse no bruit, No LAD, Without JVD or thyroid abnormality Respiratory: Clear to auscultation bilaterally, Normal air movement Cardiovascular: Regular rate/rhythm, Normal S1 S2 Gastrointestinal: Normal bowel sounds, No tenderness Musculoskeletal: No tenderness Integumentary: No rashes Neurological: Normal gait, Normal speech, Normal strength at 5/5 x4 extr, Normal tone, Normal affect Lymphatics: No axilla or inguinal lymphadenopathy - Diagnosis (Problem(s)) (1) Asthma exacerbation Status: Acute (2) Non-nicotine vapor product user Status: Acute Treatment Summary: Overall during the hospital stay patient remained stable Patient was initially admitted to the hospital for asthma exacerbation. Patient was started on duo nebs along with steroids while here in the hospital. Due to the history of weight being patient was monitor for next 24 hr here in the hospital. Patient had marked improvement in her symptoms and thus was discharged home under stable condition was asked to follow up with pulmonology in about 1-2 days post discharge. Patient demonstrate understanding. Patient was also asked to continue taking her inhalers that she takes at home which is Symbicort and albuterol - Disposition Disposition: ROUTINE DISCHARGE Condition: GOOD Diet: Regular Activity: Ad live
== END 2019-01-23 12:32 | disposition home or self-care (01) | DRG 203 ==
LOC: ER 22:18 → 2ND 01-22 03:44
PROVIDERS: ADMIT Family Medicine; ATTEND Hospitalist
DX: J45.901 Unspecified asthma with (acute) exacerbation (principal); R09.02 Hypoxemia; F17.290 Nicotine dependence, other tobacco product, uncomplicated; M32.9 Systemic lupus erythematosus, unspecified
CPT/HCPCS: 36415; 71045; 80048; 80061; 80076; 81003; 81025; 83735; 83880; 84484; 85025; 85610; 93005; 94010; 94640; 94760; 96365; 96375; 99285; J0456; J0696; J1650; J2405; J2930; J3010; J3360; J3475

== ENCOUNTER 2019-02-24 18:00 | Emergency (ER) | payer OTHER, BC ==
[2019-02-24] MEDS ORDERED: HYDROCODONE/APAP 7.5/325 MG TAB ONE (18:51)
[2019-02-24 19:30] LABS: Urine Blood NEGATIVE (NEG); Urine Glucose NEGATIVE (NEG); Urine Protein 1+ (NEG); Urine Specific Gravity 1.025 (1.005-1.030)
--- NOTE | 2019-02-24 19:36 | EDPHYS ---
Physician Documentation [facility] Name: Tiffany Madrid Age: 24 yrs Sex: Female : 1995 Arrival Date: 02/24/2019 Time: 18:12 Bed 24 Private MD: ED Physician Faisal Mata HPI: 02/24 19:33 This 24 yrs old Female presents to ER via EMS with complaints of Hip Pain. kb 19:33 The patient or guardian reports pain. that occurred at work, sustained from walking and kb maybe turned wrong causing a pain in hip There is no obvious deformity, The patient is able to self ambulate. The patient is able to bear their full body weight. There is no radiation of the patient's discomfort. The complaints affect the left hip. Onset: The symptoms/episode began/occurred just prior to arrival. Modifying factors: The symptoms are alleviated by nothing, the symptoms are aggravated by nothing. Associated signs and symptoms: Loss of consciousness: the patient experienced no loss of consciousness. Severity of symptoms: At their worst the symptoms were moderate, in the emergency department the symptoms have improved, mildly. The patient has not experienced similar symptoms in the past. The patient has not recently seen a physician. 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 - Social history:: Smoking status: Patient uses tobacco products, denies chronic smoking, but will smoke occasionally. - Ebola Screening: : No symptoms or risks identified at this time. ROS: 19:32 Constitutional: Negative for fever, chills, and weight loss, ENT: Negative for injury, kb pain, and discharge, Neck: Negative for injury, pain, and swelling, Cardiovascular: Negative for chest pain, palpitations, and edema, Respiratory: Negative for shortness of breath, cough, wheezing, and pleuritic chest pain, Abdomen/GI: Negative for abdominal pain, nausea, vomiting, diarrhea, and constipation, Back: Negative for injury and pain, Skin: Negative for injury, rash, and discoloration, Neuro: Negative for headache, weakness, numbness, tingling, and seizure. 19:32 MS/extremity: Positive for pain, tenderness, of the left hip. Exam: 19:32 Constitutional: This is a well developed, well nourished patient who is awake, alert, kb and in no acute distress. Head/Face: Normocephalic, atraumatic. Neck: Trachea midline, no thyromegaly or masses palpated, and no cervical lymphadenopathy. Supple, full range of motion without nuchal rigidity, or vertebral point tenderness. No Meningismus. Chest/axilla: Normal chest wall appearance and motion. Nontender with no deformity. No lesions are appreciated. Cardiovascular: Regular rate and rhythm with a normal S1 and S2. No gallops, murmurs, or rubs. Normal PMI, no JVD. No pulse deficits. Respiratory: Lungs have equal breath sounds bilaterally, clear to auscultation and percussion. No rales, rhonchi or wheezes noted. No increased work of breathing, no retractions or nasal flaring. Abdomen/GI: Soft, non-tender, with normal bowel sounds. No distension or tympany. No guarding or rebound. No evidence of tenderness throughout. Skin: Warm, dry with normal turgor. Normal color with no rashes, no lesions, and no evidence of cellulitis. Neuro: Awake and alert, GCS 15, oriented to person, place, time, and situation. Cranial nerves II-XII grossly intact. Motor strength 5/5 in all extremities. Sensory grossly intact. Cerebellar exam normal. Normal gait. 19:32 Musculoskeletal/extremity: Extremities: grossly normal except: noted in the left hip: pain, ROM: intact in all extremities, Circulation is intact in all extremities. Sensation intact. Weight bearing: able to fully bear weight, without difficulty. Vital Signs: 18:41 BP 92 / 63; Pulse 92; Resp 17; Temp 98.1; Pulse Ox 100% ; tr5 MDM: 18:14 Patient medically screened. kb 19:32 Data reviewed: vital signs, nurses notes. Data interpreted: Pulse oximetry: on room air kb is 100 %. Interpretation: normal. Counseling: I had a detailed discussion with the patient and/or guardian regarding: the historical points, exam findings, and any diagnostic results supporting the discharge/admit diagnosis, radiology results, the need for outpatient follow up, a family practitioner, to return to the emergency department if symptoms worsen or persist or if there are any questions or concerns that arise at home. ED course: Pt able to ambulate without assist. 02/24 19:27 Order name: Urine Dipstick--Ancillary (enter results); Complete Time: 19:31 mw2 02/24 19:27 Order name: Urine --Ancillary (enter results); Complete Time: 19:31 mw2 02/24 18:17 Order name: Hip Left 2 View XRAY; Complete Time: 19:53 kb Administered Medications: 18:54 Drug: [place] (7.5 mg-325 mg) 1 tabs {Note: RASS:0.} Route: PO; tr5 02/25 01:51 Follow up: Response: Pain is decreased; RASS: Alert and Calm (0) tr5 Disposition: 07:13 Co-signature as Attending Physician, Faisal Mata MD. rn Disposition: 02/24/19 19:35 Discharged to Home. Impression: Pain in left hip. - Condition is Stable. - Discharge Instructions: Hip Pain. - Prescriptions for Cyclobenzaprine 10 mg Oral Tablet - take 1 tablet by ORAL route every 8 hours As needed; 21 tablet. - Medication Reconciliation Form, Thank You Letter, Antibiotic Education, Prescription Opioid Use, Work release form form. - Follow up: Emergency Department; When: As needed; Reason: Worsening of condition. Follow up: Private Physician; When: 2 - 3 days; Reason: Recheck today's complaints, Continuance of care, Re-evaluation by your physician. Signatures: Dispatcher [employer] Lydia Reyes, DYSLEXIA TEACHER-C DYSLEXIA TEACHER-Ckb aFisal Mata MD MD rn Rodriguez, Tommie, RN RN tr5 Corrections: (The following items were deleted from the chart) 02/24 19:56 19:35 02/24/2019 19:35 Discharged to Home. Impression: Pain in left hip. Condition is tr5 Stable. Forms are Medication Reconciliation Form, Thank You Letter, Antibiotic Education, Prescription Opioid Use. Follow up: Emergency Department; When: As needed; Reason: Worsening of condition. Follow up: Private Physician; When: 2 - 3 days; Reason: Recheck today's complaints, Continuance of care, Re-evaluation by your physician. kb
--- NOTE | 2019-02-24 19:36 | ER ---
Nurse's Notes [facility] Name: Tiffany Madrid Age: 24 yrs Sex: Female : 1995 Arrival Date: 02/24/2019 Time: 18:12 Bed 24 Private MD: Diagnosis: Pain in left hip Presentation: 02/24 18:13 Presenting complaint: EMS states: Pt was at work went she twisted and felt like she tr5 "pulled" something on her L hip. Pt reports she had a previous hairline fracture on that same side. Transition of care: patient was not received from another setting of care. Onset of symptoms was February 24, 2019. Risk Assessment: Do you want to hurt yourself or someone else? Patient reports no desire to harm self or others. Initial Sepsis Screen: Does the patient meet any 2 criteria? No. Patient's initial sepsis screen is negative. Does the patient have a suspected source of infection? No. Patient's initial sepsis screen is negative. Care prior to arrival: None. 18:13 Method Of Arrival: EMS: [facility] tr5 18:13 Acuity: KELSEY 3 tr5 Historical: - Allergies: 18:39 Lorazepam; tr5 18:39 meloxicam; tr5 18:39 Phenergan; tr5 18:39 Zofran; tr5 - Home Meds: 18:39 Azathioprine Oral [Active]; Metoprolol Tartrate 150 mg Oral 1 tab 2 times per day tr5 [Active]; - PMHx: 18:39 Anxiety; Asthma; Churg-Hudson Syndrome; Lupus; tr5 - Immunization history:: Adult Immunizations. - Social history:: Smoking status: Patient uses tobacco products, denies chronic smoking, but will smoke occasionally. - Ebola Screening: : No symptoms or risks identified at this time. Screenin:20 Abuse screen: Denies threats or abuse. Nutritional screening: No deficits noted. tr5 Tuberculosis screening: No symptoms or risk factors identified. Fall Risk None identified. Assessment: 18:20 General: Appears in no apparent distress. Behavior is calm, cooperative, appropriate tr5 for age. Pain: Complains of pain in pelvis. Neuro: Level of Consciousness is awake, alert, obeys commands, Oriented to person, place, time, Bird Raiser are equal bilaterally Moves all extremities. Cardiovascular: Heart tones present Capillary refill < 3 seconds Pulses are all present. Edema is absent. Respiratory: Airway is patent Respiratory effort is even, unlabored, Respiratory pattern is regular, symmetrical. GI: No signs and/or symptoms were reported involving the gastrointestinal system. : No signs and/or symptoms were reported regarding the genitourinary system. EENT: No signs and/or symptoms were reported regarding the EENT system. Derm: No signs and/or symptoms reported regarding the dermatologic system. Musculoskeletal: Reports pain in pelvis. Vital Signs: 18:41 BP 92 / 63; Pulse 92; Resp 17; Temp 98.1; Pulse Ox 100% ; tr5 ED Course: 18:12 Patient arrived in ED. tr5 18:13 Lydia Bates FNP-C [facility]. kb 18:13 Faisal Mata MD is Attending Physician. kb 18:15 Triage completed. tr5 18:20 Bed in low position. Call light in reach. tr5 18:41 Arm band placed on. tr5 18:45 Tyrone Yancey RN is Primary Nurse. tr5 19:37 Hip Left 2 View XRAY In Process Unspecified. EDMS 19:52 No provider procedures requiring assistance completed. Patient did not have IV access tr5 during this emergency room visit. Administered Medications: 18:54 Drug: [place] (7.5 mg-325 mg) 1 tabs {Note: RASS:0.} Route: PO; tr5 02/25 01:51 Follow up: Response: Pain is decreased; RASS: Alert and Calm (0) tr5 Outcome: 02/24 19:35 Discharge ordered by . kb 19:52 Discharged to home ambulatory. tr5 19:52 Condition: stable 19:52 Discharge instructions given to patient, family, Instructed on discharge instructions, follow up and referral plans. medication usage, Demonstrated understanding of instructions, follow-up care, medications. 19:56 Patient left the ED. tr5 Signatures: Dispatcher [employer] EDMS Lydia aBtes FNP-C FNP-Ckb Rodriguez, Tommie RN RN tr5
--- NOTE | 2019-02-24 19:46 | RAD REPORT ---
EXAM DESCRIPTION: RAD - Hip Left 2 View - 02/24/2019 7:37 pm CLINICAL HISTORY: PAIN COMPARISON: No comparisons FINDINGS: No acute fracture or dislocation seen. No radiographic evidence of AVN.
[2019-02-24 20:15] VITALS: BP 92/63; TEMP 98.1; O2SAT 100
== END 2019-02-24 19:56 | disposition home or self-care (01) ==
LOC: ER 18:00
DX: M25.552 Pain in left hip (principal); F41.9 Anxiety disorder, unspecified; J45.909 Unspecified asthma, uncomplicated; Z72.0 Tobacco use; Z88.6 Allergy status to analgesic agent; Z88.8 Allergy status to other drugs, medicaments and biological substances
CPT/HCPCS: 81003; 81025; 99283

== ENCOUNTER 2019-03-24 19:48 | Emergency (ER) | payer OTHER, BC ==
--- OUTSIDE RECORDS SUMMARY | 2019-03-24 19:51 | XMS REPORT ---
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 Problem Moderate persistent asthma with J45.41 Active acute exacerbation Problem Moderate asthma with exacerbation, J45.901 Active unspecified whether persistent Problem Asthma J45.909 Active Problem Edema R60.9 Active Problem Mild asthma with exacerbation, J45.901 Active unspecified whether persistent Problem Anxiety F41.9 Active Assessment Allergic rhinitis, unspecified J30.9 Active seasonality, unspecified trigger Problem Abnormal heart rhythm I49.9 Active Problem Shoulder impingement syndrome M75.40 Active Assessment Moderate persistent asthma with J45.41 Active acute exacerbation Problem Memory difficulties R41.3 Active Problem Migraines G43.909 Active Medications Medication Code Code Instructions Start End Status Dosage System Date Date Duexis [facility] 73236542182 800-26.6 MG Active 1 tablet Orally Three times a day Zantac [facility] 36663145179 150 MG Orally Active 1 tablet Once a day at bedtime Biotin [facility] 37841-56879 Active not defined Symbicort [facility] 18838966277 160-4.5 MCG/ACT Mar 12, Active 2 puffs Inhalation 2020 Twice a day Vitamin D-3 [facility] 86253865913 1000 UNIT Active 1 capsule Orally Once a day ProAir HFA [facility] 23658812155 108 (90 Base) Active 2 puffs as MCG/ACT needed Inhalation every 6 hrs Cymbalta [facility] 14106330671 20 MG Orally Active 1 capsule Twice a day Zinc Sulfate [facility] [address]-40 Active not defined PredniSONE [facility] 47328240419 20 MG Orally Mar 18, Mar 23, Active 2 tablet Once a day 2018 2018 Metoprolol ND 34736593775 100 MG Orally Active 1 tablet Tartrate Twice a day with food Albuterol [facility] 42682726157 108 (90 Base) Mar 05, Active 2 puffs as Sulfate MCG/ACT 2017 needed Inhalation every 6 hrs Azathioprine ND 64203460537 50 MG Orally Active Take 3 Every morning tabs Results Name Result Date Reference Range Unit Abnormality Flag STREP A RAPID ----Result Neg [id number] Summary Purpose eClinicalWorks Submission
--- OUTSIDE RECORDS SUMMARY | 2019-03-24 19:51 | XMS REPORT ---
:1995 Author Organization eClinicalWorks Care Team Providers Name Role Phone Angel Luis Mansoor Provider Role Unavailable Allergies No Known Allergies Problems Problem Type Condition Code Onset Dates [...] unspecified whether persistent Problem Anxiety F41.9 Active Problem Abnormal heart rhythm I49.9 Active Problem Shoulder impingement syndrome M75.40 Active Assessment Well adult on routine health check Z00.00 Active Problem Memory difficulties R41.3 Active Problem Migraines G43.909 Active Medications No Known Medications Results No Known Results Summary Purpose eClinicalWorks Submission
[2019-03-24] MEDS ORDERED: DIPHENHYDRAMINE 50 MG/ML VIAL ONE (20:23)
[2019-03-24] MEDS ORDERED: NA CHLORIDE 0.9% 1,000 ML ONE (20:23)
[2019-03-24] MEDS ORDERED: METHYLPREDNISOLONE 125 MG INJ ONE (20:23)
[2019-03-24 21:28] LABS: Absolute Lymphocytes (CBC) 2.3 K/uL (0.7-4.9); Basophils % 1.3 % (0-1.3); Hematocrit 42.2 % (36.0-45.0); Lymphocytes % 26.8 % (15.3-44.8); RBC Red Blood Cell Count 4.53 M/uL (3.86-4.86)
[2019-03-24 21:43] LABS: BUN Blood Urea Nitrogen 18 mg/dL (7-18); Bicarbonate 25 mmol/L (21-32); Glucose Level 89 mg/dL (74-106); Sodium Level 141 mmol/L (136-145); Troponin (Emerg Dept Use Only) < 0.02 ng/mL (0.0-0.045)
[2019-03-24] MEDS ORDERED: KETOROLAC 30 MG/ML INJ ONE (22:39)
--- NOTE | 2019-03-24 23:43 | ER ---
Nurse's Notes [facility] Name: Tiffany Madrid Age: 24 yrs Sex: Female : 1995 Arrival Date: 03/24/2019 Time: 19:51 Bed 17 Private MD: Diagnosis: Nausea and vomiting;Myalgia Presentation: 03/24 20:08 Presenting complaint: Patient states: Pt reports, back pain, chest pain, congestion and tl2 dizziness since yesterday, reports general malaise. Reports family members diagnosed with URI. Transition of care: patient was not received from another setting of care. Onset of symptoms was March 24, 2019. Risk Assessment: Do you want to hurt yourself or someone else? Patient reports no desire to harm self or others. Initial Sepsis Screen: Does the patient meet any 2 criteria? No. Patient's initial sepsis screen is negative. Does the patient have a suspected source of infection? No. Patient's initial sepsis screen is negative. Care prior to arrival: None. 20:08 Method Of Arrival: Ambulatory tl2 20:08 Acuity: KELSEY 3 tl2 Triage Assessment: 20:04 General: Appears in no apparent distress. comfortable. Respiratory: Onset: The cc3 symptoms/episode began/occurred today, the patient has mild shortness of breath. 20:10 Respiratory: Reports cough that is pain with cough. 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 - Social history:: Smoking status: Patient uses tobacco products, vaping. - Ebola Screening: : No symptoms or risks identified at this time. Screenin:11 Abuse screen: Denies threats or abuse. Nutritional screening: No deficits noted. tl2 Tuberculosis screening: No symptoms or risk factors identified. Fall Risk None identified. Assessment: 20:04 General: Appears in no apparent distress. comfortable, Behavior is calm, cooperative, cc3 appropriate for age. Pain: Complains of pain in back. Neuro: Level of Consciousness is awake, alert, obeys commands, Oriented to person, place, time, situation, Appropriate for age. Cardiovascular: Heart tones S1 S2 present Capillary refill < 3 seconds in bilateral fingers Patient's skin is warm and dry. Rhythm is sinus rhythm. Respiratory: Airway is patent Respiratory effort is even, unlabored, Respiratory pattern is regular, symmetrical, Breath sounds are clear bilaterally. GI: Abdomen is round non-distended, Bowel sounds present X 4 quads. Abd is soft and non tender X 4 quads. : No signs and/or symptoms were reported regarding the genitourinary system. EENT: No signs and/or symptoms were reported regarding the EENT system. Derm: Skin is intact, is healthy with good turgor, Skin is pink, warm \T\ dry. normal. Musculoskeletal: Circulation, motion, and sensation intact. Range of motion: intact in all extremities. 21:26 Reassessment: Patient appears in no apparent distress at this time. Patient and/or cc3 family updated on plan of care and expected duration. Pain level reassessed. Patient is alert, oriented x 3, equal unlabored respirations, skin warm/dry/pink. 22:18 Reassessment: Patient appears in no apparent distress at this time. Patient and/or cc3 family updated on plan of care and expected duration. Pain level reassessed. Patient is alert, oriented x 3, equal unlabored respirations, skin warm/dry/pink. 23:17 Reassessment: Patient appears in no apparent distress at this time. Patient and/or cc3 family updated on plan of care and expected duration. Pain level reassessed. Patient is alert, oriented x 3, equal unlabored respirations, skin warm/dry/pink. Patient denies pain at this time. Patient states feeling better. Patient states symptoms have improved. 03/25 00:00 Reassessment: Patient appears in no apparent distress at this time. Patient and/or cc3 family updated on plan of care and expected duration. Pain level reassessed. Patient is alert, oriented x 3, equal unlabored respirations, skin warm/dry/pink. KAYLEE Bates discharged the patient home, no prescription given. IV cannula removed and patient left ER vitally stable and ambulatory. NO valuables left in the patient's room. Patient denies pain at this time. Patient states feeling better. Patient states symptoms have improved. Vital Signs: 03/24 20:10 BP 111 / 90; Pulse 79; Resp 18; Temp 97.8(O); Pulse Ox 98% on R/A; Weight 102.06 kg; tl2 Height 5 ft. 10 in. (177.80 cm); Pain 8/10; 21:38 BP 108 / 61; Pulse 62; Resp 16 S; Pulse Ox 98% on R/A; cc3 22:15 BP 109 / 74; Pulse 61; Resp 15 S; Pulse Ox 100% on R/A; cc3 23:17 BP 108 / 75; Pulse 76; Resp 16 S; Pulse Ox 100% on R/A; Pain 3/10; cc3 03/25 00:00 BP 104 / 69; Pulse 63; Resp 15 S; Pulse Ox 97% on R/A; Pain 0/10; cc3 03/24 20:10 Body Mass Index 32.28 (102.06 kg, 177.80 cm) tl2 ED Course: 03/24 19:51 Patient arrived in ED. cf2 20:00 Lydia Bates [facility]NP-C [facility]. kb 20:00 Zeferino Flores MD is Attending Physician. kb 20:04 Yuliya Mendez is Primary Nurse. cc3 20:04 Patient has correct armband on for positive identification. Placed in gown. Bed in low cc3 position. Call light in reach. Side rails up X2. Pulse ox on. NIBP on. 20:09 Triage completed. tl2 20:10 Arm band placed on right wrist. tl2 20:39 Chest Pa And Lat (2 Views) XRAY In Process Unspecified. EDMS 21:00 Inserted saline lock: 20 gauge in right antecubital area, using aseptic technique. cc3 Blood collected. 03/25 00:00 No provider procedures requiring assistance completed. IV discontinued, intact, cc3 bleeding controlled, No redness/swelling at site. Pressure dressing applied. Administered Medications: 03/24 21:00 Drug: NS 0.9% 1000 ml Route: IV; Rate: 1000 ml; Site: right antecubital; cc3 22:30 Follow up: Response: No adverse reaction; IV Status: Completed infusion; IV Intake: cc3 1000ml 21:00 Drug: SOLU-Medrol 125 mg Route: IVP; Site: right antecubital; cc3 22:00 Follow up: Response: No adverse reaction cc3 21:05 Drug: Benadryl 12.5 mg Route: IVP; Site: right antecubital; cc3 21:30 Follow up: Response: No adverse reaction cc3 22:40 Drug: TORadol - Ketorolac 15 mg Route: IVP; Site: right antecubital; cc3 23:30 Follow up: Response: No adverse reaction; Pain is decreased cc3 Intake: 22:30 IV: 1000ml; Total: 1000ml. cc3 Outcome: 23:42 Discharge ordered by MD. shah 03/25 00:00 Discharged to home ambulatory. cc3 Condition: stable Discharge instructions given to patient, Instructed on discharge instructions, follow up and referral plans. Demonstrated understanding of instructions, follow-up care. 00:12 Patient left the ED. cc3 Signatures: Dispatcher [employer] EDMS Lydia Bates, SWITCHBOARD INSTALLER-C SWITCHBOARD INSTALLER-Lala Engel, RN RN tl2 Yuliya Mendez cc3 Darlene Johnson cf2 Corrections: (The following items were deleted from the chart) 03/24 23:20 23:17 BP 108 / 75; Pulse 76bpm; Resp 16bpm; Spontaneous; Pulse Ox 100% RA; cc3 cc3
--- NOTE | 2019-03-24 23:43 | EDPHYS ---
Physician Documentation [facility] Name: Tiffany Madrid Age: 24 yrs Sex: Female : 1995 Arrival Date: 03/24/2019 Time: 19:51 Bed 17 Private MD: ED Physician Zeferino Flores HPI: 03/24 22:28 This 24 yrs old Female presents to ER via Ambulatory with complaints of kb Breathing Difficulty, Chest Pain, Nausea, Dizziness. 22:37 The patient or guardian reports flu symptoms, arthralgias, myalgias. Onset: The kb symptoms/episode began/occurred this morning. Severity of symptoms: At their worst the symptoms were moderate, in the emergency department the symptoms are unchanged. Modifying factors: The symptoms are alleviated by nothing, the symptoms are aggravated by nothing. Associated signs and symptoms: Pertinent positives: nausea, vomiting, Pertinent negatives: chest pain, diarrhea, ear ache, fever, rhinorrhea, sore throat. The patient has not experienced similar symptoms in the past. The patient has not recently seen a physician. Pt reports body aches, nausea and vomiting today. 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 - Social history:: Smoking status: Patient uses tobacco products, vaping. - Ebola Screening: : No symptoms or risks identified at this time. ROS: 22:34 ENT: Negative for injury, pain, and discharge, Neck: Negative for injury, pain, and kb swelling, Cardiovascular: Negative for chest pain, palpitations, and edema, Respiratory: Negative for shortness of breath, cough, wheezing, and pleuritic chest pain, Back: Negative for injury and pain, : Negative for injury, bleeding, discharge, and swelling, MS/Extremity: Negative for injury and deformity, Skin: Negative for injury, rash, and discoloration, Neuro: Negative for headache, weakness, numbness, tingling, and seizure. 22:34 Constitutional: Positive for body aches, malaise. 22:34 Abdomen/GI: Positive for nausea and vomiting, Negative for abdominal pain, diarrhea, constipation, abdominal cramps, abdominal distension, anorexia. Exam: 22:37 Constitutional: This is a well developed, well nourished patient who is awake, alert, kb and in no acute distress. Head/Face: Normocephalic, atraumatic. ENT: Nares patent. No nasal discharge, no septal abnormalities noted. Tympanic membranes are normal and external auditory canals are clear. Oropharynx with no redness, swelling, or masses, exudates, or evidence of obstruction, uvula midline. Mucous membranes moist. Neck: Trachea midline, no thyromegaly or masses palpated, and no cervical lymphadenopathy. Supple, full range of motion without nuchal rigidity, or vertebral point tenderness. No Meningismus. Chest/axilla: Normal chest wall appearance and motion. Nontender with no deformity. No lesions are appreciated. Cardiovascular: Regular rate and rhythm with a normal S1 and S2. No gallops, murmurs, or rubs. Normal PMI, no JVD. No pulse deficits. Respiratory: Lungs have equal breath sounds bilaterally, clear to auscultation and percussion. No rales, rhonchi or wheezes noted. No increased work of breathing, no retractions or nasal flaring. Abdomen/GI: Soft, non-tender, with normal bowel sounds. No distension or tympany. No guarding or rebound. No evidence of tenderness throughout. Skin: Warm, dry with normal turgor. Normal color with no rashes, no lesions, and no evidence of cellulitis. MS/ Extremity: Pulses equal, no cyanosis. Neurovascular intact. Full, normal range of motion. Neuro: Awake and alert, GCS 15, oriented to person, place, time, and situation. Cranial nerves II-XII grossly intact. Motor strength 5/5 in all extremities. Sensory grossly intact. Cerebellar exam normal. Normal gait. Vital Signs: 20:10 BP 111 / 90; Pulse 79; Resp 18; Temp 97.8(O); Pulse Ox 98% on R/A; Weight 102.06 kg; tl2 Height 5 ft. 10 in. (177.80 cm); Pain 8/10; 21:38 BP 108 / 61; Pulse 62; Resp 16 S; Pulse Ox 98% on R/A; cc3 22:15 BP 109 / 74; Pulse 61; Resp 15 S; Pulse Ox 100% on R/A; cc3 23:17 BP 108 / 75; Pulse 76; Resp 16 S; Pulse Ox 100% on R/A; Pain 3/10; cc3 03/25 00:00 BP 104 / 69; Pulse 63; Resp 15 S; Pulse Ox 97% on R/A; Pain 0/10; cc3 03/24 20:10 Body Mass Index 32.28 (102.06 kg, 177.80 cm) tl2 MDM: 03/24 20:00 Patient medically screened. kb 22:37 Data reviewed: vital signs, nurses notes. Data interpreted: Pulse oximetry: on room air kb is 98 %. Interpretation: normal. Counseling: I had a detailed discussion with the patient and/or guardian regarding: the historical points, exam findings, and any diagnostic results supporting the discharge/admit diagnosis, lab results, radiology results, the need for outpatient follow up, a family practitioner, to return to the emergency department if symptoms worsen or persist or if there are any questions or concerns that arise at home. 03/24 20:17 Order name: Flu; Complete Time: 21:23 kb 03/24 20:17 Order name: CBC with Diff; Complete Time: 21:40 kb 03/24 20:17 Order name: Basic Metabolic Panel; Complete Time: 21:48 kb 03/24 20:19 Order name: Troponin (emerg Dept Use Only); Complete Time: 21:48 kb 03/24 23:06 Order name: Urine Dipstick--Ancillary (enter results); Complete Time: 23:59 cm6 03/24 23:06 Order name: Urine --Ancillary (enter results); Complete Time: 23:59 cm6 03/24 20:17 Order name: Chest Pa And Lat (2 Views) XRAY kb 03/24 20:19 Order name: EKG; Complete Time: 20:20 kb 03/24 20:19 Order name: EKG - Nurse/Tech; Complete Time: 21:18 kb 03/24 22:38 Order name: Urine Dipstick-Ancillary (obtain specimen); Complete Time: 22:54 kb Administered Medications: 21:00 Drug: NS 0.9% 1000 ml Route: IV; Rate: 1000 ml; Site: right antecubital; cc3 22:30 Follow up: Response: No adverse reaction; IV Status: Completed infusion; IV Intake: cc3 1000ml 21:00 Drug: SOLU-Medrol 125 mg Route: IVP; Site: right antecubital; cc3 22:00 Follow up: Response: No adverse reaction cc3 21:05 Drug: Benadryl 12.5 mg Route: IVP; Site: right antecubital; cc3 21:30 Follow up: Response: No adverse reaction cc3 22:40 Drug: TORadol - Ketorolac 15 mg Route: IVP; Site: right antecubital; cc3 23:30 Follow up: Response: No adverse reaction; Pain is decreased cc3 Disposition: 03/25 04:59 Co-signature as Attending Physician, Zeferino Flores MD I agree with the assessment and tw4 plan of care. Disposition: 03/24/19 23:42 Discharged to Home. Impression: Nausea and vomiting, Myalgia. - Condition is Stable. - Discharge Instructions: Nausea and Vomiting, Adult, [id number]-[id number], Viral Respiratory Infection, [id number]. - Medication Reconciliation Form, Thank You Letter, Antibiotic Education, Prescription Opioid Use, Work release form form. - Follow up: Emergency Department; When: As needed; Reason: Worsening of condition. Follow up: Private Physician; When: 2 - 3 days; Reason: Recheck today's complaints, Continuance of care, Re-evaluation by your physician. Signatures: Dispatcher [employer] Lydia Reyes, [employer]NOCKER-Lala Engel RN RN tl2 Zeferino Flores MD MD tw4 Yuliya Mendez cc3 Corrections: (The following items were deleted from the chart) 00:12 03/24 23:42 03/24/2019 23:42 Discharged to Home. Impression: Nausea and vomiting; cc3 Myalgia. Condition is Stable. Forms are Medication Reconciliation Form, Thank You Letter, Antibiotic Education, Prescription Opioid Use. Follow up: Emergency Department; When: As needed; Reason: Worsening of condition. Follow up: Private Physician; When: 2 - 3 days; Reason: Recheck today's complaints, Continuance of care, Re-evaluation by your physician. kb
[2019-03-24 23:53] LABS: Urine Blood NEGATIVE (NEG); Urine Glucose NEGATIVE (NEG); Urine Protein NEGATIVE (NEG)
[2019-03-25 00:33] VITALS: TEMP 97.8
[2019-03-25 00:36] VITALS: O2SAT 100
[2019-03-25 00:38] VITALS: BP 108/75
--- NOTE | 2019-03-25 08:41 | RAD REPORT ---
EXAM DESCRIPTION: RAD - Chest Pa And Lat (2 Views) - 03/24/2019 8:41 pm CLINICAL HISTORY: CHEST PAIN, difficulty breathing COMPARISON: January 21, 2019 TECHNIQUE: PA and lateral views of the chest were obtained. FINDINGS: The lungs are clear. Heart size is normal and central vasculature is within normal limit s. No pleural effusion or pneumothorax seen. No acute bony finding noted. No aortic abnormality. IMPRESSION: No acute cardiopulmonary process.
--- NOTE | 2019-03-25 09:34 | EKG ---
Test Date: 2019-03-24 Test Time: 20:32:24 Enterprise Solutions Architect: PAT MEASUREMENT RESULTS: Intervals: Rate: 65 ID: [id number] QRSD: 82 QT: 400 QTc: 416 [place]: P: -6 ID: [id number] QRS: 11 T: 38 INTERPRETIVE STATEMENTS: Normal sinus rhythm Normal ECG Compared to ECG 01/21/2019 23:19:04 Myocardial infarct finding no longer present Electronically Signed On 03-25-19 09:34:01 MULTIMEDIA TEACHER by Fernie Maguire
== END 2019-03-25 00:12 | disposition home or self-care (01) ==
LOC: ER 19:48
DX: M79.10 Myalgia, unspecified site (principal); F41.9 Anxiety disorder, unspecified; F17.290 Nicotine dependence, other tobacco product, uncomplicated; Z88.3 Allergy status to other anti-infective agents; Z88.6 Allergy status to analgesic agent; Z88.8 Allergy status to other drugs, medicaments and biological substances
CPT/HCPCS: 96361; 93005; 85025; 80048; 36415; 81025; 81003; 84484; 87804 ×2; 71046; 96375; 96374; 99284; J1200; J7030; J2930

== ENCOUNTER 2019-05-23 21:40 | Emergency (ER) | payer BC, OTHER ==
--- OUTSIDE RECORDS SUMMARY | 2019-05-23 21:41 | XMS REPORT ---
:1995 [facility] [address] [place] [address] [address] [place] [address] Care Team Providers Name Role Phone Unavailable Unavailable Unavailable Problems This patient has no known problems. Allergies, Adverse Reactions, Alerts This patient has no known allergies or adverse reactions. Medications This patient has no known medications. Results Test Description Test Time Test Comments Text Results Atomic Results Result Comments MM, U/S, 2019-04-18 Diagnostic workup per Addendum BeginsMRN#: BREAST, 09:27:00 radiologist?->YesReason for [id number] Exam BILATERAL Exam:->R92.8 ABNORMAL AMENDMENT: 04/18/2019 FINDING ON RADIOLOGICAL Gumaro Forte M.D. The EXAMINATION OF BREAST 02/27/[address] without contrast was available for correlation. Amended BI-RADS: 2 Benign Addendum EndsMRN#: [id number] - MM, U/S, BREAST, BILATERALULTRASOUND OF RIGHT BREAST: 04/17/2019No prior exams were available for comparison. Color flow and real-time ultrasound of the right breast were performed. Ultrasound of all four quadrants and the retroareolar breast was performed. Conn scale images of the real-time examination were reviewed. No suspicious abnormalities were seen sonographically in the right breast. Scattered subcentimeter benign cysts are present in the right breast. IMPRESSION: BENIGN The findings and recommendations for correaltion with the patient's reported recent chest MRI have been discussed with the patient. There is no sonographic evidence of malignancy. Gumaro Forte M.D. pth/:04/17/2019 11:24:17 Normal Exam Ultrasound BI-RADS: 2 Benign [id number]
--- OUTSIDE RECORDS SUMMARY | 2019-05-23 21:42 | XMS REPORT ---
[...] End Status Dosage System Date Date Duexis [facility] 83981016105 800-26.6 MG Active 1 tablet Orally Three times a day Zantac [facility] 74800832842 150 MG Orally Active 1 tablet Once a day at bedtime Biotin [facility] 23083-03067 Active not defined Symbicort [facility] 99351391725 160-4.5 MCG/ACT Mar 12, Active 2 puffs Inhalation 2020 Twice a day Vitamin D-3 [facility] 46309992602 1000 UNIT Active 1 capsule Orally Once a day ProAir HFA [facility] 43982820073 108 (90 Base) Active 2 puffs as MCG/ACT needed Inhalation every 6 hrs Cymbalta [facility] 85507910432 20 MG Orally Active 1 capsule Twice a day Zinc Sulfate [facility] [address]-87 Active not defined PredniSONE [facility] 30986954694 20 MG Orally Mar 18, Mar 23, Active 2 tablet Once a day 2018 2018 Metoprolol ND 54341805960 100 MG Orally Active 1 tablet Tartrate Twice a day with food Albuterol [facility] 01206921779 108 (90 Base) Mar 05, Active 2 puffs as Sulfate MCG/ACT 2017 needed Inhalation every 6 hrs Azathioprine ND 69003027066 50 MG Orally Active Take 3 Every morning tabs Results Name Result Date Reference Range Unit Abnormality Flag STREP A RAPID ----Result Neg [id number] Summary Purpose eClinicalWorks Submission
[2019-05-23] MEDS ORDERED: NA CHLORIDE 0.9% 1,000 ML ONE (22:54)
[2019-05-23] MEDS ORDERED: MORPHINE 4 MG/ML SYR ONE (22:54)
[2019-05-23] MEDS ORDERED: METOCLOPRAMIDE 10 MG/2mL INJ ONE (22:54)
[2019-05-23] MEDS ORDERED: FAMOTIDINE 20 MG/2 ML VIAL IV ONE (22:54)
[2019-05-23 23:07] LABS: Absolute Lymphocytes (CBC) 1.5 K/uL (0.7-4.9); Basophils % 1.1 % (0-1.3); Hematocrit 40.5 % (36.0-45.0); Lymphocytes % 18.7 % (15.3-44.8); MPV 10.6 fL (7.6-11.3); RBC Red Blood Cell Count 4.42 M/uL (3.86-4.86)
[2019-05-23 23:08] LABS: Protime INR 1.11
[2019-05-23 23:25] LABS: ALT/SGPT 25 U/L (12-78); AST/SGOT 12 U/L (15-37); Albumin 3.9 g/dL (3.4-5.0); Alkaline Phosphatase 66 U/L (45-117); BUN Blood Urea Nitrogen 11 mg/dL (7-18); Bicarbonate 25 mmol/L (21-32); Bilirubin Direct 0.2 mg/dL (0-0.2); Bilirubin Total 0.8 mg/dL (0.2-1.0); Glucose Level 85 mg/dL (74-106); Lipase 137 U/L (73-393); Magnesium 2.3 mg/dL (1.8-2.4); NT PRO-BNP 174 pg/mL (<125); Potassium 3.5 mmol/L (3.5-5.1); Sodium Level 142 mmol/L (136-145); Troponin (Emerg Dept Use Only) < 0.02 ng/mL (0.0-0.045)
[2019-05-23 23:58] LABS: Urine Blood NEGATIVE (NEG); Urine Glucose NEGATIVE (NEG); Urine Protein NEGATIVE (NEG); Urine Specific Gravity >1.030 (1.005-1.030)
[2019-05-24] MEDS ORDERED: DIPHENHYDRAMINE 50 MG/ML VIAL ONE (00:01)
[2019-05-24] MEDS ORDERED: ASPIRIN 81 MG CHEWABLE TABLET ONE (00:31)
--- NOTE | 2019-05-24 01:25 | ER ---
Nurse's Notes [facility] Name: Tiffany Madrid Age: 24 yrs Sex: Female : 1995 Arrival Date: 05/23/2019 Time: 21:41 Bed 14 Private MD: Diagnosis: Low back pain;Other chest pain Presentation: 05/23 21:58 Presenting complaint: Patient states: Arguing with someone about 2 hours ago and began lp1 to feel chest pain, short of breath, states tightness in chest; "I feel like I'm having anxiety, or like a panic attack"; States having a heart condition. Transition of care: patient was not received from another setting of care. Onset of symptoms was May 23, 2019. Risk Assessment: Do you want to hurt yourself or someone else? Patient reports no desire to harm self or others. Initial Sepsis Screen: Does the patient meet any 2 criteria? No. Patient's initial sepsis screen is negative. Does the patient have a suspected source of infection? No. Patient's initial sepsis screen is negative. Care prior to arrival: None. 21:58 Method Of Arrival: Wheelchair lp1 21:58 Acuity: KELSEY 3 lp1 CORE BLOWER: 21:59 LMP 05/10/2019 lp1 Historical: - Allergies: 22:01 Lorazepam; lp1 22:01 Zofran; lp1 22:01 Phenergan; lp1 22:01 Azithromycin; lp1 22:01 meloxicam; lp1 - Home Meds: 22:01 Metoprolol Tartrate 150 mg Oral 1 tab 2 times per day [Active]; Azathioprine Oral lp1 [Active]; - PMHx: 22:01 Anxiety; Asthma; Churg-Hudson Syndrome; Lupus; lp1 - PSHx: 22:01 None; lp1 - Immunization history:: Adult Immunizations up to date. - Social history:: Smoking status: Patient denies any tobacco usage or history of. - Ebola Screening: : No symptoms or risks identified at this time. - Family history:: not pertinent. Screenin:01 Abuse screen: Denies threats or abuse. Denies injuries from another. Nutritional lp1 screening: No deficits noted. Tuberculosis screening: No symptoms or risk factors identified. 23:15 Fall Risk None identified. ea Assessment: 23:15 General: Appears uncomfortable, Behavior is anxious. Pain: Complains of pain in chest. ea Neuro: Level of Consciousness is awake, alert, obeys commands, Oriented to person, place, time, situation. Cardiovascular: Patient's skin is warm and dry. Respiratory: Airway is patent Respiratory effort is even, unlabored, Respiratory pattern is regular, symmetrical. Derm: Skin is pink, warm \\T\\ dry. 23:40 Reassessment: Patient and/or family updated on plan of care and expected duration. Pain ea level reassessed. Patient is alert, oriented x 3, equal unlabored respirations, skin warm/dry/pink. 05/24 00:45 Reassessment: Patient and/or family updated on plan of care and expected duration. Pain ea level reassessed. Pt resting with eyes closed, respirations even and unlabored, chest expansions even and symmetrical. No s/s of pain or discomfort noted at this time. 01:15 Reassessment: Pt resting with eyes closed, respirations even and unlabored, chest ea expansions even and symmetrical. No s/s of pain or discomfort noted at this time. 02:38 Reassessment: Patient and/or family updated on plan of care and expected duration. Pain ea level reassessed. Patient is alert, oriented x 3, equal unlabored respirations, skin warm/dry/pink. Discharge instruction given to patient, verbalized the understanding of instruction]. Pt left ED ambulatory accompanied by family. Vital Signs: 05/23 21:59 BP 108 / 73; Pulse 100; Resp 18; Temp 98(O); Pulse Ox 98% on R/A; Weight 92.99 kg; lp1 Height 5 ft. 11 in. (180.34 cm); Pain 8/10; 22:28 BP 96 / 74; Pulse 72; Resp 18; Pulse Ox 99% on R/A; ea 05/24 00:29 BP 98 / 62; Pulse 63; Resp 18; Temp 97.6; Pulse Ox 99% ; ea 02:15 BP 97 / 61; Pulse 67; Resp 18; Pulse Ox 98% on R/A; ea 02:35 BP 100 / 62; Pulse 60; Resp 18; Temp 97.7; Pulse Ox 99% ; Pain 0/10; ea 05/23 21:59 Body Mass Index 28.59 (92.99 kg, 180.34 cm) lp1 ED Course: 05/23 21:41 Patient arrived in ED. cl3 21:59 Triage completed. lp1 21:59 Arm band placed on. lp1 22:28 Vikki Frye, ALEX is Primary Nurse. ea 22:29 Demarco Valentine MD is Attending Physician. [facility] 22:48 Radiology exam delayed due to lab results not completed at this time. test vm2 not completed at this time. IV insertion attempt and/or patient not having appropriate IV at this time. 22:50 Inserted saline lock: 20 gauge in right antecubital area, using aseptic technique. wh Blood collected. 23:15 Patient has correct armband on for positive identification. Bed in low position. Call ea light in reach. Side rails up X2. 23:17 XRAY Chest (1 view) In Process Unspecified. EDMS 05/24 00:46 CT Aorta for Dissection In Process Unspecified. EDMS 01:10 CT completed. Patient tolerated procedure well. Patient moved to CT via stretcher. Patient moved back from CT. 02:35 IV discontinued, intact, bleeding controlled, No redness/swelling at site. Pressure ea dressing applied. 02:40 No provider procedures requiring assistance completed. ea Administered Medications: 05/23 23:00 Drug: NS 0.9% 1000 ml Route: IV; Rate: 1 bolus; Site: right antecubital; ea 05/24 02:42 Follow up: Response: No adverse reaction; IV Status: Completed infusion; IV Intake: ea 1000ml 05/23 23:02 Drug: Pepcid 20 mg Route: IVP; Site: right antecubital; ea 05/24 00:00 Follow up: Response: No adverse reaction ea 05/23 23:05 Drug: morphine 2 mg Route: IVP; Site: right antecubital; ea 23:18 Drug: Reglan 10 mg Route: IVP; Site: right antecubital; ea 05/24 00:00 Follow up: Response: No adverse reaction ea 00:00 Drug: morphine 2 mg Route: IVP; Site: right antecubital; ea 02:13 Follow up: Response: No adverse reaction ea 00:01 Drug: Benadryl 25 mg Route: IVP; Site: right antecubital; ea 02:12 Follow up: Response: No adverse reaction ea 01:33 Drug: Aspirin 81 mg Route: PO; ea 02:12 Follow up: Response: No adverse reaction ea Intake: 02:42 IV: 1000ml; Total: 1000ml. ea Outcome: 01:25 Discharge ordered by . saman 02:39 Discharged to home ambulatory, with family. sridevi 02:39 Condition: stable 02:39 Discharge instructions given to patient, Instructed on discharge instructions, follow up and referral plans. medication usage, Demonstrated understanding of instructions, follow-up care, medications. 02:57 Patient left the ED. Signatures: Dispatcher [employer] EDMS Demarco Valentine MD MD cha Hagler, Kimberly Pimentel, RN RN lp1 Deonna Mccoy 2 Vikki Frye RN RN Rahel Crump Charde cl3
--- NOTE | 2019-05-24 01:26 | EDPHYS ---
Physician Documentation [facility] Name: Tiffany Madrid Age: 24 yrs Sex: Female : 1995 Arrival Date: 05/23/2019 Time: 21:41 Bed 14 Private MD: LU Physician Demarco Valentine HPI: 05/23 22:44 This 24 yrs old Female presents to ER via Wheelchair with complaints of Back saman Pain, Chest Pain. 22:44 The patient presents with pain that is acute, with no known mechanism of injury. The saman symptoms are located in the left scapular area, right scapular area and thoracic area. Onset: The symptoms/episode began/occurred 2 day(s) ago. The pain does not radiate. Associated signs and symptoms: Pertinent positives: chest pain. The problem was sustained from unknown cause. Severity of symptoms: At their worst the symptoms were moderate, in the emergency department the symptoms are unchanged. The patient has experienced similar episodes in the past, several times. 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 - Social history:: Smoking status: Patient denies any tobacco usage or history of. - Ebola Screening: : No symptoms or risks identified at this time. - Family history:: not pertinent. ROS: 22:44 Constitutional: Negative for fever, chills, and weight loss, Eyes: Negative for injury, saman pain, redness, and discharge, ENT: Negative for injury, pain, and discharge, Neck: Negative for injury, pain, and swelling, Abdomen/GI: Negative for abdominal pain, nausea, vomiting, diarrhea, and constipation, : Negative for injury, bleeding, discharge, and swelling, MS/Extremity: Negative for injury and deformity, Skin: Negative for injury, rash, and discoloration, Neuro: Negative for headache, weakness, numbness, tingling, and seizure, Psych: Negative for depression, anxiety, suicide ideation, homicidal ideation, and hallucinations, Allergy/Immunology: Negative for hives, rash, and allergies, Endocrine: Negative for neck swelling, polydipsia, polyuria, polyphagia, and marked weight changes, Hematologic/Lymphatic: Negative for swollen nodes, abnormal bleeding, and unusual bruising. 22:44 Cardiovascular: Positive for chest pain. 22:44 Respiratory: Positive for shortness of breath. 22:44 Back: Positive for pain at rest. Exam: 22:44 Constitutional: This is a well developed, well nourished patient who is awake, alert, saman and in no acute distress. Head/Face: Normocephalic, atraumatic. Eyes: Pupils equal round and reactive to light, extra-ocular motions intact. Lids and lashes normal. Conjunctiva and sclera are non-icteric and not injected. Cornea within normal limits. Periorbital areas with no swelling, redness, or edema. ENT: Nares patent. No nasal discharge, no septal abnormalities noted. Tympanic membranes are normal and external auditory canals are clear. Oropharynx with no redness, swelling, or masses, exudates, or evidence of obstruction, uvula midline. Mucous membranes moist. Neck: Trachea midline, no thyromegaly or masses palpated, and no cervical lymphadenopathy. Supple, full range of motion without nuchal rigidity, or vertebral point tenderness. No Meningismus. Chest/axilla: Normal chest wall appearance and motion. Nontender with no deformity. No lesions are appreciated. Respiratory: Lungs have equal breath sounds bilaterally, clear to auscultation and percussion. No rales, rhonchi or wheezes noted. No increased work of breathing, no retractions or nasal flaring. Abdomen/GI: Soft, non-tender, with normal bowel sounds. No distension or tympany. No guarding or rebound. No evidence of tenderness throughout. Back: No spinal tenderness. No costovertebral tenderness. Full range of motion. Skin: Warm, dry with normal turgor. Normal color with no rashes, no lesions, and no evidence of cellulitis. MS/ Extremity: Pulses equal, no cyanosis. Neurovascular intact. Full, normal range of motion. Neuro: Awake and alert, GCS 15, oriented to person, place, time, and situation. Cranial nerves II-XII grossly intact. Motor strength 5/5 in all extremities. Sensory grossly intact. Cerebellar exam normal. Normal gait. Psych: Awake, alert, with orientation to person, place and time. Behavior, mood, and affect are within normal limits. 22:44 Cardiovascular: Rate: tachycardic, Rhythm: regular, Pulses: Pulses are 4+ in left popliteal artery, bilateral radial, brachial, femoral, popliteal, posterior tibial and and dorsalis pedis arteries.. Heart sounds: normal, Edema: is not appreciated, JVD: is not appreciated. Vital Signs: 21:59 BP 108 / 73; Pulse 100; Resp 18; Temp 98(O); Pulse Ox 98% on R/A; Weight 92.99 kg; lp1 Height 5 ft. 11 in. (180.34 cm); Pain 8/10; 22:28 BP 96 / 74; Pulse 72; Resp 18; Pulse Ox 99% on R/A; ea 05/24 00:29 BP 98 / 62; Pulse 63; Resp 18; Temp 97.6; Pulse Ox 99% ; ea 02:15 BP 97 / 61; Pulse 67; Resp 18; Pulse Ox 98% on R/A; ea 02:35 BP 100 / 62; Pulse 60; Resp 18; Temp 97.7; Pulse Ox 99% ; Pain 0/10; ea 05/23 21:59 Body Mass Index 28.59 (92.99 kg, 180.34 cm) lp1 MDM: 05/23 22:29 Patient medically screened. [facility] 22:46 Data reviewed: vital signs, nurses notes, lab test result(s), EKG, radiologic studies, [facility] CT scan, plain films. 05/23 22:43 Order name: Basic Metabolic Panel; Complete Time: 00:14 [facility] 05/23 22:43 Order name: CBC with Diff; Complete Time: 23:12 [facility] 05/23 22:43 Order name: LFT's; Complete Time: 00:14 [facility] 05/23 22:43 Order name: Magnesium; Complete Time: 00:14 [facility] 05/23 22:43 Order name: NT PRO-BNP; Complete Time: 00:14 [facility] 05/23 22:43 Order name: PT-INR; Complete Time: 23:12 [facility] 05/23 22:43 Order name: Troponin (emerg Dept Use Only); Complete Time: 00:14 [facility] 05/23 22:43 Order name: XRAY Chest (1 view) [facility] 05/23 22:43 Order name: Lipase; Complete Time: 00:14 [facility] 05/23 22:43 Order name: Urine Culture [facility] 05/23 22:43 Order name: CT Aorta for Dissection [facility] 05/23 23:51 Order name: Urine Dipstick--Ancillary (enter results); Complete Time: 00:14 [facility] 05/23 23:51 Order name: Urine --Ancillary (enter results); Complete Time: 00:14 [facility] 05/24 01:14 Order name: Troponin (emerg Dept Use Only): now; Complete Time: 02:35 [facility] 05/23 22:43 Order name: EKG; Complete Time: 22:45 [facility] 05/23 22:43 Order name: Cardiac monitoring; Complete Time: 22:55 [facility] 05/23 22:43 Order name: EKG - Nurse/Tech; Complete Time: 22:55 [facility] 05/23 22:43 Order name: IV Saline Lock; Complete Time: 22:55 [facility] 05/23 22:43 Order name: Labs collected and sent; Complete Time: 22:55 [facility] 05/23 22:43 Order name: O2 Per Protocol; Complete Time: 22:55 [facility] 05/23 22:43 Order name: O2 Sat Monitoring; Complete Time: 22:55 [facility] 05/23 22:43 Order name: Urine Dipstick-Ancillary (obtain specimen); Complete Time: 23:55 [facility] 05/23 22:43 Order name: Urine Test (obtain specimen); Complete Time: 23:54 [facility] Administered Medications: 23:00 Drug: NS 0.9% 1000 ml Route: IV; Rate: 1 bolus; Site: right antecubital; 05/24 02:42 Follow up: Response: No adverse reaction; IV Status: Completed infusion; IV Intake: ea 1000ml 05/23 23:02 Drug: Pepcid 20 mg Route: IVP; Site: right antecubital; ea 05/24 00:00 Follow up: Response: No adverse reaction 05/23 23:05 Drug: morphine 2 mg Route: IVP; Site: right antecubital; ea 23:18 Drug: Reglan 10 mg Route: IVP; Site: right antecubital; ea 05/24 00:00 Follow up: Response: No adverse reaction ea 00:00 Drug: morphine 2 mg Route: IVP; Site: right antecubital; ea 02:13 Follow up: Response: No adverse reaction ea 00:01 Drug: Benadryl 25 mg Route: IVP; Site: right antecubital; ea 02:12 Follow up: Response: No adverse reaction ea 01:33 Drug: Aspirin 81 mg Route: PO; ea 02:12 Follow up: Response: No adverse reaction ea Disposition: 05/24/19 01:25 Discharged to Home. Impression: Low back pain, Other chest pain. - Condition is Stable. - Discharge Instructions: Back Pain, Adult, Nonspecific Chest Pain, Musculoskeletal Pain, Nonspecific Chest Pain, [id number], Aspirin and Your Heart. - Prescriptions for Ibuprofen 600 mg Oral Tablet - take 1 tablet by ORAL route every 6 hours As needed take with food; 20 tablet. - Medication Reconciliation Form, Thank You Letter, Antibiotic Education, Prescription Opioid Use form. - Work release form (05/24/19 14:32). eb - Follow up: Private Physician; When: 2 - 3 days; Reason: Recheck today's complaints, Continuance of care, Re-evaluation by your physician. - Problem is new. - Symptoms have improved. Signatures: Dispatcher [employer] EDMS Demarco Valentine MD MD cha Pena, Laura, RN RN lp1 Vikki Frye RN RN ea [place]alo, Winsy Grisel [place] Corrections: (The following items were deleted from the chart) 02:57 01:25 05/24/2019 01:25 Discharged to Home. Impression: Low back pain; Other chest pain. Condition is Stable. Discharge Instructions: Back Pain, Adult, Nonspecific Chest Pain, Musculoskeletal Pain, Nonspecific Chest Pain, [id number]. Prescriptions for Ibuprofen 600 mg Oral Tablet - take 1 tablet by ORAL route every 6 hours As needed take with food; 20 tablet. and Forms are Medication Reconciliation Form, Thank You Letter, Antibiotic Education, Prescription Opioid Use. Follow up: Private Physician; When: 2 - 3 days; Reason: Recheck today's complaints, Continuance of care, Re-evaluation by your physician. Problem is new. Symptoms have improved. saman
[2019-05-24 03:12] VITALS: BP 100/62; TEMP 97.7; O2SAT 99
--- NOTE | 2019-05-24 08:35 | EKG ---
Test Date: 2019-05-23 Test Time: 22:06:17 [employer] Sales Consultant: YAMILET MEASUREMENT RESULTS: Intervals: Rate: 81 AK: 134 QRSD: 78 QT: 368 QTc: 427 [place]: P: 0 AK: 134 QRS: 10 T: 28 INTERPRETIVE STATEMENTS: Normal sinus rhythm with sinus arrhythmia Low voltage QRS Nonspecific ST and T wave abnormality Abnormal ECG Compared to ECG 03/24/2019 20:32:24 Low QRS voltage now present ST (T wave) deviation now present Electronically Signed On 05-24-19 08:34:22 REWINDER OPERATOR by Fernie Maguire
--- NOTE | 2019-05-24 08:46 | RAD REPORT ---
EXAM DESCRIPTION: RAD - Chest Single View - 05/23/2019 11:15 pm CLINICAL HISTORY: CHEST PAIN Chest pain. COMPARISON: Chest Pa And Lat (2 Views) dated 03/24/2019; Chest Single View dated 01/21/2019; Chest Pa And Lat (2 Views) dated 01/16/2019; Chest Single View dated 12/23/2018; Angio Aorta For Dissection da teri 05/23/2019 FINDINGS: Portable technique limits examination quality. The lungs are grossly clear. The heart is normal in size. No displaced fractures. IMPRESSION: No acute intrathoracic process suspected.
--- NOTE | 2019-05-24 10:12 | RAD REPORT ---
EXAM DESCRIPTION: CT Angiography Chest and CT Abdomen and Pelvis With Intravenous Contrast CLINICAL HISTORY: The patient is 24 years old and is Female; Chest pain;Dissection;PE TECHNIQUE: Axial computed tomographic angiography images of the chest and axial computed tomography images of the abdomen and pelvis with intravenous contrast. This CT exam was performed using one or more of the following dose reduction techniques: automated exposure control, adjustment of the mA and/or kV according to patient size, and/or use of iterative reconstruction technique. MIP reconstructed images were created and reviewed. DLP: 1438 mGy*cm COMPARISON: Chest radiograph of the same day. FINDINGS: CHEST: AORTA: No acute findings. No aortic aneurysm. No dissection. PULMONARY ARTERIES: Unremarkable as visualized. No pulmonary embolism is identified. GREAT VESSELS OF AORTIC ARCH: No acute findings. No dissection. No arterial occlusion or signi ficant stenosis. LUNGS: Lungs are clear. No mass. No consolidation. PLEURAL SPACE: Unremarkable. No significant effusion. No pneumothorax. HEART: Unremarkable. No cardiomegaly. No significant pericardial effusion. THYROID: Visualized thyroid is normal. ABDOMEN: LIVER: Unremarkable. No mass. GALLBLADDER AND BILE DUCTS: Unremarkable. No calcified stones. No ductal dilation. PANCREAS: Unremarkable. No ductal dilation. No mass. SPLEEN: Unremarkable. No splenomegaly. ADRENALS: Unremarkable. No mass. KIDNEYS AND URETERS: Unremarkable. No hydronephrosis. No solid mass. STOMACH AND BOWEL: Unremarkable. No obstruction. No mucosal thickening. PELVIS: APPENDIX: The appendix is seen and is within normal limits. BLADDER: Bladder is decompressed. REPRODUCTIVE: Bilateral ovarian cysts measuring up to 2.4 cm on the right. CHEST, ABDOMEN and PELVIS: INTRAPERITONEAL SPACE: Unremarkable. No significant fluid collection. No free air. BONES/JOINTS: No acute fracture. No dislocation. SOFT TISSUES: Unremarkable. LYMPH NODES: Unremarkable. No enlarged lymph nodes. IMPRESSION: 1. No acute aortic abnormality or pulmonary embolism. 2. No acute intrathoracic, abdominal or pelvic abnormality. 3. Bilateral ovarian cysts measuring up to 2.4 cm on the right. No follow-up imaging is recommended . Reference: US recommendations based on Radiology 2010 Dec;256(3):943-54; CT/MR recommendations base d on J Am Pavel Radiol 2013;10:675-681. Electronically signed by: Sekou Blue DO 05/24/2019 1:06 AM MANAGER [employer] Due to temporary technical issues with the PACS/Fluency reporting system, reports are being signed by the in house radiologist as a courtesy to ensure prompt reporting. The interpreting radiologist is f ully responsible for the content of the report.
== END 2019-05-24 02:57 | disposition home or self-care (01) ==
LOC: ER 21:40
DX: R07.89 Other chest pain (principal); F41.9 Anxiety disorder, unspecified; J45.909 Unspecified asthma, uncomplicated; Z88.1 Allergy status to other antibiotic agents; Z88.6 Allergy status to analgesic agent; Z88.8 Allergy status to other drugs, medicaments and biological substances
CPT/HCPCS: 96361; 93005; 87088; 85025; 87086; 80048; 36415; 83735; 81025; 85610; 80076; 81003; 84484 ×2; 83690; 83880; 71275; 74175; 71045; 96375; 96374; 99284; Q9967; J2765; J7030

== ENCOUNTER 2019-09-02 12:14 | Emergency (ER) | payer BC ==
--- OUTSIDE RECORDS SUMMARY | 2019-09-02 12:17 | XMS REPORT ---
:1995 Author Organization [facility] t Address [address] [place] [id number] Care Team Providers Name Role Phone Unavailable Unavailable Unavailable Problems Condition Condition Condition Status Onset Resolution Last Treatin g Comments Name Details Category Date Date Treatment Clinician Date Abnormal Abnormal Problem Active heart heart rhythm rhythm Memory Memory Problem Active difficultie difficultie s s Shoulder Shoulder Problem Active impingement impingement syndrome syndrome Asthma Asthma Problem Active Edema Edema Problem Active Anxiety Anxiety Problem Active Rotator Rotator Problem Active cuff cuff impingement impingement syndrome syndrome Migraines Migraines Problem Active Depression Depression Problem Active Muscle pain Muscle pain Problem Active Mild asthma Mild asthma Problem Active with with exacerbatio exacerbatio n, n, unspecified unspecified whether whether persistent persistent Moderate Moderate Problem Active persistent persistent asthma with asthma with acute acute exacerbatio exacerbatio n n 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 Clinician (SIG) Name Name PredniSONE PredniSONE 2018-05 2019- No Mansoor 2 tablet 18 03-23 Hein 00:00: 00:00 00 :00 Albuterol Albuterol 2017-05 Yes Mansoor 2 puffs as Sulfate Sulfate 1-05 Hein needed 00:00: 00 Symbicort Symbicort 2019- No Mansoor 2 puffs 12-11 Hein 00:00: 00:00 00 :00 Biotin Biotin Yes Mansoor not Hein defined Zantac Zantac Yes Mansoor 1 tablet Hein at bedtime Vitamin D-3 Vitamin D-3 Yes Mansoor 1 capsu le Hein Duexis Duexis Yes Mansoor 1 tablet Hein Zinc Zinc Yes Mansoor not Sulfate Sulfate Hein defined ProAir HFA ProAir HFA Yes Mansoor 2 puffs a s Hein needed Metoprolol Metoprolol Yes Mansoor 1 tablet Tartrate Tartrate Hein with food Cymbalta Cymbalta Yes Mansoor 1 capsule Hein Azathioprin Azathioprin Yes Mansoor Take 3 e e Hein tabs Encounters Start End Encounter Admission Attending Care Care Encounter Date/Time Date/Time Type Type Clinicians Facility Department ID 2019-08-22 2019-08-22 [id number] 14:02:00 14:02:00 [facility] 2019-08-08 2019-08-08 [id number] 11:03:00 11:03:00 [facility] 2019-03-18 2019-03-18 [facility] [id number] 13:45:00 13:45:00 [facility] 2019-02-20 2019-02-20 [facility] [id number] 09:43:00 09:43:00 [facility] 2019-01-28 2019-01-28 [id number] 14:00:00 14:00:00 [facility] 2018-11-21 2018-11-21 [facility] [id number] 11:00:00 11:00:00 [facility] 2018-09-04 2018-09-04 [facility] [id number] 08:00:00 08:00:00 [facility] 2018-08-16 2018-08-16 [facility] [id number] 11:30:00 11:30:00 [facility] 2018-08-07 2018-08-07 [facility] [id number] 10:45:00 10:45:00 [facility] 2018-01-29 2018-01-29 [facility] [id number] 13:30:00 13:30:00 [facility] 2017-12-11 2017-12-11 [facility] [id number] 10:30:00 10:30:00 [facility] 2017-10-02 2017-10-02 [facility] [id number] 15:40:00 15:40:00 [facility] 2017-09-21 2017-09-21 [facility] [id number] 09:45:00 09:45:00 [facility] 2017-08-30 2017-08-30 [facility] [id number] 09:08:00 09:08:00 [facility] 2017-08-15 2017-08-15 [facility] [id number] 09:59:00 09:59:00 [facility] 2017-07-31 2017-07-31 [facility] [id number] 10:57:00 10:57:00 [facility] 2017-07-20 2017-07-20 [facility] [id number] 09:00:00 09:00:00 [facility] Results Test Description Test Time Test Comments Text Results Atomic Results Result Comments MM, U/S, 2019-04-18 Diagnostic workup per Addendum BeginsMRN# : BREAST, 09:27:00 radiologist?->YesReason for [id number] l Exam BILATERAL Exam:->R92.8 ABNORMAL AMENDMENT: 04/18/20 19 FINDING ON RADIOLOGICAL Kosta Galindo. The EXAMINATION OF BREAST 02/27/[address] without contrast was available for correlation. Amended BI-RADS: 2 Benign Addendum EndsMRN#: [id number] - MM, U/S, BREAST, BILATERALULTRASOUND OF RIGHT [...] There is no sonographic evidence of malignancy. Luke Forte M.D. pth/:04/17/2019 11:24:17 Normal Exam Ultrasound BI-RADS: 2 Benign [id number]
--- OUTSIDE RECORDS SUMMARY | 2019-09-02 12:18 | XMS REPORT ---
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
--- OUTSIDE RECORDS SUMMARY | 2019-09-02 12:18 | XMS REPORT ---
:1995 Author Organization [employer] Care Team Providers Name Role Phone Angel Luis Mansoor Provider Role Unavailable Allergies, Adverse Reactions, Alerts [...] End Status Dosage System Date Date Duexis [facility] 88580900667 800-26.6 MG Active 1 tablet Orally Three times a day Zantac [facility] 71759315649 150 MG Orally Active 1 tabl et Once a day at bedtime Biotin [facility] 27676-51234 Active not defined Symbicort [facility] 21470342333 160-4.5 MCG/ACT Mar 12, Active 2 puffs Inhalation 2020 Twice a day Vitamin D-[address] [facility] 86505123713 1000 UNIT Active 1 caps ule Orally Once a day ProAir HFA [facility] 70720138615 108 (90 Base) Active 2 p uffs as MCG/ACT needed Inhalation every [address] [facility] 25606421155 20 MG Orally Active 1 caps ule Twice a day Zinc Sulfate [facility] [address]-23 Active not defined PredniSONE [facility] 14952203178 20 MG Orally Mar 18, Mar 23, Active 2 ta blet Once a day [address] [facility] 01548047058 100 MG Orally Active 1 t ablet Tartrate Twice a day with food Albuterol [facility] 06001931979 108 (90 Base) Mar 05, Active 2 pu ffs as Sulfate MCG/ACT 2017 needed Inhalation every [address] [facility] 13463031937 50 MG Orally Active Ta ke 3 Every morning tabs Results Name Result Date Reference Range Unit Abnormali ty Flag STREP A RAPID ----Result Neg [id number] Summary Purpose [employer]ClinicalWorks Submission
[2019-09-02 13:16] LABS: Absolute Lymphocytes (CBC) 1.5 K/uL (0.7-4.9); Basophils % 1.2 % (0-1.3); Hematocrit 42.6 % (36.0-45.0); Lymphocytes % 19.5 % (15.3-44.8); MPV 10.7 fL (7.6-11.3); RBC Red Blood Cell Count 4.54 M/uL (3.86-4.86)
[2019-09-02] MEDS ORDERED: NA CHLORIDE 0.9% 1,000 ML ONE (13:20)
[2019-09-02] MEDS ORDERED: dexAMETHasone 10 MG/ML VIAL ONE (13:20)
[2019-09-02] MEDS ORDERED: FENTANYL CITR 100 MCG/2 ML ONE (13:20)
[2019-09-02 13:41] LABS: C-Reactive Protein 5.41 mg/L (<3.00)
--- NOTE | 2019-09-02 14:08 | EDPHYS ---
Physician Documentation [facility] Name: Tiffany Madrid Age: 24 yrs Sex: Female : 1995 Arrival Date: 09/02/2019 Time: 12:17 Bed 18 Private MD: Laila Heinh ED Physician Faisal Mata HPI: 09/01 13:32 This 24 yrs old Female presents to ER via Ambulatory with complaints of Chest snw Tightness. 13:32 Onset: The symptoms/episode began/occurred 6 week(s) ago, and became persistent. snw Associated signs and symptoms: Pertinent positives: wheezing. Modifying factors: The patient symptoms are alleviated by nothing. The patient has experienced similar episodes in the past, chronically. unable to see secondary to CoVid19, will have telemed visit next week. Has been out of steroids and inhalers. Historical: - Allergies: 12:42 Azithromycin; ll1 12:42 meloxicam; ll1 12:42 Zofran; ll1 12:42 Phenergan; ll1 12:42 Lorazepam; ll1 - PMHx: 12:42 Anxiety; Churg-Hudson Syndrome; Asthma; Lupus; ll1 - PSHx: 12:42 None; ll1 - Social history:: Smoking status: Patient reports the use of cigarette tobacco products, denies chronic smoking, but will smoke occasionally, Patient uses alcohol, only on a social basis. street drugs, marijuana. ROS: 13:30 Constitutional: Negative for fever, chills, and weight loss, Eyes: Negative for injury, snw pain, redness, and discharge, ENT: Negative for injury, pain, and discharge, Neck: Negative for injury, pain, and swelling, Cardiovascular: Negative for chest pain, palpitations, and edema, Abdomen/GI: Negative for abdominal pain, nausea, vomiting, diarrhea, and constipation, Back: Negative for injury and pain, : Negative for injury, bleeding, discharge, and swelling, MS/Extremity: Negative for injury and deformity, Skin: Negative for injury, rash, and discoloration, Neuro: Negative for headache, weakness, numbness, tingling, and seizure, Psych: Negative for depression, anxiety, suicide ideation, homicidal ideation, and hallucinations. 13:30 Respiratory: Positive for pleurisy, of the anterior aspect of right upper chest, shortness of breath, at rest. wheezing. Exam: 13:30 Constitutional: This is a well developed, well nourished patient who is awake, alert, snw and in no acute distress. Head/Face: Normocephalic, atraumatic. Eyes: Pupils equal round and reactive to light, extra-ocular motions intact. Lids and lashes normal. Conjunctiva and sclera are non-icteric and not injected. Cornea within normal limits. Periorbital areas with no swelling, redness, or edema. ENT: Nares patent. No nasal discharge, no septal abnormalities noted. Tympanic membranes are normal and external auditory canals are clear. Oropharynx with no redness, swelling, or masses, exudates, or evidence of obstruction, uvula midline. Mucous membranes moist. Neck: Trachea midline, no thyromegaly or masses palpated, and no cervical lymphadenopathy. Supple, full range of motion without nuchal rigidity, or vertebral point tenderness. No Meningismus. Chest/axilla: Normal chest wall appearance and motion. Nontender with no deformity. No lesions are appreciated. Cardiovascular: Regular rate and rhythm with a normal S1 and S2. No gallops, murmurs, or rubs. Normal PMI, no JVD. No pulse deficits. mild to moderate pain to right chest Respiratory: Lungs have equal breath sounds bilaterally, clear to auscultation and percussion. No rales, rhonchi or wheezes noted. mild increased work of breathing, no retractions or nasal flaring. Abdomen/GI: Soft, non-tender, with normal bowel sounds. No distension or tympany. No guarding or rebound. No evidence of tenderness throughout. Back: No spinal tenderness. No costovertebral tenderness. Full range of motion. MS/ Extremity: Pulses equal, no cyanosis. Neurovascular intact. Full, normal range of motion. Neuro: Awake and alert, GCS 15, oriented to person, place, time, and situation. Cranial nerves II-XII grossly intact. Motor strength 5/5 in all extremities. Sensory grossly intact. Cerebellar exam normal. Normal gait. Psych: Awake, alert, with orientation to person, place and time. Behavior, mood, and affect are within normal limits. Vital Signs: 12:40 BP 104 / 65; Pulse 57; Resp 18; Temp 98.5; Pulse Ox 100% ; Pain 6/10; ll1 14:14 BP 114 / 64; Pulse 53; Resp 16; Temp 97.9; Pulse Ox 100% on R/A; ph MDM: 12:49 Patient medically screened. snw 14:09 Data reviewed: vital signs, nurses notes. Data interpreted: Pulse oximetry: on room air snw is 100 %. Interpretation: normal. Counseling: I had a detailed discussion with the patient and/or guardian regarding: the historical points, exam findings, and any diagnostic results supporting the discharge/admit diagnosis, lab results, the need for outpatient follow up, to return to the emergency department if symptoms worsen or persist or if there are any questions or concerns that arise at home. Response to treatment: the patient's symptoms have markedly improved after treatment. Special discussion: Based on the patient's history, exam, and Dx evaluation, there is no indication for emergent intervention or inpatient Tx. It is understood by the patient/guardian that if the Sx's persist or worsen they need to return immediately for re-evaluation. Based on the history and exam findings, there is no indication for further emergent testing or inpatient evaluation. I discussed with the patient/guardian the need to see the primary care provider for further evaluation of the symptoms. I discussed with the patient/guardian the need to see the time cycle operator for further evaluation of the symptoms. I discussed with the patient/guardian the need to see the machine lay out worker for further evaluation of the symptoms. 09/01 12:56 Order name: CBC with Diff; Complete Time: 13:35 snw 09/01 12:56 Order name: Chem 7; Complete Time: 13:51 snw 09/01 12:56 Order name: CRP; Complete Time: 13:51 snw 09/01 12:56 Order name: ESR; Complete Time: 13:35 snw 09/01 12:56 Order name: Lactate; Complete Time: 13:51 snw Administered Medications: 13:25 Drug: NS 0.9% 1000 ml Route: IV; Rate: 1 bolus; Site: right forearm; ph 14:13 Follow up: Response: No adverse reaction; IV Status: Completed infusion ph 13:25 Drug: fentaNYL (PF) 25 mcg Route: IVP; Site: right forearm; ph 14:13 Follow up: Response: No adverse reaction ph 13:26 Drug: Decadron - Dexamethasone 10 mg Route: IVP; Site: right forearm; ph 14:13 Follow up: Response: No adverse reaction ph Disposition: 14:38 Co-signature as Attending Physician, Faisal Mata MD. rn Disposition: 09/02/19 14:07 Discharged to Home. Impression: Wheezing, Chest pain, unspecified. - Condition is Stable. - Discharge Instructions: Nonspecific Chest Pain, Shortness of Breath. - Prescriptions for Prednisone 20 mg Oral Tablet - take 2 tablet by ORAL route once daily for 5 days; 10 tablet. Albuterol Sulfate 90 mcg/actuation Inhalation - inhale 1-2 puff by INHALATION route every 4-6 hours One for home and one for work; 2 Inhaler. - Work release form, Medication Reconciliation Form, Thank You Letter, Antibiotic Education, Prescription Opioid Use form. - Follow up: Mansoor Hein DO; When: 2 - 3 days; Reason: Recheck today's complaints, Continuance of care, Re-evaluation by your physician. Follow up: Emergency Department; When: As needed; Reason: Worsening of condition. Signatures: Dispatcher [employer] EDMS Loretta Virgen, ASSEMBLER TESTER-C ASSEMBLER TESTER-Csnw Faisal Mata MD MD rn Jen Woods RN RN Cindy Abdullahi RN RN ll1 Corrections: (The following items were deleted from the chart) 14:37 14:07 09/02/2019 14:07 Discharged to Home. Impression: Wheezing; Chest pain, ph unspecified. Condition is Stable. Forms are Medication Reconciliation Form, Thank You Letter, Antibiotic Education, Prescription Opioid Use. Follow up: Mansoor Hein; When: 2 - 3 days; Reason: Recheck today's complaints, Continuance of care, Re-evaluation by your physician. Follow up: Emergency Department; When: As needed; Reason: Worsening of condition. snw
--- NOTE | 2019-09-02 14:08 | ER ---
Nurse's Notes [facility] Name: Tiffany Madrid Age: 24 yrs Sex: Female : 1995 Arrival Date: 09/02/2019 Time: 12:17 Bed 18 Private MD: Mansoor Hein Diagnosis: Wheezing;Chest pain, unspecified Presentation: 09/01 12:40 Chief complaint: Patient states: Chest tightness with constant wheezing for 6 weeks. ll1 Out of inhaler/steroids, unable to see physician. No fever. Coronavirus screen: Proceed with normal triage. Patient denies a cough. Patient reports shortness of breath or difficulty breathing. Patient denies measured and/or subjective temperature greater than 100.4F prior to today's visit. Patient denies travel on a cruise ship or to a country the [facility] [place] currently [place] as an affected area. Patient denies contact with known and/or suspected case of COVID-19. Ebola Screen: Patient denies travel to an Ebola-affected area in the 21 days before illness onset. Initial Sepsis Screen: Does the patient meet any 2 criteria? No. Patient's initial sepsis screen is negative. Does the patient have a suspected source of infection? No. Patient's initial sepsis screen is negative. Risk Assessment: Do you want to hurt yourself or someone else? Patient reports no desire to harm self or others. Onset of symptoms was July 31, 2019. 12:40 Method Of Arrival: Ambulatory ll1 12:40 Acuity: KELSEY 3 ll1 Historical: - Allergies: 12:42 Azithromycin; ll1 12:42 meloxicam; ll1 12:42 Zofran; ll1 12:42 Phenergan; ll1 12:42 Lorazepam; ll1 - PMHx: 12:42 Anxiety; Churg-Hudson Syndrome; Asthma; Lupus; ll1 - PSHx: 12:42 None; ll1 - Social history:: Smoking status: Patient reports the use of cigarette tobacco products, denies chronic smoking, but will smoke occasionally, Patient uses alcohol, only on a social basis. street drugs, marijuana. Screenin:12 Abuse screen: Denies threats or abuse. Denies injuries from another. Nutritional ph screening: No deficits noted. Tuberculosis screening: No symptoms or risk factors identified. Fall Risk None identified. Assessment: 13:30 General: Appears in no apparent distress. comfortable, well groomed, Behavior is calm, ph cooperative, appropriate for age, Denies fever, feeling ill. Pain: Complains of pain in anterior aspect of right upper chest Pain does not radiate. Pain began " weeks ago". Neuro: Level of Consciousness is awake, alert, obeys commands, Oriented to person, place, time, situation. Cardiovascular: Reports chest pain, Chest pain is located in right anterior chest wall. Respiratory: Reports shortness of breath pain with respiration Airway is patent Respiratory effort is even, unlabored, Respiratory pattern is regular, symmetrical. GI: No signs and/or symptoms were reported involving the gastrointestinal system. Derm: Skin is intact, is healthy with good turgor, Skin is pink, warm \\T\\ dry. Vital Signs: 12:40 BP 104 / 65; Pulse 57; Resp 18; Temp 98.5; Pulse Ox 100% ; Pain 6/10; ll1 14:14 BP 114 / 64; Pulse 53; Resp 16; Temp 97.9; Pulse Ox 100% on R/A; ph ED Course: 12:17 Patient arrived in ED. mr 12:17 Cecilio Hein MD is Private Physician. mr 12:17 Mansoor Hein DO is Private Physician. mr 12:41 Triage completed. ll1 12:43 Arm band placed on Patient placed in an exam room, on a stretcher. ll1 12:46 Loretta Virgen FNP-C is [facility]. snw 12:46 Faisal Mata MD is Attending Physician. snw 12:56 Jen Woods, RN is Primary Nurse. ph 13:11 Initial lab(s) drawn, by me, sent to lab. Inserted saline lock: 20 gauge in right jp3 antecubital area, using aseptic technique. Blood collected. Patient maintains SpO2 saturation greater than 95% on room air. 13:12 Bed in low position. Call light in reach. Verbal reassurance given. Pulse ox on. NIBP jp3 on. 14:06 Mansoor Hein DO is Referral Physician. snw 14:13 No provider procedures requiring assistance completed. ph 14:37 IV discontinued, intact, bleeding controlled, No redness/swelling at site. Pressure ph dressing applied. Administered Medications: 13:25 Drug: NS 0.9% 1000 ml Route: IV; Rate: 1 bolus; Site: right forearm; ph 14:13 Follow up: Response: No adverse reaction; IV Status: Completed infusion ph 13:25 Drug: fentaNYL (PF) 25 mcg Route: IVP; Site: right forearm; ph 14:13 Follow up: Response: No adverse reaction ph 13:26 Drug: Decadron - Dexamethasone 10 mg Route: IVP; Site: right forearm; ph 14:13 Follow up: Response: No adverse reaction ph Outcome: 14:07 Discharge ordered by MD. isaacs 14:36 Discharged to home ambulatory. ph 14:36 Condition: good 14:36 Discharge instructions given to patient, Instructed on discharge instructions, follow up and referral plans. medication usage, Demonstrated understanding of instructions, follow-up care, medications, Prescriptions given X 2. 14:37 Patient left the ED. ph Signatures: Loretta Virgen, RECONCILER-C RECONCILER-Csnw Enriqueta Olivarez Patricia, RN RN Bairon Watkins jp3 Cindy Abdullahi RN RN ll1
[2019-09-02 14:49] VITALS: O2SAT 100
[2019-09-02 14:50] VITALS: BP 114/64; TEMP 97.9
== END 2019-09-02 14:37 | disposition home or self-care (01) ==
LOC: ER 12:14
DX: R07.9 Chest pain, unspecified (principal); J45.909 Unspecified asthma, uncomplicated; Z72.0 Tobacco use; Z88.1 Allergy status to other antibiotic agents; Z88.8 Allergy status to other drugs, medicaments and biological substances
CPT/HCPCS: 85025; 80048; 36415; 83605; 85652; 86140; J3010; J1100; J7030; 96361; 96374; 96375; 99284

== ENCOUNTER 2019-09-17 17:17 | Emergency (ER) | payer BC ==
--- OUTSIDE RECORDS SUMMARY | 2019-09-17 17:18 | XMS REPORT | Clinical Summary ---
:1995 Author Organization [facility] Address [address] [place] [address] Care Team Providers Name Role Phone Pcp Primary Care Provider Unavailable Allergies Not on File Medications Not on file Active Problems Not on file Encounters Date Type Specialty Care Team Description 04/17/2019 Hospital Encounter [facility] Preciado Abnor mal finding on Eliud radiological examination of breast 04/03/2019 Outside Orders Central Scheduling Polo Preciado Abn ormal finding on Eliud radiological examination of breast (Primary Dx) after 09/16/2018 Social History Tobacco Use Types Packs/Day Years Used Date Never Assessed Sex Assigned at Date Recorded Not on file Job Start Date Occupation Industry Not on file Not on file Not on file Travel History Travel Start Travel End No recent travel history available. Last Filed Vital Signs Not on file Plan of Treatment Not on file Procedures Procedure Name Priority Date/Time Associated Diagnosis Comme nts US BREAST BILATERAL Routine 04/17/2019 10:53 Abnormal finding on Results for this AM [facility] radiological procedure are i n examination of breast the re sults section. after 09/16/2018 Results US Breast Bilateral (04/17/2019 10:53 AM [facility]OOK [facility]) Specimen Narrative Performed At Addendum Begins GE RIS Normal Exam AMENDMENT: 04/18/2019 Luke Forte M.D. The 02/27/[address] without contrast w as available for correlation. Amended BI-RADS: 2 Benign Addendum Ends #[id number] - MM, U/S, BREAST, BILATERAL ULTRASOUND OF RIGHT BREAST: 04/17/2019 No prior exams were available for compar rosie. Color flow and real-time ultrasound of t he right breast were performed. Ultrasound of all four quadra nts and the retroareolar breast was performed. Conn scale images of the real-time examination were reviewed. No suspicious abnormalities were seen so nographically in the right breast.Scattered subcentimeter benig n cysts are present in the right breast. IMPRESSION: BENIGN The findings and recommendations for cor realtion with the patient's reported recent chest MRI have been disc ussed with the patient. There is no sonographic evidence of shadi gnancy. Luke Forte M.D. pth/:04/17/2019 11:24:17 Normal Exam Ultrasound BI-RADS: 2 Benign [id number] Procedure Note Interface, External Ris In - 04/18/2019 12:23 PM BOOK SE[facility]ER Addendum Begins Normal Exam AMENDMENT: 04/18/2019 Baltazar Galindo The 02/27/[address] without contrast w as available for correlation. Amended BI-RADS: 2 Benign Addendum Ends #[id number] - MM, U/S, BREAST, BILATERAL ULTRASOUND OF RIGHT BREAST: 04/17/2019 No prior exams were available for compar rosie. Color flow and real-time ultrasound of t he right breast were performed. Ultrasound of all four quadra nts and the retroareolar breast was performed. Conn scale images of the real-time examination were reviewed. No suspicious abnormalities were seen so nographically in the right breast. Scattered subcentimeter benign cysts are present in the right breast. IMPRESSION: BENIGN The findings and recommendations for cor realtion with the patient's reported recent chest MRI have been disc ussed with the patient. There is no sonographic evidence of shadi gnancy. Luke Forte M.D. pth/:04/17/2019 11:24:17 Normal Exam Ultrasound BI-RADS: 2 Benign [id number] Performing Organization Address City/State/Zipcode Phone Number GE RIS after 09/16/2018 Insurance Payer Benefit Plan / Subscriber ID Type Phone Address Group BLUE CROSS/BLUE BCBS OS xxxxxxxxxxxxxxx PPO [phone] [address] [employer]IELD [place]/PP[place] [address]
--- OUTSIDE RECORDS SUMMARY | 2019-09-17 17:19 | XMS REPORT ---
[...] End Status Dosage System Date Date Duexis [facility] 82414705661 800-26.6 MG Active 1 tablet Orally Three times a day Zantac [facility] 38690771948 150 MG Orally Active 1 tabl et Once a day at bedtime Biotin [facility] [address] Active not defined Symbicort [facility] 89065440313 160-4.5 MCG/ACT Mar 12, Active 2 puffs Inhalation 2020 Twice a day Vitamin D-3 [facility] 99261577366 1000 UNIT Active 1 caps ule Orally Once a day ProAir HFA [facility] 10357059928 108 (90 Base) Active 2 p uffs as MCG/ACT needed Inhalation every 6 hrs Cymbalta [facility] 83647724141 20 MG Orally Active 1 caps ule Twice a day Zinc Sulfate [facility] [address]-90 Active not defined PredniSONE [facility] 95026432437 20 MG Orally Mar 18, Mar 23, Active 2 ta blet Once a day 2018 2018 Metoprolol [facility] 90289789844 100 MG Orally Active 1 t ablet Tartrate Twice a day with food Albuterol [facility] 09963506009 108 (90 Base) Mar 05, Active 2 pu ffs as Sulfate MCG/ACT 2017 needed Inhalation every 6 hrs Azathioprine [facility] 48700970012 50 MG Orally Active Ta ke 3 Every morning tabs Results Name Result Date Reference Range Unit Abnormali ty Flag STREP A RAPID ----Result Neg [id number] Summary Purpose eClinicalWorks Submission
--- OUTSIDE RECORDS SUMMARY | 2019-09-17 17:19 | XMS REPORT ---
:1995 Author Organization [facility] t Address [address] [place] [address] Dr. [address] [place] [id number] Care Team Providers Name Role Phone Jada TONG Attending Clinician Leon Preciado MD Attending Clinician Problems Condition Condition Condition Status Onset Resolution Last Treating Co mments Source Name Details Category Date Date Treatment Clinician Date Abnormal Abnormal Problem [facility] Memory Memory Problem Active [facility] difficulti difficulti P[facility] kes - es es [facility] Shoulder Shoulder Problem [facility] impingemen impingemen [place] kes - t syndrome t syndrome Me [facility]ia l [facility] Asthma Asthma Problem Active [facility] Edema Edema Problem Active [facility] Anxiety Anxiety Problem [facility] Rotator Rotator Problem Active [facility] cuff cuff [facility] - impingemen impingemen Me moria t syndrome t syndrome l [facility] Migraines Migraines Problem Active [facility] Depression Depression Problem [facility] Muscle Muscle Problem Active [facility] pain pain [facility] Mild Mild Problem Active [facility] asthma asthma [facility] - with with Memoria exacerbati exacerbati l on, on, Outpati unspecifie unspecifie en t d whether d whether Clin ics persistent persistent Moderate Moderate Problem Active [facility] persistent persistent Pricilla kes - asthma asthma Memoria with acute with acute l exacerbati exacerbati Ou tpati on on ent Clinics 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 Memori a with lung with lung l involvemen involvemen Ou tpati t t ent Clinics Allergies, Adverse Reactions, Alerts Allergy Allergy Status Severity Reaction(s) Onset Inactive Treating Comm ents Source Name Type Date Date Clinician Terifran Adverse Active Info Not [facility] Reaction Available [facility] Phenerga Adverse Active Info Not [facility] n Reaction Available [facility] Meloxica Adverse Active Info Not [facility] m Reaction Available [facility] Medications Ordered Filled Start Stop Current Ordering Indication Dosage Frequency Signature Comments Components Source Medication Medication Date Date Medication? Clinician (SIG) Name Name PredniSONE PredniSONE 2018-05 2019- No [place] [address] [facility] -18 03-23 Hein [facility] - 00:00: 00:00 Memoria 00 :00 l [facility] Clinics Albuterol Albuterol 2017-05 Yes [place] [address] [facility] Sulfate Sulfate 1-05 Hein needed [facility] - 00:[facility]: Memoria 00 l [facility] ent [facility] Symbicort Symbicort 2019- No [place] [address] [facility] 8-03-12 Hein [facility] - 00:[facility]: 00:00 Memoria 00 :00 l [facility] ent [facility] Biotin Biotin Yes [facility] not [facility] Hein defined [facility] Zantac Zantac Yes [place] 1 tablet [facility] at bedtime [facility] Vitamin D-3 Vitamin D-3 Yes [place] [address] [facility] Hein [facility] Duexis Duexis Yes [facility] 1 tablet [facility] Zinc Zinc Yes [facility] not [facility] Sulfate Sulfate Hein defined [facility] ProAir HFA ProAir HFA Yes [place] [address] [facility] Hein needed [facility] Metoprolol Metoprolol Yes [place] [address] [facility] [address] Tartrate Tartrate Hein with food L ukes - Memoria l [facility] Clinics Cymbalta Cymbalta Yes [place] [address] [facility] Hein [facility] Azathioprin Azathioprin Yes [place] Take [address] [facility] e e Hein tabs [facility] ent [facility] Procedures This patient has no known procedures. Encounters Start End Encounter Admission Attending Care Care Encounter Source Date/Time Date/Time Type Type Clinicians Facility Department ID 2019-09-06 2019-09-06 Office Pranay Elias [facility] [id number] 10:14:55 10:54:55 Visit AMBULATOR [id number] Y [id number] 2019-08-22 2019-08-22 [facility] [id number] [facility] 14:02:00 14:02:00 t [place] [facility] ent Clinics 2019-08-08 2019-08-08 [facility] [id number] [facility] 11:03:00 11:03:00 t [place] [facility] 2019-03-18 2019-03-18 [facility] [id number] 13:45:00 13:45:00 t [facility] 2019-02-20 2019-02-20 [facility] [id number] [address] 09:43:00 09:43:00 t [place] [facility] 2019-01-30 2019-01-30 Office JANINA Preciado [id number] 08:24:11 09:27:15 Visit Polo Quintero AMBULATOR [id number] Y [id number] 2019-01-28 2019-01-28 [facility] [id number] 14:00:00 14:00:00 t [place] [facility] 2018-11-21 2018-11-21 [facility] [id number] [facility] 11:00:00 11:00:00 t [place] l Medicine Outpati ent Clinics 2018-09-04 2018-09-04 [facility] [id number] 08:00:00 08:00:[address] [place] [address] - [address] [facility] Medicine l Medicine Outpati ent Clinics 2018-08-16 2018-08-16 [facility] [id number] [address] 11:30:00 11:30:[address] Luke s - Drive [facility] l Medicine Outpati ent Clinics 2018-08-07 2018-08-07 [facility] [id number] 10:45:00 10:45:[address] Luke s - Drive [facility] l Medicine Outpati ent Clinics 2018-01-29 2018-01-29 [facility] [id number] [address] 13:30:00 13:30:00 [place] CEL[place]SCI Luke s - Drive [facility] l Medicine Outpati ent Clinics 2017-12-11 2017-12-11 [facility] [id number] 10:30:00 10:30:00 [place] CEL[place]I Luke s - Drive [facility] Medicine l Medicine Outpati ent Clinics 2017-10-02 2017-10-02 [facility] [id number] 15:40:00 15:40:00 [place] CEL[place]SCI Luke s - Drive [facility] l Medicine Outpati ent Clinics 2017-09-21 2017-09-21 [facility] [id number] 09:45:00 09:45:[address] Luke s - Drive [facility] Medicine Medicine Outpati ent Clinics 2017-08-30 2017-08-30 [facility] [id number] 09:08:00 09:08:[address] Luke s - Drive [facility] Medicine l Medicine Outpati ent Clinics 2017-08-15 2017-08-15 [facility] [id number] 09:59:00 09:59:[address] Luke s - Drive [facility] Medicine l Medicine Outpati ent Clinics 2017-07-31 2017-07-31 [facility] [id number] 10:57:00 10:57:00 [facility] ent [facility] 2017-07-20 2017-07-20 Outpatient Jessee Carlos [id number] 09:00:00 09:00:00 [facility] Results Test Description Test Time Test Comments Results Result Sourc e Comments MM, U/S, BREAST, 2019-03-31 Diagnostic workup Addendum BeginsMRN#: [id number] Exam 09:27:00 radiologist?->Yes AMENDMENT: 04/18/2019 Reason for Luke Forte M.D. The Exam:->R92.8 02/27/[address] ABNORMAL FINDING without contrast was ON RADIOLOGICAL available for EXAMINATION OF correlation. Amended BREAST BI-RADS: 2 Benign Addendum EndsMRN#: [id number] - MM, U/S, BREAST, BILATERALULTRASOUND OF RIGHT [...] 11:24:17 Normal Exam Ultrasound BI-RADS: 2 Benign [id number]
--- OUTSIDE RECORDS SUMMARY | 2019-09-17 17:20 | XMS REPORT | Summary of Care ---
:1995 Author Organization [facility] [place] [address] Care Team Providers Name Role Phone Ihsan Primary Care Provider Med Unavailable Reason for Visit Reason Comments Initial Visit Hx of asthma, seen at the ER but was unable to get a breathing treatment unless she was adm itted, denies use of otc antihistamines, takes metoprolol x5 years, d enies use in past month Encounter Details Date Type Department Care Team Description 09/06/2019 [facility] Visit [facility] Pranay Elias MD Initial Visit (Hx of Medicine Allergy [address] asthma, seen at the [facility] ER but was unable to [address] get a breathing [place], [place] [address] treatment unless she [id number] was admitted, denies [phone] use of ot c antihistamines, takes metoprolol x5 y ears, denies use in p ast month) Allergies Active Allergy Reactions Severity Noted Date Comments Azithromycin Nausea Only High 01/30/2019 Lorazepam 06/08/2015 Other reaction( s): Other - See com ments Meloxicam 06/07/2017 Other reaction( s): Other: See Comm ents Low blood press ure Ondansetron Nausea And Vomiting Low 01/24/2015 Benzyl Alc-Promethazine 01/01/2016 Promethazine 02/17/2015 pardoxical reac tion Other reaction( s): Other - See com ments pardoxical reac tion Low blood press ure Fd&C Yellow #6 Al Nausea And Vomiting 01/01/2016 Cummings-Ondansetron documented as of this encounter (statuses as of 09/09/2019) Medications Medication Sig Dispensed Refills Start End Date Status Date metoprolol 150 mg two 0 Active (TOPROL-XL) 50 MG XL times daily. 6 tabletIndications: Churg-Hudson syndrome (HCCode), Cardiomyopathy (HCCode), Encounter for monitoring azathioprine therapy azathioprine Take 3 Tabs by 90 Tab 4 Ac tive (IMURAN) 50 MG mouth daily. 9 tabletIndications: Churg-Hudson syndrome (HCCode), Encounter for monitoring azathioprine therapy, Need for influenza vaccination, Eosinophilic myocarditis, Neck pain, Chronic midline thoracic back pain albuterol 108 (90 360 mcg by 0 A ctive base) mcg/act Inhalation 6 inhaler route. PROAIR HFA 108 (90 0 A ctive Base) MCG/ACT 0 inhaler tiotropium (SPIRIVA) Inhale 1 Cap 90 Cap 1 Active 18 MCG inhalation by mouth 0 capsule daily. montelukast Take 1 Tab by 90 Tab 1 Acti ve (SINGULAIR) 10 MG mouth daily. 0 tablet Cholecalciferol 1.25 Take 50,000 5 Tab 2 Active MG (23206 UT) TABS Units by mouth 0 every 7 days. fexofenadine Take 1 Tab by 180 Tab 1 Act namrata (CARA) 180 MG mouth two 0 tablet times daily. fluticasone 1 [place] by 16 g 2 Active (FLONASE) 50 MCG/ACT Each Nostril 0 nasal spray route two times daily. Budesonide-Formotero Inhale 2 Puffs 1 Inhaler 3 Active l Fumarate by mouth two 0 (SYMBICORT) 160-4.5 times daily. MCG/ACT AERO Multiple Take by 0 09/06/19 Discontinu ed Vitamins-Minerals mouth. 20 (* Therapy (MULTIVITAMIN ADULT completed) OR)Indications: Churg-Hudson syndrome (HCCode), Cardiomyopathy (HCCode), Encounter for monitoring azathioprine therapy Biotin (BIOTIN 5000) Take by 0 09/06/19 Discontinued 5 MG mouth. 20 (*Therapy CAPSIndications: com pleted) Churg-Hudson syndrome (HCCode), Cardiomyopathy (HCCode), Encounter for monitoring azathioprine therapy Cholecalciferol Take by 0 09/06/19 Disc ontinued (VITAMIN D3) 2000 mouth. 20 (* Therapy UNITS completed) CAPSIndications: Churg-Hudson syndrome (HCCode), Cardiomyopathy (HCCode), Encounter for monitoring azathioprine therapy [id number] Take by 0 09/06/19 Discontinued NC ORIndications: mouth. 3 pills 20 (*Therapy Churg-Hudson daily. comple teri) syndrome (HCCode), Cardiomyopathy (HCCode), Encounter for monitoring azathioprine therapy duloxetine Take 1 Cap by 30 Cap 5 09/06/19 Disco ntinued (CYMBALTA) 30 MG mouth daily. 9 20 (*Therapy capsule completed) predniSONE TAKE ONE (1) 0 09/06/19 Discon tinued (DELTASONE) 10 MG TABLET(S) BY 9 20 (*Therapy tablet MOUTH ONCE A complet ed) DAY. amoxicillin (AMOXIL) TAKE ONE (1) 0 Discontinued 875 MG tablet TABLET(S) BY 20 (*T herapy MOUTH EVERY complete d) TWELVE HOURS FOR 10 DAYS. documented as of this encounter (statuses as of 09/09/2019) Active Problems Problem Noted Date Neck pain 01/17/2018 Back pain 01/17/2018 Knee pain, bilateral 01/04/2017 Hip pain, bilateral 01/04/2017 Mild intermittent asthma without complication 07/14/19 17 Insomnia 07/13/2016 ANALY (obstructive sleep apnea) 06/20/2016 Last Assessment & Plan: discussed sleep study result and treatment options Pt interested in CPAP, will defer to Dr Hook to order Obesity (BMI 30-39.9) 06/20/2016 Last Assessment & Plan: Counseled on wt loss, with healthy diet and exercise Persistent disorder of initiating or maintaining sleep 06/20/2016 Last Assessment & Plan: Needs further eval for sig delayed sleep onset Possible DSPS Also provided sleep hygiene education Right shoulder pain 05/04/2016 Shoulder pain, left 05/04/2016 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 Cardiomyopathy (HCCode) 01/01/2016 Encounter for monitoring azathioprine therapy 01/01/20 16 documented as of this encounter (statuses as of 09/09/2019) Immunizations Name Administration Dates Next Due Influenza Quad-PF 01/30/2019, 01/17/2018 documented as of this encounter Social History Tobacco Use Types Packs/Day Years Used Date Never Smoker Smokeless Tobacco: Never Used Alcohol Use Drinks/Week oz/Week Comments Yes Ocassionally Sex Assigned at Date Recorded Not on file Job Start Date Occupation Industry Not on file Not on file Not on file Travel History Travel Start Travel End No recent travel history available. COVID-19 Exposure Response Date Recorded In the last month, have you been in contact with No / Unsure 09/06/2019 10:14 AM CDT someone who was confirmed or suspected to have Coronavirus / COVID-19? documented as of this encounter Last Filed Vital Signs Vital Sign Reading Time Taken Comments Blood Pressure 106/62 09/06/2019 10:31 AM CDT Pulse 62 09/06/2019 10:31 AM CDT Temperature - - Respiratory Rate 16 09/06/2019 10:31 AM CDT Oxygen Saturation - - Inhaled Oxygen Concentration - - Weight 109.6 kg (241 lb 10 oz) 09/06/2019 10:31 AM CDT Height 180.3 cm (5' 11") 09/06/2019 10:31 AM CDT Body Mass Index 33.7 09/06/2019 10:31 AM CDT documented in this encounter Patient Instructions Patient InstructionsPranay Elias MD - 09/06/2019 10:40 AM CDT-Start Spiriva once at bedtime -Start Singulair 10mg tablet once at bedtime -Start fexofenadine 180mg tablet twice per day -Start Flonase 1 spray in each nostril twice per day -Continue Symbicort 2 puffs twice per day -Continue albuterol as needed -Discuss with Dr. Erickson whether or not you can come off of metoprolol. -Also discuss with Dr. Erickson to make sure none of your asthma symptoms are actually due to a heart condition. Dust mite precautions: 1.) keep relative humidity at 45% or lower -Both your AC or heater will lower humidity while they are running -Alternatively you can purchase a dehumidifier. I recommend the Frigidaire brand. 2.) dust mite covers for mattress and pillows 3.) wash sheets and comforters in hot water every 2 weeks 4.) remove carpeting in the bedroom -or get a vacuum bakeshop cleaner with a HEPA filter and use on the carpet once per week documented in this encounter Progress Notes Pranay Elias MD - 09/06/2019 10:40 AM CDT CC: Patient presents to clinic today for asthma. Chief Complaint Patient presents with Initial Visit Hx of asthma, seen at the ER but was unable to get a breathing treatment unless she was admitted, denies use of otc antihistamines, takes metoprolol x5 years, denies use in past month HPI: Patient is a 24 y.o. 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 Preciado for asthma. Her current regimen for EGPA is supposed to Imuran but she recently moved and has not taken it for 2 weeks as she misplaced it. She is also on metoprolol succinate 100mg twice daily for palpitations and now resolved eosinophilic cardiomyopathy. Asthma onset coincided with initial onset of EGPA. Her ACT today is 12, indicating poor control, although she describes her asthma as well controlled. Shehas daily bouts of shortness of breath and almost nightly wheezing and coughing. Her current regimenis Symbicort and albuterol as needed. She uses albuterol about 3 times per week. She stopped her Zyrtec for today's skin test though she denies any significant nasal symptoms. Medications: Outpatient Medications Prior to Visit Medication Sig Dispense Refill albuterol 360 mcg by Inhalation route. [DISCONTINUED] amoxicillin TAKE ONE (1) TABLET(S) BY MOUTH EVERY TWELVE HOURS FOR 10 DAYS. 0 azathioprine Take 3 Tabs by mouth daily. 90 Tab 4 [DISCONTINUED] Biotin Take by mouth. [DISCONTINUED] [id number] OR Take by mouth. 3 pills daily. [DISCONTINUED] Vitamin D3 Take by mouth. [DISCONTINUED] duloxetine Take 1 Cap by mouth daily. 30 Cap 5 metoprolol 150 mg two times daily. [DISCONTINUED] Multiple Vitamins-Minerals (MULTIVITAMIN ADULT OR) Take by mouth. [DISCONTINUED] predniSONE TAKE ONE (1) TABLET(S) BY MOUTH ONCE A DAY. 0 ProAir HFA No facility-administered medications prior to visit. Allergies: Azithromycin; Lorazepam; Meloxicam; Phenergan [benzyl alc- promethazine]; Promethazine; Zofran [fd&c yellow #6 al cummings-ondansetron]; and Ondansetron PMFSHx: Past Medical History: Diagnosis Date Cardiomyopathy (HCCode) Churg-Hudson syndrome (HCCode) Ventricular tachycardia (HCCode) Past Surgical History: Past Surgical History: Procedure Laterality Date HX ENDOMYOCARDIAL BIOPSY also did a bone marrow biopsy Social History: Social History Socioeconomic History Marital status: Single Spouse name: Not on file Number of children: Not on file Years of education: Not on file Highest education level: Not on file Occupational History 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 [employer] 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 Social Needs Financial resource strain: Not on file Food insecurity: Worry: Not on file Inability: Not on file Transportation needs: Medical: Not on file Non-medical: Not on file Tobacco Use Smoking status: Never Smoker Smokeless tobacco: Never Used Substance and Sexual Activity Alcohol use: Yes Comment: Ocassionally Drug use: No Sexual activity: Yes Partners: Male Lifestyle Physical activity: Days per week: Not on file Minutes per session: Not on file Stress: Not on file Relationships Social connections: Talks on phone: Not on file Gets together: Not on file Attends jainism service: Not on file Active member of club or organization: Not on file Attends meetings of clubs or organizations: Not on file Relationship status: Not on file Intimate partner violence: Fear of current or ex partner: Not on file Emotionally abused: Not on file Physically abused: Not on file Forced sexual activity: Not on file Other Topics Concerns: Not on file Social History Narrative Finished high school, plans to attend [employer] in Spring 2016 Substance Use Topics: Social History Tobacco Use Smoking Status Never Smoker Smokeless Tobacco Never Used Family History: Family History Problem Relation Name Age of Onset Other (Other) Other no autoimmune Asthma Mother REVIEW OF SYSTEMS General ROS: negative for - chills, fatigue, fever, hot flashes, malaise, night sweats, sleep disturbance, weight gain or weight loss Ophthalmic ROS: negative for - blurry vision, decreased vision, dry eyes, excessive tearing, itchy eyes or photophobia ENT ROS: negative for - epistaxis, headaches, hearing change, nasal congestion, nasal discharge, nasal polyps, oral lesions, sinus pain, sneezing, sore throat, tinnitus, vertigo, visual changes or vocal changes Allergy and Immunology ROS: negative for - hives, insect bite sensitivity, itchy/watery eyes, latex,nasal congestion, postnasal drip or seasonal allergies Hematological and Lymphatic ROS: negative for - bruising, jaundice, pallor, swollen lymph nodes or weight loss Endocrine ROS: negative for - malaise/lethargy, mood swings, palpitations, skin changes or unexpected weight changes Respiratory ROS: +SOB, wheezing, night time cough/wheezing Cardiovascular ROS: negative for - chest pain, dyspnea on exertion, edema, irregular heartbeat, lossof consciousness, orthopnea, palpitations, rapid heart rate or shortness of breath Gastrointestinal ROS: negative for - abdominal pain, blood in stools, constipation, diarrhea, gas/bloating, heartburn, hematemesis, melena, nausea/vomiting or swallowing difficulty/pain Musculoskeletal ROS: negative for - joint pain, joint stiffness, joint swelling, muscle pain or muscular weakness Neurological ROS: negative for - dizziness, headaches or numbness/tingling Dermatological ROS: negative for - dry skin, eczema, pruritus,sweeling or rash, urticaria PHYSICAL EXAM VITALS: Vital Signs Height: 5' 11" (180.3 cm) Weight - Scale: 241 lb 10 oz (109.6 kg) Pulse: 62 Respirations: 16 BP: 106/62 Patient Position: Sitting BP Location: left arm Oxygen Therapy O2 Sat: 96 % O2 Flow Rate: Room Air Height and Weight BSA (Calculated - sq m): 2.34 sq meters BMI (Calculated): 33.8 Predicted Body Weight: 156.09 Pain Assessment Pain Scale: 0 General: well developed/well nourished Head: normocephalic, atraumatic Eyes: conjunctiva appear normal Ears: bilateral TM's and external ear canals normal Nose: normal and patent, no erythema, discharge or polyps Oropharynx: mucous membranes moist, pharynx normal without lesions Neck: supple, no bruit, no lymphadenopathy or thyromegaly Cardiovascular: peripheral pulses palpable and normal Lungs: clear to auscultation, no wheezes or rales and unlabored breathing Abdomen: soft, nontender, nondistended, no masses or organomegaly Lymphatic: non-palpable nodes in neck, clavicular, axillary or inguinal regions Extremities: peripheral pulses normal, no pedal edema, no clubbing or cyanosis Skin: normal, no cyanosis, jaundice, pallor or bruising Neurologic: normal gait and station, deep tendon reflexes symmetric, normal range, central nerves II - XII intact Psychiatric: alert, oriented, with appropriate affect LABS: No allergy testing done PFT: FVC 101% pred FEV1 95% pred FEV1/FVC 0.80 PEF 92% pred SKIN TEST: Positive control 08/18 and 09/12 [place] 06/15 Ragweed 09/22 Cat 09/03 DP 08/18 ASSESSMENT/PLAN: 24y/o woman with EGPA, moderate persistent asthma with sensitivities to weeds, cat and dust mites. Will add Spiriva, Singulair, Cara, Flonase and vit D to her regimen. Will have her discuss with whether or not she really needs metoprolol as getting off of this will help with her asthma. Will also have her ask Dr. Erickson to be sure none of her symptoms are from a cardiac etiology. If she remains inadequately controlled on this regimen, will consider Xolair or Dupixent next. She is not ready for immunotherapy yet as her asthma symptoms are not controlled. -Start Spiriva once at bedtime -Start Singulair 10mg tablet once at bedtime -Start fexofenadine 180mg tablet twice per day -Start Flonase 1 spray in each nostril twice per day -Continue Symbicort 2 puffs twice per day -Continue albuterol as needed -Dust mite precautions reviewed RTC 3 months documented in this encounter Plan of Treatment Name Type Priority Associated Diagnoses Date/Ti me IGE Lab Routine Moderate persistent 09/06/19 20 12:11 PM asthma without CDT complication Allergic rhinitis, unspecified seasonality, unspecified trig tonie Churg-Hudson syndrome (HCCode) [facility] Lab Routine 020 12:11 PM INHALANT PROFILE: CDT AL,AR,LA,MS INTERPRETATION Lab Routine 09/06/2019 12 :11 PM CDT Name Type Priority Associated Diagnoses Order S chedule WI PERCUTANEOUS TESTS WI Charge Routine Moderate persistent Ordered: 09/06/2019 W/ALLERGENIC EXTRACTS asthma without complication Allergic rhinitis, unspecified seasonality, unspecified trig tonie Churg-Hudson syndrome (HCCode) ALLERGENS, ZONE 6 Lab Routine Moderate persistent Ord ered: 09/06/2019 asthma without complication Allergic rhinitis, unspecified seasonality, unspecified trig tonie Churg-Hudson syndrome (HCCode) Health Maintenance Due Date Last Done Comments TETANUS SHOT (ADULT) 01/08/2012 BMI FOLLOW UP PLAN 2015 HIV SCREENING 2015 CERVICAL CANCER SCREENING 3 YEAR 2018 FOLLOW UP FLU VACCINE > 6 MONTHS 11/30/2019 01/30/2019, 01/30/2019, 01/17/2018, Additional history exists documented as of this encounter Procedures Procedure Name Priority Date/Time Associated Diagnosis Comme nts VITAMIN D 25 Routine 09/06/2019 12:11 PM Moderate persistent R esults for this HYDROXY CDT asthma without procedure are in complication the results Allergic rhinitis, section. unspecified seasonality, unspecified trig tonie Churg-Hudson syndrome (HCCode) WI BREATHING Routine 09/06/2019 11:14 AM Moderate persistent R esults for this CAPACITY TEST CDT asthma without procedure ar e in complication the results Allergic rhinitis, section. unspecified seasonality, unspecified trig tonie Churg-Hudson syndrome (HCCode) documented in this encounter Results VITAMIN D 25 HYDROXY (09/06/2019 12:11 PM CDT) VITAMIN D 27 (L) SEE BELOW CPL 25-HYDROXY Comment: NG/ML NOTE: 25-HYDROXYVITAMIN D ASSAY INCLUDES 25-HYDROXYVIT WILDER D2 AND D3. METHODOLOGY IS CHEMILUMINESCENT IMM UNOASSAY. $$$$$ INTERPRETIVE RANGES $$$$ $ PEDIATRIC (<17 YEARS) . . . . . . . . . . . NG/ML 20-100 ADULT: INSUFFICIENT . . . . . . . . . . . . . . NG/ML <20 SUBOPTIMAL . . . . . . . . . . . . . . . NG/ML 20-29 OPTIMAL . . . . . . . . . . . . . . . . . NG/ML 30-100 Unless Otherwise Indicated, All Testing Pe rformed At: [facility], [address] [place] [id number] School Childcare Attendant: Hardeep Dyson M.D . YOSI Number [id number] [facility] [place]. [id number] Specimen Blood Performing Organization Address City/State/Zipcode Phone Number CPL [address] [place] [address] [place] BREATHING CAPACITY TEST (09/06/2019 11:14 AM CDT) Narrative Performed At This result has an attachment that is no t available. documented in this encounter Visit Diagnoses Diagnosis Moderate persistent asthma without compl ication - Primary Unspecified asthma Allergic rhinitis, unspecified seasonali ty, unspecified trigger Churg-Hudson syndrome (HCCode) Rebeca's granulomatosis documented in this encounter Insurance Payer Benefit Plan / Subscriber ID Effective Dates Phone Addre ss Type Group [employer] OPEN ACCESS xxxxxxxxxxx 2005-Present [address] PPO PLUS - JENAE TALLEY [id number] [address] (Home) [facility] [phone] [place] [address] (Work) documented as of this encounter
[2019-09-17] MEDS ORDERED: NA CHLORIDE 0.9% 1,000 ML ONE (18:25)
[2019-09-17] MEDS ORDERED: FENTANYL CITR 100 MCG/2 ML ONE (18:25)
--- NOTE | 2019-09-17 18:46 | RAD REPORT ---
EXAM DESCRIPTION: RAD - Chest Single View - 09/17/2019 6:39 pm CLINICAL HISTORY: right upper chest/shoulder pain Chest pain. COMPARISON: Chest Single View dated 05/23/2019; Chest Pa And Lat (2 Views) dated 03/24/2019; Chest Si ngle View dated 01/21/2019; Chest Pa And Lat (2 Views) dated 01/16/2019 FINDINGS: Portable technique limits examination quality. The lungs are grossly clear. The heart is normal in size. No displaced fractures. IMPRESSION: No acute intrathoracic process suspected.
[2019-09-17 18:47] LABS: Absolute Lymphocytes (CBC) 1.7 K/uL (0.7-4.9); Basophils % 0.7 % (0-1.3); Hematocrit 47.4 % (36.0-45.0); Lymphocytes % 14.7 % (15.3-44.8); MPV 10.3 fL (7.6-11.3); RBC Red Blood Cell Count 5.06 M/uL (3.86-4.86)
[2019-09-17 18:52] LABS: Protime INR 1.04
--- NOTE | 2019-09-17 18:56 | EKG ---
Test Date: 2019-09-17 Test Time: 18:27:55 Ice Sculptor: NILTON MEASUREMENT RESULTS: Intervals: Rate: 83 IN: 144 QRSD: 82 QT: 368 QTc: 432 [place]: P: 31 IN: 144 QRS: 7 T: 8 INTERPRETIVE STATEMENTS: Normal sinus rhythm Possible Left atrial enlargement Low voltage QRS Nonspecific ST and T wave abnormality Abnormal ECG Compared to ECG 05/23/2019 22:06:17 Sinus arrhythmia no longer present ST (T wave) deviation still present Electronically Signed On 09-17-19 18:55:57 CDT by Anderson Harrison
[2019-09-17 19:04] LABS: ALT/SGPT 22 U/L (12-78); AST/SGOT 14 U/L (15-37); Albumin 4.1 g/dL (3.4-5.0); Alkaline Phosphatase 89 U/L (45-117); BUN Blood Urea Nitrogen 17 mg/dL (7-18); Bicarbonate 24 mmol/L (21-32); Bilirubin Direct 0.2 mg/dL (0-0.2); Bilirubin Total 0.7 mg/dL (0.2-1.0); Glucose Level 87 mg/dL (74-106); Magnesium 2.4 mg/dL (1.8-2.4); Protein, Total 8.1 g/dL (6.4-8.2); Sodium Level 140 mmol/L (136-145); Troponin (Emerg Dept Use Only) < 0.02 ng/mL (0.0-0.045)
--- NOTE | 2019-09-17 20:06 | RAD REPORT ---
EXAM DESCRIPTION: CT - Chest For Pe Angio - 09/17/2019 7:55 pm CLINICAL HISTORY: Chest pain. CHEST PAIN COMPARISON: No comparisons TECHNIQUE: CT angiogram of the pulmonary arteries was performed with MIP. All CT scans are performed using dose optimization technique as appropriate and may include automated exposure control or mA/KV adjustment according to patient size. FINDINGS: No evidence of pulmonary thromboembolism. No acute aortic finding demonstrated. The lungs are clear. No significant pericardial or pleural fluid. No concerning bony finding. IMPRESSION: No evidence of pulmonary thromboembolism. No acute lung findings.
--- NOTE | 2019-09-17 20:51 | ER ---
Nurse's Notes [facility] Name: Tiffany Madrid Age: 24 yrs Sex: Female : 1995 Arrival Date: 09/17/2019 Time: 17:18 Bed 5 Private MD: Mansoor Hein Diagnosis: Other chest pain;Pain in right shoulder Presentation: 09/16 17:50 Chief complaint: Patient states: R shoulder pain x 1 week, denies known injury, hx of ph lupus, states, " I have hurt there before but never this bad, it hurts when I breathe. Coronavirus screen: Patient denies a cough. Patient denies shortness of breath or difficulty breathing. Patient denies measured and/or subjective temperature greater than 100.4F prior to today's visit. Patient denies travel on a cruise ship or to a country the [facility] currently lists as an affected area. Patient denies contact with known and/or suspected case of COVID-19. Ebola Screen: No symptoms or risks identified at this time. Initial Sepsis Screen: Does the patient meet any 2 criteria? No. Patient's initial sepsis screen is negative. Does the patient have a suspected source of infection? No. Patient's initial sepsis screen is negative. Risk Assessment: Do you want to hurt yourself or someone else? Patient reports no desire to harm self or others. Onset of symptoms was September 17, 2019. 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 - Social history:: Smoking status: Patient denies any tobacco usage or history of. Screenin:30 Abuse screen: Denies threats or abuse. Denies injuries from another. Nutritional ss screening: No deficits noted. Tuberculosis screening: Never had TB. Fall Risk None identified. Assessment: 18:30 General: Appears distressed, uncomfortable, Behavior is anxious, crying, Denies fever, ss feeling ill, fatigue, chills. Pain: Complains of pain in R shoulder Pain currently is 9.5 out of 10 on a pain scale. Pain: Aggravated by laying down, ROM. Neuro: Level of Consciousness is awake, alert, obeys commands, Oriented to person, place, time, situation, Support Engineer are equal bilaterally Moves all extremities. Full function. Cardiovascular: Capillary refill < 3 seconds is brisk in bilateral fingers Rhythm is sinus rhythm. Respiratory: Reports pain with cough pain with movement pain with respiration Airway is patent Respiratory effort is even, unlabored, Respiratory pattern is regular, symmetrical, Breath sounds are clear bilaterally. Denies cough, shortness of breath. GI: Abdomen is non-distended, Patient currently denies abdominal pain, diarrhea, nausea, vomiting. : No signs and/or symptoms were reported regarding the genitourinary system. Derm: Skin is intact, is healthy with good turgor, Skin is dry, Skin is pink, warm \\T\\ dry. normal. Musculoskeletal: Circulation, motion, and sensation intact. Range of motion: intact in all extremities, Swelling absent. 19:15 Reassessment: Patient appears in no apparent distress at this time. Patient and/or jb4 family updated on plan of care and expected duration. Pain level reassessed. Patient is alert, oriented x 3, equal unlabored respirations, skin warm/dry/pink. PT reports feeling better and reports pain is 5/10 Patient states feeling better. 20:30 Reassessment: Patient appears in no apparent distress at this time. Patient and/or jb4 family updated on plan of care and expected duration. Pain level reassessed. Patient is alert, oriented x 3, equal unlabored respirations, skin warm/dry/pink. Reports and increase in pain, provider notified. PT reports not knowing what her allergy to Meloxicam is. Denies taking NSAIDS since finding out about allergy and reports NSAID's do not alleviate pain. No new orders at this time. 21:10 Reassessment: Patient appears in no apparent distress at this time. Patient and/or jb4 family updated on plan of care and expected duration. Pain level reassessed. Patient is alert, oriented x 3, equal unlabored respirations, skin warm/dry/pink. Pt verbalized understanding of D/c and follow up instructions. Denies questions or concerns. Ambulated out of ED with steady gait. Vital Signs: 17:50 BP 111 / 76; Pulse 86; Resp 22; Temp 97.8; Pulse Ox 98% on R/A; Weight 104.33 kg; ph Height 5 ft. 11 in. (180.34 cm); Pain 7/10; 19:29 BP 96 / 67; Pulse 62; Resp 16; Pulse Ox 98% on R/A; Pain 5/10; jb4 20:54 BP 106 / 66; Pulse 59; Resp 18; Pulse Ox 100% on R/A; jb4 17:50 Body Mass Index 32.08 (104.33 kg, 180.34 cm) ph ED Course: 17:18 Patient arrived in ED. ag5 17:18 Cecilio Hein MD is Private Physician. ag5 17:18 Mansoor Hein DO is Private Physician. ag5 17:51 Demarco Carrasco PA is PHCP. cp 17:51 Jaleel Mathur MD is Attending Physician. cp 17:52 Triage completed. ph 17:53 Arm band placed on Patient placed in an exam room. ph 18:29 Shaniqua Delgado, RN is Primary Nurse. ss 18:30 Patient has correct armband on for positive identification. Bed in low position. Call ss light in reach. 18:30 Inserted saline lock: 20 gauge in right antecubital area, using aseptic technique. ss Blood collected. 18:39 XRAY Chest (1 view) In Process Unspecified. EDMS 18:47 Basic Metabolic Panel Sent. sv 18:47 CBC with Diff Sent. sv 18:54 Notified Nurse Practitioner and/or Physician Ticket Scheduler of a critical lab result(s), hb DDIMER 517. 19:41 Primary Nurse role handed off by Shaniqua Delgado, ALEX jb4 19:41 Karthik Beaulieu, ALEX is Primary Nurse. jb4 19:55 CT Chest For PE Angio In Process Unspecified. EDMS 21:05 No provider procedures requiring assistance completed. IV discontinued, intact, jb4 bleeding controlled, No redness/swelling at site. Pressure dressing applied. Administered Medications: 18:28 Drug: NS 0.9% 1000 ml Route: IV; Rate: 1000 ml/hr; Site: right antecubital; ss 20:55 Follow up: Response: No adverse reaction; IV Status: Order to discontinue infusion; IV jb4 Intake: 600ml 18:33 Drug: fentaNYL (PF) 25 mcg Route: IVP; Site: right antecubital; ss 21:07 Follow up: Response: No adverse reaction; Pain is decreased; RASS: Alert and Calm (0) jb4 20:55 Drug: SOLU-Medrol 60 mg Route: IVP; Site: right antecubital; jb4 21:05 Follow up: Response: No adverse reaction jb4 Intake: 20:55 IV: 600ml; Total: 600ml. jb4 Outcome: 20:49 Discharge ordered by MD. cp 21:05 Discharged to home ambulatory. jb4 21:05 Condition: stable 21:05 Discharge instructions given to patient, Instructed on discharge instructions, follow up and referral plans. medication usage, Demonstrated understanding of instructions, follow-up care, medications, Prescriptions given X 2. 21:11 Patient left the ED. jb4 Signatures: Dispatcher [employer] EDMS Suyapa Sol RN RN sv Smirch, Shelby, RN RN ss Jen Woods RN RN ph Page, Corey, DEBBIE PA Lorrie Castro RN RN hb Bryson, James, RN RN jb4 Gaskin, Ajare ag5 Corrections: (The following items were deleted from the chart) 21:07 19:15 Response: No adverse reaction; Pain is unchanged, physician notified; RASS: Alert jb4 and Calm (0) jb4
--- NOTE | 2019-09-17 20:51 | EDPHYS ---
Physician Documentation [facility] Name: Tiffany Madrid Age: 24 yrs Sex: Female : 1995 Arrival Date: 09/17/2019 Time: 17:18 Bed 5 Private MD: Angel Luis [facility] ED Physician Jaleel Mathur HPI: 09/16 18:05 This 24 yrs old Female presents to ER via Ambulatory with complaints of cp Shoulder Pain, Breathing Difficulty. 18:05 The patient or guardian complains of pain, that is acute. right shoulder and upper cp chest. 18:05 Onset: The symptoms/episode began/occurred 1 week(s) ago. Modifying factors: The cp symptoms are aggravated by movement, breathing. Associated signs and symptoms: Pertinent positives: chest pain, Pertinent negatives: abdominal pain, diaphoresis, neck pain, Numbness in right arm shortness of breath, Weakness in right arm. Treatment prior to arrival includes: no previous treatment. 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 - Social history:: Smoking status: Patient denies any tobacco usage or history of. ROS: 18:10 Constitutional: Negative for body aches, chills, fever, poor PO intake. cp 18:10 Eyes: Negative for injury, pain, redness, and discharge. cp 18:10 ENT: Negative for ear pain, sore throat, difficulty swallowing, difficulty handling cp secretions. 18:10 Cardiovascular: Positive for chest pain, of the right upper chest, Negative for edema, palpitations. 18:10 Respiratory: Negative for cough, shortness of breath, wheezing. 18:10 Abdomen/GI: Negative for abdominal pain, nausea, vomiting, and diarrhea. 18:10 : Negative for urinary symptoms. 18:10 Neuro: Negative for altered mental status, headache, numbness, syncope, weakness. 18:10 All other systems are negative. Exam: 18:15 Constitutional: The patient appears in no acute distress, alert, awake, non-toxic, well cp developed, well nourished, uncomfortable. 18:15 Head/Face: Normocephalic, atraumatic. cp 18:15 Eyes: Periorbital structures: appear normal, Conjunctiva: normal, no exudate, no injection, Sclera: no appreciated abnormality, Lids and lashes: appear normal, bilaterally. 18:15 ENT: External ear(s): are unremarkable, Nose: is normal, Mouth: Lips: moist, Oral mucosa: pink and intact, moist, Posterior pharynx: is normal, airway is patent, no erythema, no exudate. 18:15 Neck: ROM/movement: is normal, is supple, without pain, no range of motions limitations, no nuchal rigidity. 18:15 Chest/axilla: Inspection: normal, Palpation: crepitus, is not appreciated, tenderness, that is severe, of the right clavicle and anterior aspect of right upper chest. 18:15 Cardiovascular: Rate: normal, Rhythm: regular, Pulses: Pulses are 2+ in right radial artery and left radial artery. Heart sounds: murmur, not appreciated, rub, not appreciated, Edema: is not appreciated, JVD: is not appreciated. 18:15 Respiratory: the patient does not display signs of respiratory distress, Respirations: normal, no use of accessory muscles, no retractions, no splinting, no tachypnea, labored breathing, is not present, Breath sounds: are clear throughout, no decreased breath sounds, no stridor, no wheezing. 18:15 Abdomen/GI: Inspection: abdomen appears normal, Bowel sounds: active, all quadrants, Palpation: abdomen is soft and non-tender, in all quadrants, rebound tenderness, is not appreciated, voluntary guarding, is not appreciated, involuntary guarding, is not appreciated. 18:15 Musculoskeletal/extremity: ROM: full active range of motion, in the right shoulder, Joints: All joints are normal except the right shoulder displays pain at rest. 18:15 Skin: cellulitis, is not appreciated, no rash present. 18:15 Neuro: Orientation: to person, place \T\ time. Mentation: is normal, Motor: moves all fours, strength is normal, Sensation: is normal. 18:31 ECG was reviewed by the Attending Physician. cp Vital Signs: 17:50 BP 111 / 76; Pulse 86; Resp 22; Temp 97.8; Pulse Ox 98% on R/A; Weight 104.33 kg; ph Height 5 ft. 11 in. (180.34 cm); Pain 7/10; 19:29 BP 96 / 67; Pulse 62; Resp 16; Pulse Ox 98% on R/A; Pain 5/10; jb4 20:54 BP 106 / 66; Pulse 59; Resp 18; Pulse Ox 100% on R/A; jb4 17:50 Body Mass Index 32.08 (104.33 kg, 180.34 cm) ph MDM: 18:00 Patient medically screened. cp 20:48 Data reviewed: vital signs, nurses notes, lab test result(s), EKG, radiologic studies, cp CT scan, plain films. 20:48 Test interpretation: by ED physician or midlevel provider: ECG. cp 09/16 18:05 Order name: Basic Metabolic Panel cp 09/16 18:05 Order name: CBC with Diff cp 09/16 18:05 Order name: LFT's; Complete Time: 19:35 cp 09/16 20:40 Interpretation: Normal except: AST 14; GLOB 4.0; A/G 1.0. cp 09/16 18:05 Order name: Magnesium; Complete Time: 19:35 cp 09/16 18:05 Order name: PT-INR; Complete Time: 19:35 cp 09/16 18:05 Order name: Troponin (emerg Dept Use Only); Complete Time: 19:35 cp 09/16 18:05 Order name: XRAY Chest (1 view); Complete Time: 18:51 cp 09/16 18:51 Interpretation: Report review. cp 09/16 18:05 Order name: D-Dimer; Complete Time: 19:35 cp 09/16 18:06 Order name: Basic Metabolic Panel; Complete Time: 19:35 EDMS 09/16 20:43 Interpretation: Normal except: CL 108; GFR 81. cp 09/16 18:06 Order name: CBC with Automated Diff; Complete Time: 18:51 EDMS 09/16 18:51 Interpretation: Normal except: WBC 11.3; RBC 5.06; HGB 15.9; HCT 47.4; LYM% 14.7; cp EOSINOPHIL % 6.2; EOSA 0.7. 09/16 19:36 Order name: CT Chest For PE Angio; Complete Time: 20:34 cp 09/16 20:34 Interpretation: Report reviewed. cp 09/16 18:05 Order name: EKG; Complete Time: 18:07 cp 09/16 18:05 Order name: Cardiac monitoring; Complete Time: 19:09 cp 09/16 18:05 Order name: EKG - Nurse/Tech; Complete Time: 18:30 cp 09/16 18:05 Order name: IV Saline Lock; Complete Time: 18:30 cp 09/16 18:05 Order name: Labs collected and sent; Complete Time: 18:30 cp 09/16 18:05 Order name: O2 Per Protocol; Complete Time: 18:30 cp 09/16 18:05 Order name: O2 Sat Monitoring; Complete Time: 18:30 cp EC:31 Rate is 83 beats/min. Rhythm is regular. NV interval is normal. QRS interval is normal. cp QT interval is normal. Interpreted by me. Reviewed by me. Administered Medications: 18:28 Drug: NS 0.9% 1000 ml Route: IV; Rate: 1000 ml/hr; Site: right antecubital; ss 20:55 Follow up: Response: No adverse reaction; IV Status: Order to discontinue infusion; IV jb4 Intake: 600ml 18:33 Drug: fentaNYL (PF) 25 mcg Route: IVP; Site: right antecubital; ss 21:07 Follow up: Response: No adverse reaction; Pain is decreased; RASS: Alert and Calm (0) jb4 20:55 Drug: SOLU-Medrol 60 mg Route: IVP; Site: right antecubital; jb4 21:05 Follow up: Response: No adverse reaction jb4 Disposition: 09/17 07:57 Co-signature as Attending Physician, Jaleel Mathur MD I agree with the assessment and kdr plan of care. Disposition: 09/17/19 20:49 Discharged to Home. Impression: Other chest pain, Pain in right shoulder. - Condition is Stable. - Discharge Instructions: Nonspecific Chest Pain, Chest Wall Pain, Shoulder Pain. - Prescriptions for Tramadol 50 mg Oral Tablet - take 1 tablet by ORAL route every 8 hours as needed; 12 tablet. Prednisone 20 mg Oral Tablet - take 2 tablet by ORAL route once daily for 5 days; 10 tablet. - Medication Reconciliation Form, Thank You Letter, Antibiotic Education, Prescription Opioid Use form. - Follow up: Private Physician; When: 2 - 3 days; Reason: Recheck today's complaints. - Problem is new. - Symptoms have improved. Signatures: Dispatcher [employer] EDMS Jaleel Mathur MD MD [facility] Shaniqua Delgado RN RN Jen Woods RN RN Demarco Diaz PA PA cp Karthik Beaulieu, RN RN jb4 Corrections: (The following items were deleted from the chart) 09/16 18:51 18:51 Normal except: WBC 11.3; RBC 5.06; HGB 15.9; HCT 47.4; LYM% 14.7; EOSINOPHIL % cp 6.2. cp 21:05 18:05 Urine Test ordered. jb4 21:06 18:05 Urine Dipstick-Ancillary ordered. jb4 21:11 20:49 09/17/2019 20:49 Discharged to Home. Impression: Other chest pain; Pain in right jb4 shoulder. Condition is Stable. Forms are Medication Reconciliation Form, Thank You Letter, Antibiotic Education, Prescription Opioid Use. Follow up: Private Physician; When: 2 - 3 days; Reason: Recheck today's complaints. Problem is new. Symptoms have improved. cp
[2019-09-17] MEDS ORDERED: METHYLPREDNISOLONE 40 MG INJ ONE (21:01)
[2019-09-17 21:59] VITALS: TEMP 97.8
[2019-09-17 22:04] VITALS: BP 106/66; O2SAT 100
== END 2019-09-17 21:11 | disposition home or self-care (01) ==
LOC: ER 17:17
DX: R07.89 Other chest pain (principal); Z88.1 Allergy status to other antibiotic agents; Z88.8 Allergy status to other drugs, medicaments and biological substances
CPT/HCPCS: 96361; 93005; 85025; 80048; 36415; 83735; 85610; 85379; 80076; 84484; 71275; 71045; 96375; 96374; 99284; Q9967; J3010; J7030; J2920

== ENCOUNTER 2019-11-03 01:57 | Emergency (ER) | payer BC ==
--- OUTSIDE RECORDS SUMMARY | 2019-11-03 01:59 | XMS REPORT | Clinical Summary ---
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 after 11/02/2018 Results US Breast Bilateral (04/17/2019 10:53 AM [employer] PLANT MANAGER) Specimen Narrative Performed At Addendum Begins GE RIS Normal Exam AMENDMENT: 04/18/2019 Luke Forte M.D. The 02/27/[address] without contrast w as available for correlation. Amended BI-RADS: 2 Benign Addendum Ends #[id number] - MM, U/S, BREAST, BILATERAL ULTRASOUND OF [...] 11:24:17 Normal Exam Ultrasound BI-RADS: 2 Benign [id number] Procedure Note Interface, External Ris In - 04/18/2019 12:23 PM SUB PLANT MANAGER Addendum Begins Normal Exam AMENDMENT: 04/18/2019 Baltazar Galindo The 02/27/[address] without contrast w as available for correlation. Amended BI-RADS: 2 Benign Addendum Ends #[id number] - MM, U/S, BREAST, BILATERAL ULTRASOUND OF [...] 11:24:17 Normal Exam Ultrasound BI-RADS: 2 Benign [id number] Performing Organization Address City/State/Zipcode Phone Number GE RIS after 11/02/2018 Insurance Payer Benefit Plan / Subscriber ID Type Phone Address Group BLUE [employer]OSS/[employer]UE [employer]BS OS xxxxxxxxxxxxxxx PPO [phone] [address] [place] [place] [address]
--- OUTSIDE RECORDS SUMMARY | 2019-11-03 02:00 | XMS REPORT | Continuity of Care Document ---
:1995 Author Organization [facility] t Address [address] Carias [address] [place] [address] Care Team Providers Name Role Phone Pcp Primary Care Physician Unavailable Jada TONG Attending Clinician Eliud Preciado Attending Clinician Leon Preciado MD Attending Clinician Payers Payer Name Policy Type Policy Number Effective Date Expiration Date S ayophil BLUE CROSS/BLUE xxxxxxxxxxxxxxx [facility] SHIELDBC[facility] OS - Medical POS/PPO/EPOxxxxx [place] [id number], [place] [address] Problems Condition Condition Condition Status Onset Resolution Last Treating Co mments Source Name Details Category Date Date Treatment Clinician Date Abnormal Abnormal Problem [facility] - rhythm rhythm [facility] Memory Memory Problem Active [facility] difficulti difficulti Pricilla kes - es es [facility] Shoulder Shoulder Problem Active [facility] impingemen impingemen Pricilla kes - t syndrome t syndrome Me moria l [facility] Asthma Asthma Problem Active [facility] Edema Edema Problem Active [facility] Anxiety Anxiety Problem Active [facility] Rotator Rotator Problem Active [facility] cuff cuff [facility] - impingemen impingemen Me moria t syndrome t syndrome l [facility] Migraines Migraines Problem Active [facility] Depression Depression Problem Active [facility] - [facility]ics Muscle Muscle Problem Active [facility] pain pain [facility] - [facility] ent [facility] Mild Mild Problem Active [facility] asthma asthma [facility] - with with Memoria exacerbati exacerbati l on, on, [facility] unspecifie unspecifie en t d whether d [...] Active Info Not [facility] Reaction Available [facility] Phenerga Adverse Active Info Not [facility] n Reaction Available [facility] Meloxica Adverse Active Info Not [facility] m Reaction Available [facility] Social History Social Habit Start Date Stop Date Quantity Comments Source Sex Assigned At [facility] Medications Ordered Filled Start Stop Current Ordering Indication Dosage Frequency Signature Comments Components Source Medication Medication Date Date Medication? Clinician (SIG) Name Name PredniSONE PredniSONE 2018-05 2019- No [place] [address] 1-18 03-23 Hein [facility] - 00:00: 00:00 Memoria 00 :00 [facility] Albuterol Albuterol 2017-05 Yes Mansoor [address] [facility] Sulfate Sulfate 1-05 Hein needed [facility] - 00:00: Memoria 00 [facility] Symbicort Symbicort 2019- No Mansoor [address] 8-13 11-12 Hein [facility] - 00:00: 00:00 Memoria 00 :00 [facility] Biotin Biotin Yes Mansoor not [facility] Hein defined kes [facility] Zantac Zantac Yes [facility] 1 tablet [facility] Hein at bedtime [facility] - [facility] ent [facility] Vitamin D-3 Vitamin D-3 Yes Mansoor [address] [facility] [facility] Duexis Duexis Yes [facility] 1 tablet [facility] Zinc Zinc Yes Mansoor not [facility] Sulfate Sulfate Hein defined [facility] ProAir HFA ProAir HFA Yes Mans[place] [address] [address] Hein needed [facility] Metoprolol Metoprolol Yes Mans[place] [address] Tartrate Tartrate Hein with food L ukes - [facility] l Outpat[facility] ent [facility] Cymbalta Cymbalta Yes Mansoor [address] [facility] [facility] Azathioprin Azathioprin Yes Mansoor Take [address] [facility] [address] e e Hein tabs [facility] Procedures Procedure Date / Time Performed Performing Clinician Sourc e US BREAST BILATERAL 2019-04-17 10:53:00 Polo Preciado [facility] Encounters Start End Encounter Admission Attending Care Care Encounter Source Date/Time Date/Time Type Type Clinicians Facility Department ID 2019-09-06 2019-09-06 Office Pranay Elias [id number] 10:14:55 10:54:55 Visit AMBULATOR [id number] Y [id number] 2019-08-22 2019-08-22 [facility] [id number] [facility] 14:02:00 14:02:00 Mel[facility] Medicine Outpati ent Clinics 2019-08-08 2019-08-08 [facility] [id number] 11:03:00 11:03:00 t [email or web address] [facility] Medicine l Medicine Outpati ent Clinics 2019-03-18 2019-03-18 [facility] [id number] 13:45:00 13:45:00 t [email or web address] [facility] Medicine l Medicine Outpati ent Clinics 2019-02-20 2019-02-20 [facility] [id number] 09:43:00 09:43:00 [facility] Medicine Medicine Outpati ent Clinics 2019-01-30 2019-01-30 Office JANINA Preciado [id number] 08:24:11 09:27:15 Visit Polo Quintero AMBULATOR [id number] Y [id number] 2019-01-28 2019-01-28 [facility] [id number] 14:00:00 14:00:00 t Boissevain Boissevain [employer] [facility] - Drive [facility] Medicine Outpati ent Clinics 2018-11-21 2018-11-21 [facility] [id number] 11:00:00 11:00:00 t Boissevain Boissev[employer] - Drive [facility] Medicine Outpati ent Clinics 2018-09-04 2018-09-04 [facility] [id number] 08:00:00 08:00:00 t Boissevain Boisse[employer] - Drive [facility] Medicine Outpati ent Clinics 2018-08-16 2018-08-16 [facility] [id number] 11:30:00 11:30:00 t Boissevain [employer] - Drive [facility] Medicine Outpati ent Clinics 2018-08-07 2018-08-07 [facility] [id number] 10:45:00 10:45:00 t Boissevain [employer] s - Drive [facility] l Medicine Outpati ent Clinics 2018-01-29 2018-01-29 [facility] [id number] 13:30:00 13:30:00 t Boissevain [employer] Luke s - Drive [facility] Medicine Outpati ent Clinics 2017-12-11 2017-12-11 [facility] [id number] 10:30:00 10:30:00 t Boissevain [employer] Luke s - Drive [facility] Medicine Outpati ent Clinics 2017-10-02 2017-10-02 [facility] [id number] 15:40:00 15:40:00 t Boissevain [employer] Luke s - Drive [facility] Medicine Outpati ent Clinics 2017-09-21 2017-09-21 [facility] [id number] 09:45:00 09:45:00 t [facility] s [facility] 2017-08-30 2017-08-30 Outpatient Jessee Hookst [id number] 09:08:00 09:08:00 t [facility] s [facility] 2017-08-15 2017-08-15 [facility] [id number] 09:59:00 09:59:00 [facility] s [facility] 2017-07-31 2017-07-31 [facility] [id number] 10:57:00 10:57:00 [facility] 2017-07-20 2017-07-20 [facility] [id number] 09:00:00 09:00:00 [facility] Results Test Test Test Comments Results Result Source Description Time Comments MM, U/S, 2019-03- Diagnostic Addendum BeginsN#: BREAST, 19 workup per [id number] Exam BILATERAL 09:27:00 radiologist?->Ye AMENDMENT: 04/18/2019 sReason for Luke Forte M.D. The Exam:->R92.8 02/27/[address] ABNORMAL FINDING without contrast was ON RADIOLOGICAL available for EXAMINATION OF correlation. Amended BREAST BI-RADS: 2 Benign Addendum EndsN#: [id number] - MM, U/S, BREAST, BILATERALULTRASOUND OF RIGHT [...] 11:24:17 Normal Exam Ultrasound BI-RADS: 2 Benign [id number] Breast 2019-03- Interface, External Ris C HI [facility] Bilateral 18 In - 04/18/2019 12:23 Joseph es - 11:24:00 PM CSTAddendum Medical BeginsN#: Center [id number] Exam AMENDMENT: 04/18/2019 Luke Forte M.D. The 02/27/[address] without contrast was available for correlation. Amended BI-RADS: 2 Benign Addendum EndsN#: [id number] - MM, U/S, BREAST, BILATERALULTRASOUND OF RIGHT [...] 11:24:17 Normal Exam Ultrasound BI-RADS: 2 Benign [id number]
--- NOTE | 2019-11-03 03:20 | EDPHYS ---
Physician Documentation [facility] Name: Tiffany Madrid Age: 24 yrs Sex: Female : 1995 Arrival Date: 11/03/2019 Time: 02:00 Bed 8 Private MD: ED Physician Faisal Mata HPI: 11/02 02:54 This 24 yrs old Female presents to ER via Ambulatory with complaints of rn Anxiety. 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 Denies recent illness, states under a lot of stress, crying a lot, and emotional. Is 9 weeks now. . Severity of symptoms: At their worst the symptoms were moderate in the emergency department the symptoms are unchanged. The patient has experienced similar episodes in the past. The patient has not recently seen a physician. 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 - Social history:: Smoking status: Patient denies any tobacco usage or history of. - Family history:: not pertinent. - Hospitalizations: : No recent hospitalization is reported. ROS: 02:54 Constitutional: Negative for fever, chills, and weight loss, Eyes: Negative for injury, rn pain, redness, and discharge, Neck: Negative for injury, pain, and swelling, Cardiovascular: Negative for chest pain, and edema, Respiratory: Negative for shortness of breath, cough, wheezing, and pleuritic chest pain, Abdomen/GI: Negative for abdominal pain, nausea, vomiting, diarrhea, and constipation, MS/Extremity: Negative for injury and deformity, Skin: Negative for injury, rash, and discoloration, Neuro: Negative for headache, weakness, numbness, tingling, and seizure, Psych: Negative for depression, suicide ideation, homicidal ideation, and hallucinations. Exam: 02:54 Constitutional: This is a well developed, well nourished patient who is awake, alert, rn tearful, ambulatory to room without difficulty or assistance. Head/Face: Normocephalic, atraumatic. ENT: MMM Cardiovascular: Regular rate and rhythm. No pulse deficits. Respiratory: Crying, but speaking full sentences, unlabored. Neuro: Awake and alert, GCS 15, oriented to person, place, time, and situation. Cranial nerves II-XII grossly intact. Motor strength 5/5 in all extremities. Sensory grossly intact. Cerebellar exam normal. Normal gait. Vital Signs: 02:06 BP 122 / 71; Pulse 106; Resp 18; Temp 98.0; Pulse Ox 97% on R/A; Weight 95.25 kg; ss Height 5 ft. 11 in. (180.34 cm); Pain 0/10; 03:00 BP 110 / 75; Pulse 92; Resp 17; Pulse Ox 98% ; rr5 03:31 BP 99 / 62; Pulse 85; Resp 19; Pulse Ox 99% ; rr5 02:06 Body Mass Index 29.29 (95.25 kg, 180.34 cm) ss MDM: 02:02 Patient medically screened. rn 03:17 Differential Diagnosis anxiety. Data reviewed: vital signs, nurses notes, and as a rn result, I will discharge patient. Counseling: I had a detailed discussion with the patient and/or guardian regarding: the historical points, exam findings, and any diagnostic results supporting the discharge/admit diagnosis, the need for outpatient follow up, to return to the emergency department if symptoms worsen or persist or if there are any questions or concerns that arise at home. Special discussion: I discussed with the patient/guardian in detail that at this point there is no indication for admission to the hospital. It is understood, however, that if the symptoms persist or worsen the patient needs to return immediately for re-evaluation. ED course: Had long conversation with patient regarding category D class of benzos that she was accustomed to receiving in ER, was able to calm down on her own, improvement of vitals, no longer crying, and patient states "I just want to go home". Advised that she talks with her psychiatrist regarding anxiety treatment during . . Administered Medications: No medications were administered Disposition: 11/03/19 03:19 Discharged to Home. Impression: Anxiety disorder, unspecified. - Condition is Stable. - Discharge Instructions: Panic Attacks, Generalized Anxiety Disorder. - Medication Reconciliation Form, Thank You Letter, Antibiotic Education, Prescription Opioid Use form. - Follow up: Private Physician; When: As needed; Reason: Recheck today's complaints, Re-evaluation by your physician. - Problem is an acute exacerbation. - Symptoms have improved. Signatures: Faisal Mata MD MD rn Smirch, Shelby, RN RN ss Roque, Raymond, RN RN rr5 Corrections: (The following items were deleted from the chart) 03:33 03:19 11/03/2019 03:19 Discharged to Home. Impression: Anxiety disorder, unspecified. rr5 Condition is Stable. Forms are Medication Reconciliation Form, Thank You Letter, Antibiotic Education, Prescription Opioid Use. Follow up: Private Physician; When: As needed; Reason: Recheck today's complaints, Re-evaluation by your physician. Problem is an acute exacerbation. Symptoms have improved. rn
--- NOTE | 2019-11-03 03:20 | ER ---
Nurse's Notes [facility] Name: Tiffany Madrid Age: 24 yrs Sex: Female : 1995 Arrival Date: 11/03/2019 Time: 02:00 Bed 8 Private MD: Diagnosis: Anxiety disorder, unspecified Presentation: 11/02 02:06 Chief complaint: Patient states: Pt reports "panic attack" that began 2-3 hours ago. Pt ss states, "I have a lot going on in my life right now and I don't have anything at home to take for my anxiety.". Coronavirus screen: Proceed with normal triage. Patient denies a cough. Patient denies shortness of breath or difficulty breathing. Patient denies measured and/or subjective temperature greater than 100.4F prior to today's visit. Patient denies travel on a cruise ship or to a country the [facility] currently lists as an affected area. Patient denies contact with known and/or suspected case of COVID-19. Ebola Screen: Patient denies exposure to infectious person. Patient denies travel to an Ebola-affected area in the 21 days before illness onset. Initial Sepsis Screen: Does the patient meet any 2 criteria? No. Patient's initial sepsis screen is negative. Does the patient have a suspected source of infection? No. Patient's initial sepsis screen is negative. Risk Assessment: Do you want to hurt yourself or someone else? Patient reports no desire to harm self or others. Onset of symptoms was November 03, 2019. 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 - Social history:: Smoking status: Patient denies any tobacco usage or history of. - Family history:: not pertinent. - Hospitalizations: : No recent hospitalization is reported. Screenin:10 Abuse screen: Denies threats or abuse. Denies injuries from another. Nutritional rr5 screening: No deficits noted. Tuberculosis screening: No symptoms or risk factors identified. Fall Risk None identified. Total Dumont Fall Scale indicates No Risk (0-24 pts). Assessment: 02:10 General: Appears in no apparent distress. uncomfortable, Behavior is anxious, crying. rr5 02:10 Pain: Denies pain. Neuro: Level of Consciousness is awake, alert, obeys commands, rr5 Oriented to person, place, time, situation, Appropriate for age. Cardiovascular: Capillary refill < 3 seconds Patient's skin is warm and dry. Respiratory: Airway is patent Respiratory effort is even, unlabored, Respiratory pattern is regular, symmetrical. GI: No signs and/or symptoms were reported involving the gastrointestinal system. : No signs and/or symptoms were reported regarding the genitourinary system. EENT: No signs and/or symptoms were reported regarding the EENT system. Derm: Skin is intact, is healthy with good turgor, Skin temperature is warm. Musculoskeletal: Capillary refill < 3 seconds. 03:00 Reassessment: Patient appears in no apparent distress at this time. for observation. rr5 03:15 Reassessment: Patient appears in no apparent distress at this time. reassess by ED rr5 provider with order for discharge. 03:30 Reassessment: Patient appears in no apparent distress at this time. Patient is alert, rr5 oriented x 3, equal unlabored respirations, skin warm/dry/pink. discharge instruction given and explained without complaints made. Vital Signs: 02:06 BP 122 / 71; Pulse 106; Resp 18; Temp 98.0; Pulse Ox 97% on R/A; Weight 95.25 kg; Height 5 ft. 11 in. (180.34 cm); Pain 0/10; 03:00 BP 110 / 75; Pulse 92; Resp 17; Pulse Ox 98% ; rr5 03:31 BP 99 / 62; Pulse 85; Resp 19; Pulse Ox 99% ; rr5 02:06 Body Mass Index 29.29 (95.25 kg, 180.34 cm) ED Course: 02:00 Patient arrived in ED. bp1 02:00 Gera Mcmullen, ALEX is Primary Nurse. rr5 02:02 Faisal Mata MD is Attending Physician. rn 02:07 Triage completed. 02:08 Arm band placed on right wrist. 02:10 Patient has correct armband on for positive identification. Bed in low position. rr5 03:31 No provider procedures requiring assistance completed. Patient did not have IV access rr5 during this emergency room visit. Administered Medications: No medications were administered Outcome: 03:19 Discharge ordered by . rn 03:31 Discharged to home ambulatory. rr5 03:31 Condition: stable 03:31 Discharge instructions given to patient, Instructed on discharge instructions, follow up and referral plans. Demonstrated understanding of instructions, follow-up care. 03:33 Patient left the ED. rr5 Signatures: Faisal Mata MD MD rn Smirch, Shelby, RN RN Gera Mcmullen RN RN rr5 Niya Beck [facility] Corrections: (The following items were deleted from the chart) 03:33 02:10 rr5 rr5
[2019-11-03 03:38] VITALS: TEMP 98
[2019-11-03 03:40] VITALS: BP 99/62; O2SAT 99
== END 2019-11-03 03:33 | disposition home or self-care (01) ==
LOC: ER 01:57
DX: F41.9 Anxiety disorder, unspecified (principal); Z88.1 Allergy status to other antibiotic agents; Z88.5 Allergy status to narcotic agent; Z88.6 Allergy status to analgesic agent; Z88.8 Allergy status to other drugs, medicaments and biological substances
CPT/HCPCS: 99281

== ENCOUNTER 2019-12-17 23:40 | Emergency (ER) | payer BC ==
--- OUTSIDE RECORDS SUMMARY | 2019-12-17 23:42 | XMS REPORT | Clinical Summary ---
:1995 Author Organization [facility] Address [address] [place] [address] Care Team Providers Name Role Phone Pcp [...] radiological examination of breast (Primary Dx) after 12/16/2018 Social History Tobacco Use Types Packs/Day Years [...] Abnormal finding on Results for this AM MAGNET MAKER radiological procedure are i n examination of breast the re sults section. after 12/16/2018 Results US Breast Bilateral (04/17/2019 10:53 AM MAGNET MAKER) Specimen Narrative Performed At Addendum Begins GE RIS Normal Exam AMENDMENT: 04/18/2019 Luke Forte M.D. The 02/27/[address] without contrast w as available for correlation. Amended BI-RADS: 2 Benign Addendum Ends #[id number] - MM, U/S, BREAST, BILATERAL ULTRASOUND OF [...] 11:24:17 Normal Exam Ultrasound BI-RADS: 2 Benign [id number] Procedure Note Interface, External Ris In - 04/18/2019 12:23 PM MAGNET MAKER Addendum Begins Normal Exam AMENDMENT: 04/18/2019 Baltazar Galindo The 02/27/[address] without contrast w as available for correlation. Amended BI-RADS: 2 Benign Addendum Ends #[id number] - MM, U/S, BREAST, BILATERAL ULTRASOUND OF [...] 11:24:17 Normal Exam Ultrasound BI-RADS: 2 Benign [id number] Performing Organization Address City/State/Zipcode Phone Number GE RIS after 12/16/2018 Insurance Payer Benefit Plan / Subscriber ID Type Phone Address Group BLUE CROSS/BLUE BCBS OS xxxxxxxxxxxxxxx PPO [phone] [address] SHIELD POS/PPO/[place] [address]
--- OUTSIDE RECORDS SUMMARY | 2019-12-17 23:42 | XMS REPORT | Continuity of Care Document ---
:1995 Author Organization [facility] t Address [address] [place] [address] Care Team Providers Name Role Phone Pcp Primary Care Physician Unavailable Jada TONG Attending Clinician Eliud Preciado Attending Clinician Leon Preciado MD Attending Clinician Payers Payer Name Policy Type Policy Number Effective Date Expiration Date S jennifer BLUE CROSS/BLUE xxxxxxxxxxxxxxx [facility] SHIELDBC[facility] OS - Medical POS/PPO/EPOxxxxx Leiter [id number] [facility] [id number], [place] [address] Problems Condition Condition Condition Status Onset Resolution Last Treating Co mments Source Name Details Category Date Date Treatment Clinician Date Abnormal Abnormal Problem [facility] Memory Memory Problem Active [facility] difficulti difficulti Pricilla kes - es es [facility] Shoulder Shoulder Problem Active [facility] impingemen impingemen Pricilla kes - t syndrome t syndrome [facility] Asthma Asthma Problem [facility] Edema Edema Problem [facility] Anxiety Anxiety Problem [facility] Rotator Rotator Problem Active [facility] cuff cuff [facility] - impingemen impingemen Me moria t syndrome t syndrome l [facility] Migraines Migraines Problem Active [facility] Depression Depression Problem Active [facility] Muscle Muscle Problem Active [facility] pain pain [facility] - Memoria l [facility] Mild Mild Problem Active [facility] asthma [...] ents Source Name Type Date Date Clinician Zofran Adverse Active Info Not [facility] Reaction Available [facility] Phenerga Adverse Active Info Not [facility] n Reaction Available [facility] Meloxica Adverse Active Info Not [facility] m Reaction Available [facility] Social History Social Habit Start Date Stop Date Quantity Comments Source Sex Assigned At [facility] Medications Ordered Filled Start Stop Current Ordering Indication Dosage Frequency Signature Comments Components Source Medication Medication Date Date Medication? Clinician (SIG) Name Name PredniSONE PredniSONE 2018-05 2019- No Mans[place] [address] [facility] 05-18 [facility] - 00:00: 00:00 Memoria 00 :00 [facility] Albuterol Albuterol 2017-05 Yes Mansoor [address] [facility] Sulfate Sulfate 1-05 Hein needed [facility] - 00:00: Memoria 00 l [facility] Symbicort Symbicort 2019- No Mansoor [address] 8-13 11- Hein [facility] - 00:00: 00:00 Memoria 00 :00 l [facility] Biotin Biotin Yes Mansoor not [facility] Hein defined [facility] Zantac Zantac Yes Mansoor 1 tablet [facility] Vitamin D-3 Vitamin D-3 Yes Mansoor [address] [facility] Hein [facility] Duexis Duexis Yes Mansoor 1 tablet [facility] [...] Procedure Date / Time Performed Performing Clinician Sour e US BREAST BILATERAL 2019-04-17 10:53:00 Polo Preciado [facility] Encounters Start End Encounter Admission Attending Care Care Encounter Source Date/Time Date/Time Type Type Clinicians Facility Department ID 2019-09-06 2019-09-06 Office Pranay Elias [id number] 10:14:55 10:54:55 Visit AMBULATOR [id number] Y [id number] 2019-08-22 2019-08-22 [facility] [id number] [facility] 14:02:00 14:02:00 [employer] [facility] Medicine Outpati ent Clinics 2019-08-08 2019-08-08 [facility] [id number] 11:03:00 11:03:00 t [employer] [facility] Medicine Outpati ent Clinics 2019-03-18 2019-03-18 [facility] [id number] [address] 13:45:00 13:45:00 t [place] [employer] [facility] Medicine l Medicine Outpati ent Clinics 2019-02-20 2019-02-20 [facility] [id number] 09:43:00 09:43:00 t [place] [employer] [facility] Medicine Medicine Outpati ent Clinics 2019-01-30 2019-01-30 Office JANINA Preciado [id number] 08:24:11 09:27:15 Visit Polo Quintero AMBULATOR [id number] Y [id number] 2019-01-28 2019-01-28 [facility] [id number] [address] 14:00:00 14:00:00 [place] [facility] Luke s - Drive [facility] Medicine Outpati ent Clinics 2018-11-21 2018-11-21 [facility] [id number] [address] 11:00:00 11:00:00 [place] [employer] Luke s - Drive [facility] Medicine Outpati ent Clinics 2018-09-04 2018-09-04 [facility] [id number] 08:00:00 08:00:00 t [place] [facility] [employer] s - Drive [facility] l Medicine Outpati ent Clinics 2018-08-16 2018-08-16 [facility] [id number] 11:30:00 11:30:00 [place] [employer] Luke s - Drive [facility] Medicine Outpati ent Clinics 2018-08-07 2018-08-07 [facility] [id number] 10:45:00 10:45:00 t [place] [employer] s - Drive [facility] Medicine Outpati ent Clinics 2018-01-29 2018-01-29 [facility] [id number] 13:30:00 13:30:00 t [place] [facility] Luke s - Drive [facility] Medicine Outpati ent Clinics 2017-12-11 2017-12-11 [facility] [id number] 10:30:00 10:30:00 [place] [employer] Luke s - Drive [facility] Medicine Outpati ent Clinics 2017-10-02 2017-10-02 [facility] [id number] 15:40:00 15:40:00 t [place] [facility] [employer] - Drive [facility] Medicine Outpati ent Clinics 2017-09-21 2017-09-21 [facility] [id number] 09:45:00 09:45:00 [facility] 2017-08-30 2017-08-30 Outpatient Jsesee Hookst [id number] 09:08:00 09:08:00 [facility] 2017-08-15 2017-08-15 [facility] [id number] 09:59:00 09:59:00 [facility] 2017-07-31 2017-07-31 [facility] [id number] 10:57:00 10:57:00 [facility] 2017-07-20 2017-07-20 [facility] [id number] 09:00:00 09:00:00 [facility] Results Test Test Test Comments Results Result Source Description Time Comments MM, U/S, 2019-03- Diagnostic Addendum BeginsN#: BREAST, 19 workup per [id number] Exam BILATERAL 09:27:00 radiologist?->Ye AMENDMENT: 04/18/2019 sReason for Luke Forte M.D. The Exam:->R92.8 02/27/[address] ABNORMAL FINDING without contrast was ON RADIOLOGICAL available for EXAMINATION OF correlation. Amended BREAST BI-RADS: 2 Benign Addendum EndsN#: [id number] - MM, U/S, BREAST, BILATERALULTRASOUND OF RIGHT [...] 11:24:17 Normal Exam Ultrasound BI-RADS: 2 Benign [id number] Breast 2019-03- Interface, External Ris C [facility] Bilateral 18 In - 04/18/2019 12:23 Joseph es - 11:24:00 PM CSTAddendum [facility] [id number] Exam AMENDMENT: 04/18/2019 Luke Forte M.D. The 02/27/[address] without contrast was available for correlation. Amended BI-RADS: 2 Benign Addendum EndsMRN#: [id number] - MM, U/S, BREAST, BILATERALULTRASOUND OF RIGHT [...] 11:24:17 Normal Exam Ultrasound BI-RADS: 2 Benign [id number]
[2019-12-18] MEDS ORDERED: ACETAMINOPHEN 500 MG TAB ONE (00:18)
[2019-12-18] MEDS ORDERED: NA CHLORIDE 0.9% 1,000 ML ONE (00:22)
[2019-12-18 00:25] LABS: ALT/SGPT 18 U/L (12-78); AST/SGOT 12 U/L (15-37); Absolute Lymphocytes (CBC) 2.1 K/uL (0.7-4.9); Albumin 3.6 g/dL (3.4-5.0); Alkaline Phosphatase 44 U/L (45-117); BUN Blood Urea Nitrogen 6 mg/dL (7-18); Basophils % 0.5 % (0-1.3); Bicarbonate 21 mmol/L (21-32); Bilirubin Direct 0.1 mg/dL (0-0.2); Bilirubin Total 0.4 mg/dL (0.2-1.0); Glucose Level 88 mg/dL (74-106); Hematocrit 35.9 % (36.0-45.0); Lipase 171 U/L (73-393); Lymphocytes % 24.6 % (15.3-44.8); MPV 10.8 fL (7.6-11.3); Potassium 3.6 mmol/L (3.5-5.1); Protein, Total 6.9 g/dL (6.4-8.2); RBC Red Blood Cell Count 3.96 M/uL (3.86-4.86); Sodium Level 138 mmol/L (136-145)
[2019-12-18 00:48] LABS: Urine Blood NEGATIVE (NEG); Urine Glucose NEGATIVE (NEG); Urine Protein NEGATIVE (NEG); Urine Specific Gravity >1.030 (1.005-1.030); Urine pH 6.5 (5.0-7.0)
--- NOTE | 2019-12-18 01:14 | ER ---
Nurse's Notes [facility] Name: Tiffany Madrid Age: 24 yrs Sex: Female : 1995 Arrival Date: 12/17/2019 Time: 23:43 Bed 5 Private MD: Mansoor Hein Diagnosis: Right upper quadrant pain. 2 nd Trimester Presentation: 12/16 23:55 Chief complaint: Patient states: my right side is hurting started today after I rr5 vomited. denies urine problem. 23:55 Coronavirus screen: At this time, the client does not indicate any symptoms associated rr5 with coronavirus-19. Ebola Screen: Patient negative for fever greater than or equal to 101.5 degrees Fahrenheit, and additional compatible Ebola Virus Disease symptoms Patient denies exposure to infectious person. Patient denies travel to an Ebola-affected area in the 21 days before illness onset. Initial Sepsis Screen: Does the patient meet any 2 criteria? No. Patient's initial sepsis screen is negative. Does the patient have a suspected source of infection? No. Patient's initial sepsis screen is negative. Risk Assessment: Do you want to hurt yourself or someone else? Patient reports no desire to harm self or others. Onset of symptoms was December 17, 2019. 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 - Social history:: Smoking status: Patient reports the use of cigarette tobacco products, smokes one-half pack cigarettes per day, Smoking status: Patient/guardian denies using tobacco. Screenin:03 Abuse screen: Denies threats or abuse. Nutritional screening: No deficits noted. ea Tuberculosis screening: No symptoms or risk factors identified. Fall Risk IV access (20 points). Assessment: 00:00 General: Appears in no apparent distress. uncomfortable, Behavior is calm, cooperative, rr5 appropriate for age. 00:00 Pain: Complains of pain in anterior aspect of right lateral abdomen Pain radiates to rr5 abdomen Pain currently is 8 out of 10 on a pain scale. Quality of pain is described as aching, stabbing, Pain began gradually. Neuro: Level of Consciousness is awake, alert, obeys commands, Oriented to person, place, time, situation. Cardiovascular: Capillary refill < 3 seconds Patient's skin is warm and dry. Respiratory: Airway is patent Respiratory effort is even, unlabored, Respiratory pattern is regular, symmetrical. GI: Abdomen is round non-distended, Reports upper abdominal pain, nausea, vomiting. : Reports pain in right flank(s), Denies burning with urination. EENT: No signs and/or symptoms were reported regarding the EENT system. Derm: Skin is intact, is healthy with good turgor, Skin temperature is warm. Musculoskeletal: Circulation, motion, and sensation intact. Capillary refill < 3 seconds. 00:13 Reassessment: Heart tones 160. ea 01:09 Reassessment: Patient appears in no apparent distress at this time. Patient is alert, rr5 oriented x 3, equal unlabored respirations, skin warm/dry/pink. Patient states feeling better. Patient states symptoms have improved. Vital Signs: 12/16 23:55 BP 118 / 76; Pulse 76; Resp 19; Temp 98.6; Pulse Ox 100% ; Weight 93.89 kg; Height 5 rr5 ft. 10 in. (177.80 cm); Pain 8/10; 23:55 Body Mass Index 29.70 (93.89 kg, 177.80 cm) rr5 ED Course: 23:43 Patient arrived in ED. am2 23:44 Cecilio Hein MD is Private Physician. am2 23:44 Mansoor Hein DO is Private Physician. am2 23:45 Gera Mcmullen RN is Primary Nurse. rr5 23:45 Thompson Erickson MD is Attending Physician. pkl 23:59 Inserted saline lock: 20 gauge in left antecubital area, using aseptic technique. Blood ds4 collected. 12/17 00:02 Patient has correct armband on for positive identification. Placed in gown. Bed in low ea position. Call light in reach. Side rails up X2. 00:03 Triage completed. rr5 00:03 Arm band placed on right wrist. Patient placed in an exam room, on a stretcher, on ea pulse oximetry. 01:18 No provider procedures requiring assistance completed. IV discontinued, intact, ea bleeding controlled, No redness/swelling at site. Pressure dressing applied. Administered Medications: 00:09 Not Given (Duplicate Order): Tylenol 1000 mg PO once pkl 00:10 Drug: Tylenol 1000 mg Route: PO; rr5 01:20 Follow up: Response: No adverse reaction ea 00:14 Drug: NS 0.9% 1000 ml Route: IV; Rate: 1000 ml; Site: left antecubital; rr5 01:20 Follow up: Response: No adverse reaction; IV Status: Completed infusion; IV Intake: ea 1000ml Intake: 01:20 IV: 1000ml; Total: 1000ml. ea Outcome: 01:14 Discharge ordered by . pkl 01:19 Discharged to home ambulatory. ea 01:19 Condition: stable 01:19 Discharge instructions given to patient, Instructed on discharge instructions, follow up and referral plans. Demonstrated understanding of instructions, follow-up care. 01:20 Patient left the ED. ea Signatures: Thompson Erickson MD MD pkZheng Greenberg ds4 Radha Grimm am2 Vikki Frye RN RN ea Gera Mcmullen RN RN rr5
--- NOTE | 2019-12-18 01:15 | EDPHYS ---
Physician Documentation [facility] Name: Tiffany Madrid Age: 24 yrs Sex: Female : 1995 Arrival Date: 12/17/2019 Time: 23:43 Bed 5 Private MD: Angel Luis Replaced By [facility] ED Physician Thompson Erickson HPI: 12/17 00:10 This 24 yrs old Female presents to ER via Wheelchair with complaints of Flank pkl Pain, Nausea/Vomiting. 00:10 The patient presents with abdominal pain in the right upper quadrant. Onset: The pkl symptoms/episode began/occurred just prior to arrival. The symptoms radiate to right back. Associated signs and symptoms: Pertinent positives: nausea and vomiting. Patient said she is 14 weeks . 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 - Social history:: Smoking status: Patient reports the use of cigarette tobacco products, smokes one-half pack cigarettes per day, Smoking status: Patient/guardian denies using tobacco. ROS: 00:10 Eyes: Negative for injury, pain, redness, and discharge, ENT: Negative for injury, pkl pain, and discharge, Neck: Negative for injury, pain, and swelling, Cardiovascular: Negative for chest pain, palpitations, and edema, Respiratory: Negative for shortness of breath, cough, wheezing, and pleuritic chest pain. 00:10 Abdomen/GI: Positive for abdominal pain, of the right upper quadrant. 00:10 Back: Positive for pain at rest, of the right mid back. 00:10 : Negative for urinary symptoms. 00:10 MS/extremity: Negative for acute changes. 00:10 Skin: Negative for rash. 00:10 Neuro: Negative for altered mental status. Exam: 00:10 Head/Face: Normocephalic, atraumatic. Eyes: Pupils equal round and reactive to light, pkl extra-ocular motions intact. Lids and lashes normal. Conjunctiva and sclera are non-icteric and not injected. Cornea within normal limits. Periorbital areas with no swelling, redness, or edema. ENT: Nares patent. No nasal discharge, no septal abnormalities noted. Tympanic membranes are normal and external auditory canals are clear. Oropharynx with no redness, swelling, or masses, exudates, or evidence of obstruction, uvula midline. Mucous membranes moist. Neck: Trachea midline, no thyromegaly or masses palpated, and no cervical lymphadenopathy. Supple, full range of motion without nuchal rigidity, or vertebral point tenderness. No Meningismus. Chest/axilla: Normal chest wall appearance and motion. Nontender with no deformity. No lesions are appreciated. Cardiovascular: Regular rate and rhythm with a normal S1 and S2. No gallops, murmurs, or rubs. Normal PMI, no JVD. No pulse deficits. Respiratory: Lungs have equal breath sounds bilaterally, clear to auscultation and percussion. No rales, rhonchi or wheezes noted. No increased work of breathing, no retractions or nasal flaring. 00:10 Abdomen/GI: Bowel sounds: normal, Palpation: soft, mild abdominal tenderness, in the right upper quadrant. 00:10 Back: Exam negative for acute changes. 00:10 : Exam negative for acute changes. 00:10 Musculoskeletal/extremity: Exam is negative for acute changes. 00:10 Skin: Exam negative for rash. 00:10 Neuro: Orientation: is normal, Mentation: is normal, Cranial nerves: grossly normal, Motor: is normal. Vital Signs: 12/16 23:55 BP 118 / 76; Pulse 76; Resp 19; Temp 98.6; Pulse Ox 100% ; Weight 93.89 kg; Height 5 rr5 ft. 10 in. (177.80 cm); Pain 8/10; 23:55 Body Mass Index 29.70 (93.89 kg, 177.80 cm) rr5 MDM: 23:45 Patient medically screened. pkl 12/17 01:08 Data reviewed: vital signs, nurses notes, lab test result(s). ED course: Patient pkl feeling better. Discussed lab. results with patient. Advised US gallbladder as outpatient for further evaluations. To keep appt. with Dr. Mendoza this . Return if necessary. Patient understood instructions. 12/16 23:54 Order name: Basic Metabolic Panel; Complete Time: 01: 12/16 23:54 Order name: CBC with Diff; Complete Time: : 12/16 23:54 Order name: Hepatic Function; Complete Time: : 12/16 23:54 Order name: Lipase; Complete Time: 01: 12/17 00:14 Order name: Urine Dipstick--Ancillary (enter results); Complete Time: : [facility] 12/17 00:14 Order name: Urine --Ancillary (enter results); Complete Time: : [facility] 12/16 23:54 Order name: IV Saline Lock; Complete Time: 00:06 12/16 23:54 Order name: Labs collected and sent; Complete Time: 00:06 12/17 00:06 Order name: Urine Dipstick-Ancillary (obtain specimen); Complete Time: 00:06 [facility] 12/17 00:06 Order name: Urine Test (obtain specimen); Complete Time: 00:06 [facility] 12/17 00:08 Order name: Heart Tones; Complete Time: 00:11 pkl Administered Medications: 00:09 Not Given (Duplicate Order): Tylenol 1000 mg PO once pkl 00:10 Drug: Tylenol 1000 mg Route: PO; rr5 01:20 Follow up: Response: No adverse reaction ea 00:14 Drug: NS 0.9% 1000 ml Route: IV; Rate: 1000 ml; Site: left antecubital; rr5 01:20 Follow up: Response: No adverse reaction; IV Status: Completed infusion; IV Intake: ea 1000ml Disposition: 12/18/19 01:14 Discharged to Home. Impression: Right upper quadrant pain. 2 nd Trimester . - Condition is Stable. - Medication Reconciliation Form, Thank You Letter, Antibiotic Education, Prescription Opioid Use form. Signatures: Dispatcher [facility] EDAL Thompson Erickson MD MD pkl Antunez, Elena RN Gera Marshall ea, RN RN rr5 Corrections: (The following items were deleted from the chart) 01:20 01:14 12/18/2019 01:14 Discharged to Home. Impression: Right upper quadrant pain. 2 nd ea Trimester . Condition is Stable. Forms are Medication Reconciliation Form, Thank You Letter, Antibiotic Education, Prescription Opioid Use. pkl
[2019-12-18 01:33] VITALS: BP 118/76; TEMP 98.6; O2SAT 100
== END 2019-12-18 01:20 | disposition home or self-care (01) ==
LOC: ER 23:40
DX: O26.892 Other specified pregnancy related conditions, second trimester (principal); O99.332 Smoking (tobacco) complicating pregnancy, second trimester; O99.342 Other mental disorders complicating pregnancy, second trimester; F41.9 Anxiety disorder, unspecified; Z3A.14 14 weeks gestation of pregnancy; Z88.1 Allergy status to other antibiotic agents; Z88.8 Allergy status to other drugs, medicaments and biological substances
CPT/HCPCS: 85025; 80048; 36415; 81025; 80076; 81003; 83690; 96360; 99284; J7030